=== PATIENT | male | born 1975 | race Caucasian/White ===

== ENCOUNTER 2018-02-07 11:58 | Emergency (ER) | payer MEDICARE, MEDICAID, SELFPAY ==
[2018-02-07 12:04] VITALS: BP 108/77; PULSE 99; RESP 18; TEMP 36.6; O2SAT 98
--- NOTE | 2018-02-07 12:24 | W.ED.GENAD ---
Discharge Plan Disposition Patient Disposition: HOME Condition: Good Discharge Details Chief Complaint: RespSymp Clinical Impression: Acute bronchitis Primary Care Provider: NONE,NONE ED Provider: Ibrahima Akhtar Home Meds and New Rx's Prescriptions: New doxycycline hyclate 100 mg capsule 100 mg PO BID 10 Days Qty: 20 RF: 0 Continue aripiprazole [Abilify] 20 MG tablet 20 mg PO DAILY RF: 0 Discharge Instructions Additional Instructions: Return for worsening difficulty breathing, chest pain, or any other acute concerns. Continue your efforts to decrease smoking. Follow-up with regular doctor if not improved in 1 weeks to Medical Decision Making MDM Narrative Medical decision making narrative: 42-year-old male presents with cough, congestion, production of sputum and sinus pressure over 2 weeks time. He is a smoker. Is consistent with acute sinusitis and bronchitis. He is without distress or hypoxia. Will treat with a course of antibiotics. Discussed with the patient home management, as well as follow-up and return precautions. Stable for discharge at this time HPI - General Adult General Date/Time Provider Initiated Documentation: 02/07/18 12:24. Limitations to Documentation: no limitations. Information obtained by: patient. History of Present Illness described as moderate, and is localized to the chest. Patient started experiencing this day(s) No relieving factors improve symptom(s), Patient notes cough; denies chest pain. Patient did receive the following treatments prior to arrival, none HPI Narrative: Cough and congestion: This is a 42-year-old male smoker presents with now 2 weeks of sinus pressure, postnasal drip, dull, nearly constant cough productive of yellow sputum. Is been moderate to severe, worsened with smoking, improved with rest. He has positive sick contacts with a friend. No shortness of breath or chest pain. Related Data Home Medications Medication Instructions Recorded Confirmed aripiprazole [Abilify] 20 mg PO DAILY 10/27/12 02/07/18 Previous Rx's Medication Instructions Recorded doxycycline hyclate 100 mg PO BID 10 Days #20 cap 02/07/18 Allergies Allergy/AdvReac Type Severity Reaction Status Date / Time healy milk AdvReac Uncoded 02/07/18 12:09 General Stated Complaint: RespSymp ARNAV: 4 Review of Systems Review of Systems 7 systems reviewed, otherwise negative Constitutional Reports as per HPI PFSH Social History Smoking/Tobacco Use Status: Current every day Exam Const General: cooperative, healthy appearing and comfortable Orientation: alert [facility] Head: normal to inspection and normocephalic Ears: hearing grossly normal bilaterally and TM's normal bilaterally Face and sinus: normal facial exam and sinus tenderness Eyes General: appearance normal, both eyes and all related structures Eyelids: eyelids normal Pupils: PERRL Chest Chest: normal inspection of the chest and normal palpation of entire chest wall Resp Effort & Inspection: normal respiratory effort and able to speak in complete sentences Auscultation: clear to auscultation bilaterally and other (Cough noted) GI Inspection: normal to inspection Palpation: soft and no hepatosplenomegaly Neuro General: alert, awake and oriented x3 Extrem General: normal to inspection and full ROM Psych Appearance: grossly normal Mental Status: mental status grossly normal Speech and Movement: speech and movement normal Course Vital Signs Temperature 36.6 C 02/07/18 12:04 Pulse 99 H 02/07/18 12:04 Respiratory Rate 02/07/18 12:04 Blood Pressure 108/77 02/07/18 12:04 Pulse Oximetry 98 02/07/18 12:04 Temperature 36.6 C 02/07/18 12:04 Pulse 99 H 02/07/18 12:04 Respiratory Rate 18 02/07/18 12:04 Blood Pressure 108/77 02/07/18 12:04 Pulse Oximetry 98 02/07/18 12:04
--- NOTE | 2018-02-07 12:29 | ED.GENADUL_ITS ---
Discharge Plan Disposition Patient Disposition: HOME Condition: Good Discharge Details Chief Complaint: RespSymp Clinical Impression: Acute bronchitis Primary Care Provider: NONE,NONE ED Provider: Ibrahima Akhtar Home Meds and New Rx's Prescriptions: New doxycycline hyclate 100 mg capsule 100 mg PO BID 10 Days Qty: 20 RF: 0 Continue aripiprazole [Abilify] 20 MG tablet 20 mg PO DAILY RF: 0 Discharge Instructions Additional Instructions: Return for worsening difficulty breathing, chest pain, or any other acute concerns. Continue your efforts to decrease smoking. Follow-up with regular doctor if not improved in 1 weeks to Medical Decision Making MDM Narrative Medical decision making narrative: 42-year-old male presents with cough, congestion, production of sputum and sinus pressure over 2 weeks time. He is a smoker. Is consistent with acute sinusitis and bronchitis. He is without distress or hypoxia. Will treat with a course of antibiotics. Discussed with the patient home management, as well as follow-up and return precautions. Stable for discharge at this time HPI - General Adult General Date/Time Provider Initiated Documentation: 02/07/18 12:24 . Limitations to Documentation: no limitations . Information obtained by: patient . History of Present Illness described as moderate, and is localized to the chest. Patient started experiencing this day(s) No relieving factors improve symptom(s), Patient notes cough; denies chest pain. Patient did receive the following treatments prior to arrival, none HPI Narrative: Cough and congestion: This is a 42-year-old male smoker presents with now 2 weeks of sinus pressure, postnasal drip, dull, nearly constant cough productive of yellow sputum. Is been moderate to severe, worsened with smoking, improved with rest. He has positive sick contacts with a friend. No shortness of breath or chest pain. Related Data Home Medications Medication Instructions Recorded Confirmed aripiprazole [Abilify] 20 mg PO DAILY 10/27/12 02/07/18 Previous Rx's Medication Instructions Recorded doxycycline hyclate 100 mg PO BID 10 Days #20 cap 02/07/18 Allergies Allergy/AdvReac Type Severity Reaction Status Date / Time healy milk AdvReac Uncoded 02/07/18 12:09 General Stated Complaint: RespSymp ARNAV: 4 Review of Systems Review of Systems 7 systems reviewed, otherwise negative Constitutional Reports as per HPI PFSH Social History Smoking/Tobacco Use Status: Current every day Exam Const General: cooperative, healthy appearing and comfortable Orientation: alert [facility] Head: normal to inspection and normocephalic Ears: hearing grossly normal bilaterally and TM's normal bilaterally Face and sinus: normal facial exam and sinus tenderness Eyes General: appearance normal, both eyes and all related structures Eyelids: eyelids normal Pupils: PERRL Chest Chest: normal inspection of the chest and normal palpation of entire chest wall Resp Effort & Inspection: normal respiratory effort and able to speak in complete sentences Auscultation: clear to auscultation bilaterally and other (Cough noted) GI Inspection: normal to inspection Palpation: soft and no hepatosplenomegaly Neuro General: alert, awake and oriented x3 Extrem General: normal to inspection and full ROM Psych Appearance: grossly normal Mental Status: mental status grossly normal Speech and Movement: speech and movement normal Course Vital Signs Temperature 36.6 C 02/07/18 12:04 Pulse 99 H 02/07/18 12:04 Respiratory Rate 02/07/18 12:04 Blood Pressure 108/77 02/07/18 12:04 Pulse Oximetry 98 02/07/18 12:04 Temperature 36.6 C 02/07/18 12:04 Pulse 99 H 02/07/18 12:04 Respiratory Rate 18 02/07/18 12:04 Blood Pressure 108/77 02/07/18 12:04 Pulse Oximetry 98 02/07/18 12:04
== END 2018-02-07 12:40 | disposition home or self-care (01) ==
PROVIDERS: Emergency Provider Emergency Medicine
DX: J20.9 Acute bronchitis, unspecified (principal); F17.210 Nicotine dependence, cigarettes, uncomplicated
CPT/HCPCS: 99283

== ENCOUNTER 2021-07-28 01:15 | Emergency (ER) | payer MEDICARE, MEDICAID, SELFPAY ==
[2021-07-28 01:20] VITALS: BP 125/86; PULSE 120; RESP 18; TEMP 36.6; O2SAT 98
--- NOTE | 2021-07-28 01:25 | W.ED.GENAD ---
Discharge Plan Disposition Patient Disposition: HOME Condition: Good Discharge Details Clinical Impression: Pain, dental, Dental infection Primary Care Provider: None,None ED Provider: Vernon Fisher Home Meds and New Rx's Prescriptions: New penicillin V potassium 500 mg tablet 500 mg PO QID 10 Days Qty: 40 0RF Continued aripiprazole [Abilify] 20 MG tablet 20 mg PO DAILY 0RF Label Comments: states he doesn't need it-06/26-may take med tonight, pt states that he last took this yesterday 06/27/15 Discharge Instructions Instructions: Dental Abscess (ED) Additional Instructions: Please take 800 mg of ibuprofen every 6 hours and 1000 mg of Tylenol every 6 hours to help with the inflammation and pain. These are the maximum doses. Please take the antibiotic as directed to help with the infection in your tooth. Please use the dental list that we have provided to contact the dentist for prompt follow-up and evaluation for tooth removal. If you notice any worsening of your symptoms, or any new symptoms such as difficulty swallowing, difficulty breathing, vomiting, diarrhea, fever, chills, shortness of breath, chest pain, numbness, weakness, or fainting , please return immediately to the emergency department for reevaluation. Please follow up with your primary care provider as soon as possible for reassessment and reevaluation. As always, it was a pleasure participating in your medical care today. Medical Decision Making 45-year-old male presents today for dental pain. Patient states that for the last 12 hours he has had pain in his left lower molar. He has not yet been able to follow-up with the dentist. He denies fever. He denies chest pain, shortness of breath, or difficulty swallowing. He has taken Tylenol and Motrin but this has not helped his pain. He denies any other complaints at this time. Physical exam demonstrates notably poor dentition, and disease molars. No evidence of periapical abscess. No signs of Ludewig's angina or airway compromise. Patient likely has mild pulpitis and infection causing his pain. Blood pressure stable. No signs of concerning swelling whatsoever at this time. Patient does not want a dental block currently. We we will give penicillin V here, and a small bottle for home as well as a prescription. He does have a dentist he follows up with however we will give him his dental sheet as well. Discussed red flags which to return. I have extensively reviewed the treatment plan and discharge instructions with the patient. I have addressed all patient concerns at this time. The patient was made aware of what symptoms to monitor for that would warrant a return to the emergency department. Discussed the plan with the patient, they demonstrate verbal understanding and agreement with our assessment and plan at this time. The documentation in this chart was dictated using [employer] dictation software. Please excuse any dictation errors. HPI General Date/Time Provider Initiated Documentation: 07/28/21 01:16. HPI Narrative: 45-year-old male presents today for dental pain. Patient states that for the last 12 hours he has had pain in his left lower molar. He has not yet been able to follow-up with the dentist. He denies fever. He denies chest pain, shortness of breath, or difficulty swallowing. He has taken Tylenol and Motrin but this has not helped his pain. He denies any other complaints at this time. Related Data Home Medications Medication Instructions Recorded Confirmed aripiprazole 20 mg tablet (Abilify) 20 mg PO DAILY 10/27/12 07/28/21 penicillin V potassium 500 mg 500 mg PO QID 10 Days #40 tab 07/28/21 tablet Previous Rx's Medication Instructions Recorded penicillin V potassium 500 mg 500 mg PO QID 10 Days #40 tab 07/28/21 tablet Allergies Allergy/AdvReac Type Severity Reaction Status Date / Time healy milk AdvReac Uncoded 07/28/21 01:23 General Stated Complaint: DentalOral ARNAV: 4 Review of Systems All systems reviewed & are unremarkable except as noted in HPI and below PFSH All Active Problems Psychiatric diagnosis deferred (Acute) Pain, dental (Acute) Dental infection (Acute) Social History Smoking/Tobacco Use Status: Current every day Smoking risk assessment performed?: Yes Drug use: Occasionally Do you feel safe at home: Yes Do you feel safe in your relationship?: Yes Exam Narrative Exam Narrative: 1.Const: Well-nourished, Well-developed, appearing stated age 2.Eyes: PERRL, no conjunctival injection, and symmetrical lids. 3.ENT: Atraumatic external nose and ears. Moist MM. Neck: Symmetric, trachea midline, No thyromegaly. Notably poor dentition throughout. Lower posterior molars are fractured with notable chronic infection. Palpation reveals no evidence of periapical abscess. No significant swelling or edema. No evidence of Ludewig's angina. No signs of airway compromise or jaw swelling whatsoever. 4.CVS: +S1/S2, No murmurs or gallops. Peripheral pulses 2+ and equal in all extremities. Brisk capillary refill in all extremities. 5.RESP: Unlabored respiratory effort. Clear to auscultation bilaterally. No wheezes rales or rhonchi 6.GI: Soft, Nontender/Nondistended, No hepatosplenomegaly. No guarding or rebound. 7.MSK: Normocephalic/Atraumatic, Extremities w/o deformity or ttp No cyanosis or clubbing, Normal movement of all extremities 8.Skin: Warm, Dry. No rashes or lesions. 9.Neuro: basketball assembler II-XII grossly intact. Sensation grossly intact, no focal neurologic deficits. 10.Psych: (AAO) x3. Appropriate mood and affect Course Vital Signs Vital signs: Vital Signs Temperature 36.6 C 07/28/21 01:20 Pulse 120 H 07/28/21 01:20 Respiratory Rate 18 07/28/21 01:20 Blood Pressure 125/86 07/28/21 01:20 Pulse Oximetry 98 07/28/21 01:20 Temperature 36.6 C 07/28/21 01:20 Temperature Source Temporal Artery Scan 07/28/21 01:20 Pulse 120 H 07/28/21 01:20 Respiratory Rate 18 07/28/21 01:20 Blood Pressure 125/86 07/28/21 01:20 Blood Pressure Position Sitting 07/28/21 01:20 Pulse Oximetry 98 07/28/21 01:20 Pain Level 8 07/28/21 01:20
[2021-07-28] MEDS: Penicillin V POTASSIUM 500 MG TAB PO (01:27)
[2021-07-28] MEDS: Penicillin V POTASSIUM 500 MG TAB, 4 TABS/BTL PO (01:27)
== END 2021-07-28 01:32 | disposition home or self-care (01) ==
PROVIDERS: Emergency Provider Student in an Organized Health Care Education/Training Program
DX: R68.84 Jaw pain (principal); K04.7 Periapical abscess without sinus
CPT/HCPCS: 99283

== ENCOUNTER 2022-04-30 22:46 | Emergency (ER) | payer MEDICARE, MEDICAID, SELFPAY ==
[2022-04-30 23:02] VITALS: BP 116/64; PULSE 94; RESP 18; TEMP 37.3; O2SAT 97
--- NOTE | 2022-04-30 23:45 | ED.GENADUL_ITS ---
Discharge Plan Disposition Patient Disposition: Home Condition: Stable Discharge Details Clinical Impression: Sinusitis Primary Care Provider: None,None ED Provider: Mian Villanueva Home Meds and New Rx's Prescriptions: New amoxicillin-pot clavulanate 875-125 mg tablet 1 tab PO BID Qty: 20 0RF Continued cyanocobalamin (vitamin B-12) 1,000 mcg capsule 1,000 mcg PO DAILY gabapentin 100 mg capsule 100 mg PO TID thiamine HCl (vitamin B1) 100 mg tablet 100 mg PO DAILY aspirin [Adult Aspirin Regimen] 81 mg tablet,delayed release (DR/EC) 81 mg PO DAILY multivitamin Tablet 1 tab PO DAILY vitamin E mixed 400 unit capsule PO aripiprazole [Abilify] 20 MG tablet 20 mg PO DAILY Label Comments: states he doesn't need it-06/26-october take med tonight, pt states that he last took this yesterday 06/27/15 Discharge Instructions Instructions: Sinusitis (ED) Additional Instructions: if not better or improving within a week follow up with your primary care provider or express care if you feel more ill, have difficulty breathing or difficulty swallowing liquids return to the emergency department Medical Decision Making 46 yo male who states he has a history of asthma and also chronic smoker, comes in with 1 week of sinus congestion, mild sore throat and dry cough. He denies fevers, chills, chest pain, dyspnea, neck pain/stiffness, difficulty swallowing, rashes. He kermit alcohol or drug use. He arrives stable speaking in full sentences with normal swallowing on exam. He has pain with percussion over the maxillary sinuses, no periorbital swelling, eomi without pain, normal posterior pharynx with midline uvula, no restricted neck movements, no pain over the hyoid no submandibular swelling. Clear lung sounds. Given his well appearance suspect viral sinusitis vs uri but given it has been a week feel antibiotics could be of benefit so will start augmentin. He appears well and has clear lung sounds so do not feel xray indicated. He is out of his albuterol inhaler and is between pcp's so will provide this for him. He is stable for d/c, advised to f/u with pcp vs express care if not improving within a week, return precautions given Differential Diagnosis Differential Diagnosis: sinusitis, viral uri, bronhcitis, asthma, copd Sign Out No HPI General Mode of arrival: ambulatory . Date/Time Provider Initiated Documentation: 04/30/22 23:37 . Limitations to Documentation: no limitations . Information obtained by: patient . History of Present Illness 46 year old M presents to the emergency department with the chief complaint of sinus congestion, described as moderate, Patient started experiencing this week(s) (1) and it has been constant. No relieving factors improve symptom(s), No exacerbating factors reported . Patient notes cough. Patient did receive the following treatments prior to arrival, none Related Data Home Medications Medication Instructions Recorded Confirmed aripiprazole 20 mg tablet (Abilify) 20 mg PO DAILY 10/27/12 07/28/21 aspirin 81 mg tablet,delayed 81 mg PO DAILY 04/24/22 release (Adult Aspirin Regimen) cyanocobalamin (vitamin B-12) 1,000 mcg PO DAILY 04/24/22 1,000 mcg capsule gabapentin 100 mg capsule 100 mg PO TID 04/24/22 multivitamin 1 tab PO DAILY 04/24/22 thiamine HCl (vitamin B1) 100 mg 100 mg PO DAILY 04/24/22 tablet vitamin E mixed 400 unit capsule unit PO 04/24/22 amoxicillin 875 mg-potassium 1 tab PO BID #20 tabs 04/30/22 clavulanate 125 mg tablet Previous Rx's Medication Instructions Recorded amoxicillin 875 mg-potassium 1 tab PO BID #20 tabs 04/30/22 clavulanate 125 mg tablet Allergies Allergy/AdvReac Type Severity Reaction Status Date / Time bee venom protein (honey bee) Allergy Verified 04/24/22 11:26 naproxen Allergy Verified 04/24/22 11:26 prednisone Allergy Verified 04/24/22 11:26 shrimp Allergy Verified 04/24/22 11:26 healy milk AdvReac Uncoded 07/28/21 01:23 General Stated Complaint: RespSymp ARNAV: 4 Review of Systems All systems reviewed & are unremarkable except as noted in HPI and below Constitutional Constitutional: Denies chills, Denies fever(s) and Denies weakness Eyes Eyes: Denies loss of vision ENT Ears, Nose, Mouth, and Throat: Denies change in voice Cardiovascular Cardiovascular: Denies chest pain and Denies dyspnea Respiratory Respiratory: Denies dyspnea Gastrointestinal Gastrointestinal: Denies abdominal pain, Denies nausea and Denies vomiting Neurologic Neurologic: Denies loss of vision and Denies weakness PFSH All Active Problems (Updated 04/30/22 @ 23:53 by Mian Villanueva MD) Psychiatric diagnosis deferred (Acute) Sinusitis (Acute) Social History Smoking/Tobacco Use Status: Current every day Smoking risk assessment performed?: Yes Alcohol Intake: never Drug use: Occasionally Substance use type: does not use Do you feel safe at home: Yes Do you feel safe in your relationship?: Yes Course Vital Signs Vital signs: Vital Signs Temperature 37.3 C 04/30/22 23:02 Pulse 94 H 04/30/22 23:02 Respiratory Rate 18 04/30/22 23:02 Blood Pressure 116/64 04/30/22 23:02 Pulse Oximetry 97 04/30/22 23:02 Temperature 37.3 C 04/30/22 23:02 Temperature Source Tympanic 04/30/22 23:02 Pulse 94 H 04/30/22 23:02 Respiratory Rate 18 04/30/22 23:02 Respiratory Effort 04/30/22 23:05 Respiratory Depth Normal 04/30/22 23:05 Blood Pressure 116/64 04/30/22 23:02 Blood Pressure Position Supine 04/30/22 23:02 Pulse Oximetry 97 04/30/22 23:02 Oxygen Delivery Method Room Air 04/30/22 23:02 Oxygen Flow Rate 0 04/30/22 23:02 Pain Level 0 04/30/22 23:02
== END 2022-05-01 | disposition home or self-care (01) ==
PROVIDERS: Emergency Provider Emergency Medicine
DX: J01.80 Other acute sinusitis (principal)
CPT/HCPCS: 99283

== ENCOUNTER 2022-05-20 23:26 | Emergency (ER) | payer MEDICARE, MEDICAID, SELFPAY ==
[2022-05-20 23:31] VITALS: BP 124/84; PULSE 92; RESP 18; TEMP 36.4; O2SAT 98
--- NOTE | 2022-05-20 23:49 | ED.GENADUL_ITS ---
Discharge Plan Disposition Patient Disposition: Home Condition: Improving Discharge Details Clinical Impression: Loose sputum Primary Care Provider: None,None ED Provider: Ibrahima Akhtar Home Meds and New Rx's Prescriptions: New guaifenesin [Mucinex] 600 mg tablet extended release 12hr 600 mg PO Q12H PRNQty: 10 0RF Continued cyanocobalamin (vitamin B-12) 1,000 mcg capsule 1,000 mcg PO DAILY gabapentin 100 mg capsule 100 mg PO TID thiamine HCl (vitamin B1) 100 mg tablet 100 mg PO DAILY aspirin [Adult Aspirin Regimen] 81 mg tablet,delayed release (DR/EC) 81 mg PO DAILY multivitamin Tablet 1 tab PO DAILY vitamin E mixed 400 unit capsule PO aripiprazole [Abilify] 20 MG tablet 20 mg PO DAILY Label Comments: states he doesn't need it-06/26-october take med tonight, pt states that he last took this yesterday 06/27/15 No Action amoxicillin-pot clavulanate 875-125 mg tablet 1 tab PO BID Qty: 20 0RF Discharge Instructions Additional Instructions: Home to rest this evening. Please use the Mucinex as prescribed. Continue efforts to decrease tobacco use. There is no evidence that you have a contagious illness at this time. Medical Decision Making 46-year-old male presents from home complaining of persistent cough and congestion, worried that he may have gotten his roommates ill. He was treated for sinusitis at the end of April, completed a course of antibiotics and now states his sputum has changed from green to clear-colored. He is well-appearing and his exam is reassuring. Discussed with him that he may have slowly to resolve sinusitis. We will trial a course of Mucinex. He is stable and appropriate for discharge to home. HPI General Mode of arrival: ambulatory . Date/Time Provider Initiated Documentation: 05/20/22 23:26 . Limitations to Documentation: no limitations . Information obtained by: patient . History of Present Illness 46 year old M presents to the emergency department with the chief complaint of Cough, improving, described as moderate, and is localized to the chest. Patient reports no radiation. Patient started experiencing this day(s) and it has been intermittent. No relieving factors improve symptom(s), No exacerbating factors reported . Patient notes cough; denies fever/chills and headaches. Patient did receive the following treatments prior to arrival, none Related Data Home Medications Medication Instructions Recorded Confirmed aripiprazole 20 mg tablet (Abilify) 20 mg PO DAILY 10/27/12 07/28/21 aspirin 81 mg tablet,delayed 81 mg PO DAILY 04/24/22 release (Adult Aspirin Regimen) cyanocobalamin (vitamin B-12) 1,000 mcg PO DAILY 04/24/22 1,000 mcg capsule gabapentin 100 mg capsule 100 mg PO TID 04/24/22 multivitamin 1 tab PO DAILY 04/24/22 thiamine HCl (vitamin B1) 100 mg 100 mg PO DAILY 04/24/22 tablet vitamin E mixed 400 unit capsule unit PO 04/24/22 amoxicillin 875 mg-potassium 1 tab PO BID #20 tabs 04/30/22 clavulanate 125 mg tablet guaifenesin 600 mg tablet, 600 mg PO Q12H PRN #10 tabs 05/20/22 extended release 12 hr (Mucinex) Previous Rx's Medication Instructions Recorded amoxicillin 875 mg-potassium 1 tab PO BID #20 tabs 04/30/22 clavulanate 125 mg tablet guaifenesin 600 mg tablet, 600 mg PO Q12H PRN #10 tabs 05/20/22 extended release 12 hr (Mucinex) Allergies Allergy/AdvReac Type Severity Reaction Status Date / Time bee venom protein (honey bee) Allergy Verified 04/24/22 11:26 naproxen Allergy Verified 04/24/22 11:26 prednisone Allergy Verified 04/24/22 11:26 shrimp Allergy Verified 04/24/22 11:26 healy milk AdvReac Uncoded 07/28/21 01:23 General Stated Complaint: RespSymp ARNAV: 4 Review of Systems Narrative: Sputum has changed to clear, no fever. PFSH All Active Problems (Updated 05/20/22 @ 23:51 by Ibrahima Akhtar MD) Psychiatric diagnosis deferred (Acute) Sinusitis (Acute) Loose sputum (Acute) Social History Smoking/Tobacco Use Status: Current every day Smoking risk assessment performed?: Yes Alcohol Intake: never Drug use: Occasionally Substance use type: does not use Do you feel safe at home: Yes Do you feel safe in your relationship?: Yes Exam Narrative Exam Narrative: GEN: awake, alert, oriented 3. Pleasant, well groomed, interactive. HEAD: Normocephalic, atraumatic ENT: Mucous membranes moist, oropharynx unremarkable, tympanic membrane's clear bilaterally, external ear exam unremarkable EYES: PERRL, EOMI NECK: Full ROM, no ALEXANDRA, no menigismus CHEST/RESP: Nontender, clear to auscultation bilateral, no wheeze/rhonchi/rales CARDIOVASCULAR: RRR, no murmur, rub consuelo. 2+ Rad pulse bilateral ABDOMEN: Soft, nontender, no mass. +Bowel sounds EXT: Full ROM, no edema, no rash Neuro: Grossly normal neurologic exam, conversant, interactive. Psych: Speech fluent, thoughts congruent, affect normal Course Vital Signs Vital signs: Vital Signs Temperature 36.4 C L 05/20/22 23:31 Pulse 92 H 05/20/22 23:31 Respiratory Rate 18 05/20/22 23:31 Blood Pressure 124/84 05/20/22 23:31 Pulse Oximetry 98 05/20/22 23:31 Temperature 36.4 C L 05/20/22 23:31 Temperature Source Temporal Artery Scan 05/20/22 23:31 Pulse 92 H 05/20/22 23:31 Respiratory Rate 18 05/20/22 23:31 Respiratory Effort 05/20/22 23:37 Respiratory Depth Normal 05/20/22 23:37 Blood Pressure 124/84 05/20/22 23:31 Blood Pressure Position Sitting 05/20/22 23:31 Pulse Oximetry 98 05/20/22 23:31 Oxygen Delivery Method Room Air 05/20/22 23:31 Oxygen Flow Rate 0 05/20/22 23:31 Pain Level 1 05/20/22 23:31
== END 2022-05-20 23:55 | disposition home or self-care (01) ==
PROVIDERS: Emergency Provider Emergency Medicine
DX: R09.3 Abnormal sputum (principal)
CPT/HCPCS: 99283

== ENCOUNTER 2022-07-19 14:55 | Outpatient (REF) | payer MEDICARE, MEDICAID, SELFPAY ==
[2022-07-21 09:42] LABS: HIV-1/2 Ag & Ab Screen Negative (Negative)
[2022-07-23 09:42] LABS: Hepatitis C Ab w Rflx HCV PCR Negative (Negative)
== END 2022-07-19 14:56 | disposition home or self-care (01) ==
LOC: NCHCN 14:55
PROVIDERS: Visit Provider Physician Assistant Medical
DX: F11.10 Opioid abuse, uncomplicated (principal); Z11.4 Encounter for screening for human immunodeficiency virus [HIV]; Z11.59 Encounter for screening for other viral diseases
CPT/HCPCS: 86803; 87389

== ENCOUNTER 2022-07-25 23:04 | Emergency (ER) | payer MEDICARE, MEDICAID, SELFPAY ==
[2022-07-25 23:12] VITALS: BP 113/68; PULSE 84; RESP 16; TEMP 37; O2SAT 97
--- NOTE | 2022-07-25 23:48 | ED.GENADUL_ITS ---
Discharge Plan Disposition Patient Disposition: Home Condition: Stable Discharge Details Clinical Impression: Wound infection, Cellulitis of forearm, left Primary Care Provider: None,None ED Provider: Balbina Becker Home Meds and New Rx's Prescriptions: New clindamycin HCl 150 mg capsule 450 mg PO QID 7 Days Qty: 84 0RF Continued cyanocobalamin (vitamin B-12) 1,000 mcg capsule 1,000 mcg PO DAILY gabapentin 100 mg capsule 100 mg PO TID thiamine HCl (vitamin B1) 100 mg tablet 100 mg PO DAILY aspirin [Adult Aspirin Regimen] 81 mg tablet,delayed release (DR/EC) 81 mg PO DAILY multivitamin Tablet 1 tab PO DAILY vitamin E mixed 400 unit capsule PO aripiprazole [Abilify] 20 MG tablet 20 mg PO DAILY Patient Comments: states he doesn't need it-06/26-october take med ethel, pt states that he last took this yesterday 06/27/15 amoxicillin-pot clavulanate 875-125 mg tablet 1 tab PO BID Qty: 20 0RF guaifenesin [Mucinex] 600 mg tablet extended release 12hr 600 mg PO Q12H PRNQty: 10 0RF Discharge Instructions Instructions: Wound Infection (ED), Cellulitis (ED) Additional Instructions: Keep wound clean and dry. Cover wound with bandage if risk of contamination. Otherwise you can keep the wound open to air if resting at home to allow edges to dry and heal. A prescription for antibiotics has been sent electronically to your pharmacy to take as directed until finished. Your COVID, influenza and RSV tests today are negative. Follow-up at the walk-in clinic as scheduled tomorrow for results of your needlestick exposure blood testing and continued testing as indicated and recommended. Follow-up with your primary care doctor in 1 week. Return to the emergency department with any worsening or new concerning symptoms. Discharge Data Discharge Date/Time-TO BE ENTERED AT DEPARTURE: 07/26/22 01:39 Discharge Physician: Balbina Becker Medical Decision Making 46-year-old male presents with open wound to his left wrist for the past 2 days. He also reports needlestick injury to his left hand 1 week ago. Patient has gone to a walk-in clinic within the last week and had blood tests status post blood and body fluid exposure via needlestick and will follow-up there tomorrow for those results. These 2 wounds appear likely unrelated. Patient states he is concerned that the wound on his left wrist is a result of AIDS. Discussed with patient that it is important that he follows up in the walk-in clinic for results of his HIV testing tomorrow and for continued testing per their protocol likely at 3, 6 and 12 months. Discussed with patient that the wound on his left wrist appears infected likely secondary to popping it causing a cellulitis which is mild. His left palmar wound does not appear acutely infected and is healing well. Will obtain screening labs including CBC, CMP, blood cultures. We will also giv e a tetanus. We will give a dose of IV clindamycin here and send a prescription for oral clindamycin to his pharmacy. Patient also requested a COVID test for recent diarrhea. Will obtain a FLUVID. He appears comfortable, nontoxic and in no acute distress. His vitals are within normal limits. Labs reviewed. White blood cell count 10. FLUVID negative. Wound was dressed and patient felt comfortable going home. Prescription for clindamycin sent electronically to his pharmacy. He has an appointment to follow-up at the walk- in clinic tomorrow for results of his post needlestick exposure blood testing. It is recommended that he continue testing for needlestick exposure as indicated and recommended. Advised to follow up with the primary care doctor for re- evaluation. Usual and customary return precautions given prior to discharge. Medical Records Medical records reviewed: Yes I reviewed the patient's medical records. Lab Data Lab results reviewed: Yes I reviewed the patient's lab results. Labs: 07/25/22 23:58 Blood Blood Culture - Pending 07/25/22 23:30 Blood Blood Culture - Pending Laboratory Tests Range/Units 07/25/22 07/25/22 07/26/22 23:30 23:30 00:20 WBC (4.4-10.8) 10^3/uL 10.83 H RBC (4.36-5.78) 10^6/uL 4.91 Hgb (13.5-17.5) g/dL 14.6 Hct (40.0-50.0) % 42.8 MCV (80-95) fL 87 MCH (27.0-33.0) pg 29.7 MCHC (32.0-36.0) % 34.1 RDW (11.8-14.1) % 12.8 Plt Count (130-400) 10^3/uL 210 MPV (8.0-11.0) fL 9.3 Immature Gran % 0.3 Neutrophils % 54.2 Lymphocytes % 36.6 Monocytes % 6.6 Eosinophils % 1.8 Basophils % 0.5 Nucleated RBC % (0.0-0.3) % 0.0 Absolute Neutrophils (1.2-6.7) 10^3/uL 5.87 Absolute Lymphocytes (1.2-3.4) 10^3/uL 3.96 H Absolute Monocytes (0.1-0.8) 10^3/uL 0.71 Absolute Eosinophils (0.0-0.7) 10^3/uL 0.19 Absolute Basophils (0.0-0.2) 10^3/uL 0.05 Sodium (136-145) mmol/L 141 Potassium (3.5-5.1) mmol/L 3.7 Chloride (98-107) mmol/L 106 Carbon Dioxide (21.0-32.0) mmol/L 27.7 Anion Gap (3-11) mmol/L 7.3 BUN (7-18) mg/dL 19 H Creatinine (0.70-1.30) mg/dL 1.2 Est GFR (CKD-EPI 2020) (mL/min/1.73m2) 76.00 Glucose (74-106) mg/dL 109 H Calcium (8.5-10.1) mg/dL 9.2 Total Bilirubin (0.2-1.0) mg/dL 0.4 AST (15-37) U/L 10 L ALT (16-63) U/L 29 Alkaline Phosphatase (46-116) U/L 89 Total Protein (6.4-8.2) g/dL 7.4 Albumin (3.4-5.0) g/dL 3.8 COVID-19 Source Nasopharynx SARS-CoV-2 (PCR) (Negative) Negative Influenza Type A (PCR) (Negative) Negative Influenza Type B (PCR) (Negative) Negative RSV (PCR) (Negative) Negative HPI General Mode of arrival: ambulatory . Date/Time Provider Initiated Documentation: 07/25/22 23:23 . Limitations to Documentation: no limitations . Information obtained by: patient . HPI Narrative: Patient is a 46-year-old male presents with concern for wound to his left wrist for the past few days. Patient states he popped the wound last night and now the area is more red, painful and swollen and leaking clear fluid. Patient states 1 week ago he accidentally had a needlestick to his left palm when he placed his hand under a pillow and was stuck with a hollow needle. Patient states he had an acquaintance stay at his house and sleep in his son's bed and he believes he hit this needle underneath his son's pillow. Patient states he went to the local walk-in clinic a few days ago and had needlestick testing including hepatitis C and HIV. Patient states he is up-to-date on his hepatitis B vaccines. Patient did not receive any medications. Patient states he was referred for follow-up with a PCP, mental health and dentist also at that time. Patient is unsure of his tetanus status. Related Data Home Medications Medication Instructions Recorded Confirmed aripiprazole 20 mg tablet (Abilify) 20 mg PO DAILY 10/27/12 07/28/21 aspirin 81 mg tablet,delayed 81 mg PO DAILY 04/24/22 release (Adult Aspirin Regimen) cyanocobalamin (vitamin B-12) 1,000 mcg PO DAILY 04/24/22 1,000 mcg capsule gabapentin 100 mg capsule 100 mg PO TID 04/24/22 multivitamin 1 tab PO DAILY 04/24/22 thiamine HCl (vitamin B1) 100 mg 100 mg PO DAILY 04/24/22 tablet vitamin E mixed 400 unit capsule unit PO 04/24/22 amoxicillin 875 mg-potassium 1 tab PO BID #20 tabs 04/30/22 clavulanate 125 mg tablet guaifenesin 600 mg tablet, 600 mg PO Q12H PRN #10 tabs 05/20/22 extended release 12 hr (Mucinex) clindamycin HCl 150 mg capsule 450 mg PO QID 7 days #84 caps 07/26/22 Previous Rx's Medication Instructions Recorded amoxicillin 875 mg-potassium 1 tab PO BID #20 tabs 04/30/22 clavulanate 125 mg tablet guaifenesin 600 mg tablet, 600 mg PO Q12H PRN #10 tabs 05/20/22 extended release 12 hr (Mucinex) clindamycin HCl 150 mg capsule 450 mg PO QID 7 days #84 caps 07/26/22 Allergies Allergy/AdvReac Type Severity Reaction Status Date / Time bee venom protein (honey bee) Allergy Verified 07/25/22 23:22 naproxen Allergy Verified 07/25/22 23:22 prednisone Allergy Verified 07/25/22 23:22 shrimp Allergy Verified 07/25/22 23:22 healy milk AdvReac Uncoded 07/25/22 23:22 General Stated Complaint: Cellulitis ARNAV: 3 Review of Systems All systems reviewed & are unremarkable except as noted in HPI and below Constitutional Constitutional: Reports as per HPI, Denies chills and Denies fever(s) Eyes Eyes: Denies blurry vision ENT Ears, Nose, Mouth, and Throat: Denies dizziness, Denies sore throat and Denies throat swelling Cardiovascular Cardiovascular: Denies chest pain and Denies dyspnea Respiratory Respiratory: Denies cough and Denies dyspnea Gastrointestinal Gastrointestinal: Denies abdominal pain, Denies diarrhea and Denies vomiting Genitourinary Genitourinary: Denies hematuria and Denies dysuria Musculoskeletal Musculoskeletal: Denies back pain and Denies numbness Integumentary/Breasts Skin/Breast: Denies lesions and Denies rash Neurologic Neurologic: Denies dizziness, Denies localized weakness and Denies numbness Allergic/Immunologic Allergic/Immunologic: Denies throat swelling PFSH All Active Problems (Updated 07/26/22 @ 01:05 by Balbina Becker DO) Wound infection (Acute) Cellulitis of forearm, left (Acute) Psychiatric diagnosis deferred (Acute) Medical History (Updated 07/26/22 @ 01:05 by Balbina Becker DO) Depression Schizophrenia Surgical History (Updated 07/25/22 @ 23:46 by Balbina Becker DO) H/O thumb surgery Social History Smoking/Tobacco Use Status: Current every day Tobacco Type: cigarettes Smoking risk assessment performed?: Yes Alcohol Intake: current Drug use: Occasionally Substance use type: marijuana and prescription drug Details: former drug abuser Do you feel safe at home: Yes Do you feel safe in your relationship?: Yes Exam Const General: cooperative, healthy appearing and no acute distress Orientation: alert, awake and oriented x3 HENMT Head: normal to inspection Face and sinus: normal facial exam Eyes General: appearance normal, both eyes and all related structures Pupils: PERRL EOM: EOM intact bilaterally Neck Neck: normal visual inspection and No submandibular swelling Lymphatic: no lymphadenopathy noted Chest Chest: normal inspection of the chest and no tenderness Resp Effort & Inspection: normal respiratory effort and able to speak in complete sentences Auscultation: clear to auscultation bilaterally Cardio Rate: regular rate Rhythm: regular rhythm Male General Exam: Yes normal external exam Back/Spine/Pelvis Thoracic/Lumbar Spine: thoracic and lumbar spine normal to inspection Pelvis: no pain with anterior-posterior compression Skin General skin exam: no rashes or lesions noted Neuro General: patient alert, patient awake and patient oriented x3 Cognition: normal cognition Speech: speech normal Motor: muscle tone normal throughout Sensory Exam: no sensory deficits noted Extrem General: full ROM and capillary refill normal Elbow/forearm/wrist images: 1. 1.5x1.5cm open wound with surrounding pink granulation tissue. There is serous drainage in center. 2. Faintly demarcated erythema, minimal induration and tenderness to palpation surrounding wound. Hand/finger images: 1. 3 x 3 mm healing crust with dried pink granulation tissue around edges. No erythema, induration, fluctuance or drainage. No significant tenderness to palpation. Psych Appearance: grossly normal Mental Status: mental status grossly normal Speech and Movement: speech and movement normal Affect: normal affect Course Vital Signs Vital signs: Vital Signs Temperature 98.6 F 07/25/22 23:12 Pulse 84 07/25/22 23:12 Respiratory Rate 16 07/25/22 23:12 Blood Pressure 113/68 07/25/22 23:12 Pulse Oximetry 97 07/25/22 23:12 Temperature 98.6 F 07/25/22 23:12 Temperature Source Oral 07/25/22 23:12 Pulse 84 07/25/22 23:12 Respiratory Rate 16 07/25/22 23:12 Respiratory Effort Normal 07/25/22 23:20 Blood Pressure 113/68 07/25/22 23:12 Blood Pressure Position Sitting 07/25/22 23:12 Pulse Oximetry 97 07/25/22 23:12 Oxygen Delivery Method Room Air 07/25/22 23:12 Oxygen Flow Rate 0 07/25/22 23:12 Pain Level 8 07/25/22 23:12 Lab/Test Results Lab/Test Results: 07/25/22 23:39 Blood Blood Culture - Pending 07/25/22 23:39 Blood Blood Culture - Pending
[2022-07-26 00:06] LABS: Abs Immature Grans 0.03 10^3/uL (0.0-0.06); Absolute Basophil Count 0.05 10^3/uL (0.0-0.2); Absolute Eosinophil Count 0.19 10^3/uL (0.0-0.7); Absolute Lymphocyte Count 3.96 10^3/uL (1.2-3.4); Basophils % 0.5; Eosinophils % 1.8; HCT 42.8 % (40.0-50.0); HGB 14.6 g/dL (13.5-17.5); Immature Grans % 0.3; Lymphocytes % 36.6; MCH 29.7 pg (27.0-33.0); MCHC 34.1 % (32.0-36.0); MCV 87 fL (80-95); MPV 9.3 fL (8.0-11.0); Monocytes % 6.6; Neutrophils % 54.2; Platelet Count 210 10^3/uL (130-400); RBC 4.91 10^6/uL (4.36-5.78); RDW 12.8 % (11.8-14.1); WBC 10.83 10^3/uL (4.4-10.8)
[2022-07-26 00:11] LABS: Absolute Monocyte Count 0.71 10^3/uL (0.1-0.8); Absolute Neutrophil Count 5.87 10^3/uL (1.2-6.7)
[2022-07-26] MEDS: Normal Saline 1,000 ML 1000 ML IV (00:17)
[2022-07-26] MEDS: CLINDAMYCIN 600 MG/50 ML BAG 100 MG IVPB (00:17)
[2022-07-26 00:24] LABS: ALT 29 U/L (16-63); AST 10 U/L (15-37); Albumin 3.8 g/dL (3.4-5.0); Alkaline Phosphatase 89 U/L (46-116); Anion Gap 7.3 mmol/L (3-11); BUN 19 mg/dL (7-18); Bilirubin, Total 0.4 mg/dL (0.2-1.0); CO2 27.7 mmol/L (21.0-32.0); CREATININE 1.2 mg/dL (0.70-1.30); Calcium 9.2 mg/dL (8.5-10.1); Chloride 106 mmol/L (98-107); Glucose 109 mg/dL (74-106); Potassium 3.7 mmol/L (3.5-5.1); Sodium 141 mmol/L (136-145); Total Protein 7.4 g/dL (6.4-8.2)
[2022-07-26 01:15] LABS: COVID-19 PCR Negative (Negative); Influenza A PCR Negative (Negative); Influenza B PCR Negative (Negative); RSV PCR Negative (Negative)
[2022-07-26 01:16] LABS: Source Nasopharynx
== END 2022-07-26 01:39 | disposition home or self-care (01) ==
PROVIDERS: Emergency Provider Physician Assistant
DX: S61.502A Unspecified open wound of left wrist, initial encounter (principal); L03.114 Cellulitis of left upper limb; Z23 Encounter for immunization; Z20.822 Contact with and (suspected) exposure to COVID-19; W46.0XXA Contact with hypodermic needle, initial encounter; X50.1XXA Overexertion from prolonged static or awkward postures, initial encounter
CPT/HCPCS: 36415; 80053; 87040; 87637; 90471; 96361; 96365; 99284; 85025

== ENCOUNTER 2022-08-09 16:16 | Emergency (ER) | payer MEDICARE, MEDICAID, SELFPAY ==
[2022-08-09 16:24] VITALS: BP 148/85; PULSE 127; RESP 18; TEMP 36.8; O2SAT 98
--- NOTE | 2022-08-09 16:53 | ED.GENADUL_ITS ---
Discharge Plan Disposition Condition: Stable Discharge Details Chief Complaint: PsychEval Clinical Impression: Schizophrenia Primary Care Provider: DebLocal ED Provider: Mian Villanueva Home Meds and New Rx's Prescriptions: No Action cyanocobalamin (vitamin B-12) 1,000 mcg capsule 1,000 mcg PO DAILY Patient Comments: not taking gabapentin 100 mg capsule 100 mg PO TID Patient Comments: not taking thiamine HCl (vitamin B1) 100 mg tablet 100 mg PO DAILY Patient Comments: does not take aspirin [Adult Aspirin Regimen] 81 mg tablet,delayed release (DR/EC) 81 mg PO DAILY Patient Comments: not taking multivitamin Tablet 1 tab PO DAILY Patient Comments: does not take vitamin E mixed 400 unit capsule PO Patient Comments: does not take aripiprazole [Abilify] 20 MG tablet 20 mg PO DAILY Patient Comments: states he doesn't need it-06/26-october take med tonight, pt states that he last took this yesterday 06/27/15 amoxicillin-pot clavulanate 875-125 mg tablet 1 tab PO BID Qty: 20 0RF guaifenesin [Mucinex] 600 mg tablet extended release 12hr 600 mg PO Q12H PRNQty: 10 0RF Patient Comments: not taking Medical Decision Making 46 yo male with hx of paranoid schizophrenia comes in with complaint of I need help for schizoprenia and drug abuse. He states he has not taken any prescription medications for over 2 years and has been taking ritalin off the street. HE denies si/hi. He denies alcohol use. He arrives caox4 calm and cooperative but does seem anxious. He has no focal deficits, does move in the bed frequently and seems restless. I suspect decompensated schizophrenia, will send screening labs and have mental health evaluate. mental health evaluate, will be voluntary for psych placement for decompensated schizophrenia Differential Diagnosis Differential Diagnosis: schizoprenia, drug abuse Medical Records Medical records reviewed: Yes I reviewed the patient's medical records. Lab Data Lab results reviewed: Yes I reviewed the patient's lab results. ECG Data Attestation: I personally reviewed and interpreted this ECG (s) as follows: Prior ECG tracings: not available for review Interpretation: sinus rhythm, rate of 100, pr 202, no acute st t wave ischemic findings HPI General Mode of arrival: ambulatory . Date/Time Provider Initiated Documentation: 08/09/22 16:32 . Limitations to Documentation: no limitations . Information obtained by: patient . History of Present Illness 46 year old M presents to the emergency department with the chief complaint of I need help, described as moderate, Patient started experiencing this year(s) (2) and it has been constant. No relieving factors improve symptom(s), No exacerbating factors reported . Patient notes denies fever/chills, headaches and nausea/vomiting. Patient did receive the following treatments prior to arrival, none Related Data Home Medications Medication Instructions Recorded Confirmed aripiprazole 20 mg tablet (Abilify) 20 mg PO DAILY 10/27/12 08/09/22 aspirin 81 mg tablet,delayed 81 mg PO DAILY 04/24/22 release (Adult Aspirin Regimen) cyanocobalamin (vitamin B-12) 1,000 mcg PO DAILY 04/24/22 1,000 mcg capsule gabapentin 100 mg capsule 100 mg PO TID 04/24/22 multivitamin 1 tab PO DAILY 04/24/22 thiamine HCl (vitamin B1) 100 mg 100 mg PO DAILY 04/24/22 tablet vitamin E mixed 400 unit capsule unit PO 04/24/22 amoxicillin 875 mg-potassium 1 tab PO BID #20 tabs 04/30/22 clavulanate 125 mg tablet guaifenesin 600 mg tablet, 600 mg PO Q12H PRN #10 tabs 05/20/22 extended release 12 hr (Mucinex) Previous Rx's Medication Instructions Recorded amoxicillin 875 mg-potassium 1 tab PO BID #20 tabs 04/30/22 clavulanate 125 mg tablet guaifenesin 600 mg tablet, 600 mg PO Q12H PRN #10 tabs 05/20/22 extended release 12 hr (Mucinex) Allergies Allergy/AdvReac Type Severity Reaction Status Date / Time bee venom protein (honey bee) Allergy Verified 07/25/22 23:22 naproxen Allergy Verified 07/25/22 23:22 prednisone Allergy Verified 07/25/22 23:22 shrimp Allergy Verified 07/25/22 23:22 healy milk AdvReac Uncoded 08/09/22 16:29 General Stated Complaint: PsychEval ARNAV: 3 Review of Systems All systems reviewed & are unremarkable except as noted in HPI and below Constitutional Constitutional: Denies chills, Denies fever(s) and Denies weakness Cardiovascular Cardiovascular: Denies chest pain and Denies dyspnea Respiratory Respiratory: Denies cough and Denies dyspnea Gastrointestinal Gastrointestinal: Denies abdominal pain, Denies nausea and Denies vomiting Genitourinary Genitourinary: Denies dysuria Musculoskeletal Musculoskeletal: Denies joint swelling Integumentary/Breasts Skin/Breast: Denies rash Neurologic Neurologic: Denies weakness Psychiatric Psychiatric: Denies depression PFSH All Active Problems (Updated 08/09/22 @ 20:16 by Mian Villanueva MD) Wound infection (Acute) Cellulitis of forearm, left (Acute) Schizophrenia (Chronic) Psychiatric diagnosis deferred (Acute) Medical History (Updated 08/09/22 @ 20:16 by Mian Villanueva MD) Depression Schizophrenia Surgical History (Updated 07/25/22 @ 23:46 by Balbina Becker DO) H/O thumb surgery Social History Smoking/Tobacco Use Status: Current every day Tobacco Type: cigarettes Smoking risk assessment performed?: Yes Alcohol Intake: current Drug use: Binges Substance use type: marijuana and prescription drug Do you feel safe at home: Yes Do you feel safe in your relationship?: Yes Exam Const General: no acute distress Orientation: alert HENMT Head: normal to inspection Ears: external ears normal General nose exam: external nose normal Mouth: moist mucous membranes Eyes General: appearance normal, both eyes and all related structures Neck Neck: normal visual inspection Resp Effort & Inspection: normal respiratory effort and able to speak in complete sentences Cardio Rate: regular rate Skin General skin exam: no rashes or lesions noted Neuro General: patient alert and patient oriented x3 Extrem General: normal to inspection Psych Appearance: disheveled Course Vital Signs Vital signs: Vital Signs Temperature 36.8 C 08/09/22 16:24 Pulse 127 H 08/09/22 16:24 Respiratory Rate 18 08/09/22 16:24 Blood Pressure 148/85 H 08/09/22 16:24 Pulse Oximetry 98 08/09/22 16:24 Temperature 36.8 C 08/09/22 16:24 Temperature Source Tympanic 08/09/22 16:24 Pulse 127 H 08/09/22 16:24 Respiratory Rate 18 08/09/22 16:24 Respiratory Effort Normal, Non-Labored 08/09/22 16:27 Blood Pressure 148/85 H 08/09/22 16:24 Pulse Oximetry 98 08/09/22 16:24 Oxygen Delivery Method Room Air 08/09/22 16:24 Oxygen Flow Rate 0 08/09/22 16:24
--- NOTE | 2022-08-09 17:00 | RT.EKG_ITS ---
APPROVED REPORT Exam: Resting ECG Reason for Exam: tachycardia Patient Location: E HR:101 bpm ECG Measurements Heart Rate 101 AXIS NJ 202 P 50 QRSd 130 QRS -3 QT 342 T 20 QTc 437 Conclusion Sinus rhythm...normal P axis, V-rate 60- 99 Atrial premature complex...SV complex w/ short R-R interval Borderline prolonged NJ interval...NJ >197, V-rate 91-120 Right bundle branch block...QRSd>120, terminal axis(90,270) Borderline ST elevation, lateral leads...ST >0.06mV, I aVL V5 V6
[2022-08-09 17:20] LABS: Abs Immature Grans 0.02 10^3/uL (0.0-0.06); Absolute Basophil Count 0.05 10^3/uL (0.0-0.2); Absolute Eosinophil Count 0.03 10^3/uL (0.0-0.7); Absolute Lymphocyte Count 2.11 10^3/uL (1.2-3.4); Absolute Monocyte Count 0.46 10^3/uL (0.1-0.8); Absolute Neutrophil Count 5.75 10^3/uL (1.2-6.7); Basophils % 0.6; Eosinophils % 0.4; HCT 38.7 % (40.0-50.0); HGB 13.7 g/dL (13.5-17.5); Immature Grans % 0.2; Lymphocytes % 25.1; MCH 30.2 pg (27.0-33.0); MCHC 35.4 % (32.0-36.0); MCV 85 fL (80-95); MPV 9.3 fL (8.0-11.0); Monocytes % 5.5; Neutrophils % 68.2; Platelet Count 210 10^3/uL (130-400); RBC 4.54 10^6/uL (4.36-5.78); RDW 13.1 % (11.8-14.1); RDW-SD 40.5 fL; WBC 8.42 10^3/uL (4.4-10.8)
[2022-08-09 17:40] LABS: Salicylate < 2.8 mg/dL (<2.8)
[2022-08-09 17:42] LABS: ALT 26 U/L (16-63); AST 12 U/L (15-37); Albumin 3.8 g/dL (3.4-5.0); Alkaline Phosphatase 79 U/L (46-116); Anion Gap 12.5 mmol/L (3-11); BUN 17 mg/dL (7-18); Bilirubin, Total 0.4 mg/dL (0.2-1.0); CO2 23.5 mmol/L (21.0-32.0); CREATININE 1.2 mg/dL (0.70-1.30); Calcium 9.8 mg/dL (8.5-10.1); Chloride 103 mmol/L (98-107); Glucose 144 mg/dL (74-106); Sodium 139 mmol/L (136-145); Total Protein 7.5 g/dL (6.4-8.2)
[2022-08-09 17:43] LABS: Acetaminophen < 2 ug/mL (10-30); ETHANOL BLOOD < 3.0 mg/dL (<10)
[2022-08-09 18:18] LABS: Bilirubin Negative (Negative); Blood Negative (Negative); Clarity Clear (Clear); Glucose Negative (Negative); Ketones Negative (Negative); Leukocyte Esterase Negative (Negative); Nitrite Negative (Negative); Specific Gravity >= 1.030 (1.005-1.025); Urobilinogen 0.2 mg/dL (Up to 0.2)
[2022-08-09 18:29] LABS: *AMPHETAMINES SCREEN URINE Negative (Negative); *BARBITURATES SCREEN URINE Negative (Negative); *BENZODIAZEPINES SCREEN URINE Negative (Negative); Cannabinoids THC Positive (Negative); Cocaine Screen,Urine Negative (Negative); METHADONE URINE SCREEN Negative (Negative); OPIATES URINE SCREEN Negative (Negative)
[2022-08-09 18:33] LABS: Tricyclic Antidepressants Positive (Negative)
[2022-08-10 04:56] VITALS: BP 117/77; PULSE 63; RESP 20; TEMP 36.7; O2SAT 97
--- NOTE | 2022-08-10 08:35 | NUR.NOTE ---
pt under continuous observation at this time. has been up multiple times to use restroom. pt acting manic but not aggressive at this time.
--- NOTE | 2022-08-10 09:15 | NUR.NOTE ---
Kendal from has been in to evaluate patient
--- NOTE | 2022-08-10 09:37 | NUR.NOTE ---
pt has been offered food
--- NOTE | 2022-08-10 10:42 | CMSP_ITS ---
- If Service Date Differs Date of service: 08/10/22 Time of Service: 10:42 Care Management Safety Plan Status: Voluntary - Reason for Wait Reason for Wait: Inpatient Admission VOLUNTARY FOR INPATIENT PSYCHIATRIC STABILIZATION. Patient is appropriate in all interactions since arriving at [facility]; Pt has demonstrated appropriate coping and communication skills, has articulated his needs and concerns and is fully engaged during staff interactions. Safety plan has been established with patient, and care team, to adhere to patient goals, identify restrictions based on behavioral status, address nutrition, and determine allowed personal belongings, tools for hygiene and personal care. Determine level of activity including ambulation, level of supervision, visitors, and determine privileges based on behaviors and level of engagement by pt. SAFETY PLAN: 1. Will remain on suicide precautions. In Paper Clothes 2. Will remain in room under direct supervision of one-on-one staff at all times provided by [employer]; LAZ, DELIVERY COORDINATOR variety saw operator. 3. May have paper cups, plates, finger foods as well as a cardboard spoon with which to eat meals. 4. Follow [facility] Management of the Admitted Behavioral Health Patient policy. 5. Comfort bath system only, shower permitted with escort at RN discretion. 6. No personal belongings-soft items permitted at RN discretion. 7. Visitors-none at this time. 8. Activities: soft cart items approved per RN discretion. 9. Bathroom privileges with escort in the ED, available in room without limitation on M/S. 10. Phone: contact limited to family at this time, via cordless phone at RN discretion. 11. Due to VOLUNTARY status, if patient wishes to leave [facility], staff will contact [facility] Crisis Screener ([phone]) and On-Call Oracle Database Administrator ([phone]) as soon as possible. In the event of elopement, notify [place] [employer] ([phone]). Patient is currently voluntarily at [facility] and seeking inpatient admission when a bed becomes available. [facility] Frontline Credit Review Officer will continue seeking pl acement. Please contact the Apple Picking Supervisor Oracle Database Administrator ([phone]) and [facility] Credit Review Officer ([phone]) for any needed changes in the Safety Plan. Safety plan has been provided to interdepartmental care team.
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
--- NOTE | 2022-08-10 12:37 | NUR.NOTE ---
pt brought by [employer] and security to shower. pt is calm and acting appropriately at this time.
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
--- NOTE | 2022-08-10 16:08 | W.EDPROG ---
Date of service: 08/10/22 Time of Service: 16:08 Medical Decision Making Patient was signed out by Dr. Fisher, please see his documentation regarding prior ED course. Patient awaiting psychiatric treatment placement for psychosis. I spoke with the patient's observer who notes he intermittently sleeps today and at times quite interactive with odd responses. When asked this morning if he wanted breakfast he said that he would take a banana because he is a banana. When asked if he wanted yogurt he noted that he was yogurt. Patient cooperative. Still awaiting inpatient bed placement. Sign Out Sign Out Data: Sign Out Comment: voluntary for decompensated schizophrenia, calm and cooperative, hasn't been on meds in over 2 years Last updated by Mian Villanueva MD at 08/09/22 20:23 Sign Out Comment: Voluntary, schizophrenic, follow-up with mental health Last updated by Vernon Fisher DO at 08/10/22 08:05 Discharge Plan Disposition Condition: Stable Discharge Details Chief Complaint: PsychEval Clinical Impression: Schizophrenia Primary Care Provider: Deb,Local ED Provider: Shayan Pan Home Meds and New Rx's Prescriptions: No Action cyanocobalamin (vitamin B-12) 1,000 mcg capsule 1,000 mcg PO DAILY Patient Comments: not taking gabapentin 100 mg capsule 100 mg PO TID Patient Comments: not taking thiamine HCl (vitamin B1) 100 mg tablet 100 mg PO DAILY Patient Comments: does not take aspirin [Adult Aspirin Regimen] 81 mg tablet,delayed release (DR/EC) 81 mg PO DAILY Patient Comments: not taking multivitamin Tablet 1 tab PO DAILY Patient Comments: does not take vitamin E mixed 400 unit capsule PO Patient Comments: does not take aripiprazole [Abilify] 20 MG tablet 20 mg PO DAILY Patient Comments: states he doesn't need it-06/26-october take med tonight, pt states that he last took this yesterday 06/27/15 amoxicillin-pot clavulanate 875-125 mg tablet 1 tab PO BID Qty: 20 0RF guaifenesin [Mucinex] 600 mg tablet extended release 12hr 600 mg PO Q12H PRNQty: 10 0RF Patient Comments: not taking
--- NOTE | 2022-08-10 17:05 | NUR.NOTE ---
pt provided with dinner tray
[2022-08-10 17:31] VITALS: BP 135/83; PULSE 76; RESP 18; O2SAT 99
--- NOTE | 2022-08-10 17:41 | W.EDPROG ---
Date of service: 08/10/22 Time of Service: 17:41 Medical Decision Making pt remains voluntary for schizophrenia, currenlty calm and cooperative, no issues during day shift reported. Will continue to monitor until placement found Sign Out Sign Out Data: Sign Out Comment: voluntary for decompensated schizophrenia, calm and cooperative, hasn't been on meds in over 2 years Last updated by Mian Villanueva MD at 08/09/22 20:23 Sign Out Comment: Voluntary, schizophrenic, follow-up with mental health Last updated by Vernon Fisher DO at 08/10/22 08:05 Sign Out Comment: Awaiting psychiatric treatment facility placement. Stable. Last updated by Shayan Pan MD at 08/10/22 16:37 Discharge Plan Disposition Condition: Stable Discharge Details Chief Complaint: PsychEval Clinical Impression: Schizophrenia Primary Care Provider: Deb,[facility] ED Provider: Mian Villanueva Home Meds and New Rx's Prescriptions: No Action cyanocobalamin (vitamin B-12) 1,000 mcg capsule 1,000 mcg PO DAILY Patient Comments: not taking gabapentin 100 mg capsule 100 mg PO TID Patient Comments: not taking thiamine HCl (vitamin B1) 100 mg tablet 100 mg PO DAILY Patient Comments: does not take aspirin [Adult Aspirin Regimen] 81 mg tablet,delayed release (DR/EC) 81 mg PO DAILY Patient Comments: not taking multivitamin Tablet 1 tab PO DAILY Patient Comments: does not take vitamin E mixed 400 unit capsule PO Patient Comments: does not take aripiprazole [Abilify] 20 MG tablet 20 mg PO DAILY Patient Comments: states he doesn't need it-06/26-october take med tonight, pt states that he last took this yesterday 06/27/15 amoxicillin-pot clavulanate 875-125 mg tablet 1 tab PO BID Qty: 20 0RF guaifenesin [Mucinex] 600 mg tablet extended release 12hr 600 mg PO Q12H PRNQty: 10 0RF Patient Comments: not taking
[2022-08-11] MEDS: Acetaminophen 500 MG TAB 1000 MG PO (05:14)
--- NOTE | 2022-08-11 08:06 | CMSP_ITS ---
- If Service Date Differs Date of service: 08/11/22 Time of Service: 08:06 Care Management Safety Plan Status: Voluntary - Reason for Wait Reason for Wait: Inpatient Admission VOLUNTARY FOR INPATIENT PSYCHIATRIC STABILIZATION. Remote service history with [facility]; per screener: Client is a previous client of [facility] and was followed by the [facility] program, however he was discharged from [facility] 2 days ago after no contact for over 2 years. Client presented to [facility] ED today with chief complaint of excessive substance use and report that he is diagnosed with schizoaffective disorder and has not been on medications in over 2 years. Patient is appropriate, currenlty calm and cooperative, no issues during day shift reported. Safety plan has been established with patient, and care team, to adhere to patient goals, identify restrictions based on behavioral status, address nutrition, and determine allowed personal belongings, tools for hygiene and personal care. Determine level of activity including ambulation, level of supervision, visitors, and determine privileges based on behaviors and level of engagement by pt. SAFETY PLAN: 1. Will remain on suicide precautions. In Paper Clothes 2. Will remain in room under direct supervision of one-on-one staff at all times provided by [employer]; LAZ, ELECTRIC LOCOMOTIVE CRANE OPERATOR communications media professor. 3. May have paper cups, plates, finger foods as well as a cardboard spoon with which to eat meals. 4. Follow [facility] Management of the Admitted Behavioral Health Patient policy. 5. Comfort bath system only, shower permitted with escort at RN discretion. 6. No personal belongings-soft items permitted at RN discretion. 7. Visitors-none at this time. 8. Activities: soft cart items approved per RN discretion. 9. Bathroom privileges with escort in the ED, available in room without limitation on M/S. 10. Phone: contact limited to family at this time, via cordless phone at RN discretion. 11. Due to VOLUNTARY status, if patient wishes to leave [facility], staff will contact [facility] Crisis Screener ([phone]) and On-Call Shipping And Receiving Assistant ([phone]) as soon as possible. In the event of elopement, notify [facility] Police ([phone]). Patient is currently voluntarily at [facility] and seeking inpatient admission when a bed becomes available. [facility] Frontline Telegraph Installer will continue seeking placement. Please contact the Crowd Controller Shipping And Receiving Assistant ([phone]) and [facility] Telegraph Installer ([phone]) for any needed changes in the Safety Plan. Safety plan has been provided to interdepartmental care team.
--- NOTE | 2022-08-11 08:06 | PDOC.CMSAFED ---
- If Service Date Differs Date of service: 08/11/22 Time of Service: 08:06 Care Management Safety Plan Status: Voluntary - Reason for Wait Reason for Wait: Inpatient Admission VOLUNTARY FOR INPATIENT PSYCHIATRIC STABILIZATION. Remote service history with [facility]; per screener: Client is a previous client of [facility] and was followed by the [employer] program, however he was discharged from [facility] 2 days ago after no contact for over 2 years. Client presented to [facility] ED today with chief complaint of excessive substance use and report that he is diagnosed with schizoaffective disorder and has not been on medications in over 2 years. Patient is appropriate, currenlty calm and cooperative, no issues during day shift reported. Safety plan has been established with patient, and care team, to adhere to patient goals, identify restrictions based on behavioral status, address nutrition, and determine allowed personal belongings, tools for hygiene and personal care. Determine level of activity including ambulation, level of supervision, visitors, and determine privileges based on behaviors and level of engagement by pt. SAFETY PLAN: 1. Will remain on suicide precautions. In Paper Clothes 2. Will remain in room under direct supervision of one-on-one staff at all times provided by [employer]; LAZ, THREAD TWISTER graduating machine operator. 3. May have paper cups, plates, finger foods as well as a cardboard spoon with which to eat meals. 4. Follow [facility] Management of the Admitted Behavioral Health Patient policy. 5. Comfort bath system only, shower permitted with escort at RN discretion. 6. No personal belongings-soft items permitted at RN discretion. 7. Visitors-none at this time. 8. Activities: soft cart items approved per RN discretion. 9. Bathroom privileges with escort in the ED, available in room without limitation on M/S. 10. Phone: contact limited to family at this time, via cordless phone at RN discretion. 11. Due to VOLUNTARY status, if patient wishes to leave [facility], staff will contact [facility] Crisis Screener ([phone]) and On-Call Manager House ([phone]) as soon as possible. In the event of elopement, notify [facility] Police ([phone]). Patient is currently voluntarily at [facility] and seeking inpatient admission when a bed becomes available. [facility] Frontline Website Optimization Strategist will continue seeking placement. Please contact the Allied Health Professional Manager House ([phone]) and [facility] Website Optimization Strategist ([phone]) for any needed changes in the Safety Plan. Safety plan has been provided to interdepartmental care team.
--- NOTE | 2022-08-11 16:17 | PDOC.MHPN2 ---
Date of service: 08/11/22 Time of Service: 16:17 PHQ-9 Over the last 2 weeks, how often have you been bothered by any of the following problems? 1. Little interest or pleasure in doing things: nearly every day 2. Feeling down, depressed, or hopeless: nearly every day 3. Trouble falling or staying asleep, or sleeping too much: more than half the days 4. Feeling tired or having little energy: nearly every day 5. Poor appetite or overeating: nearly every day 6. Feeling bad about yourself - or that you are a failure or have let yourself and your family down: more than half the days 7. Trouble concentrating on things, such as reading the newspaper or watching television: nearly every day 8. Moving or speaking so slowly that other people could have noticed? - Or the opposite - being so fidgety or restless that you have been moving around a lot more than usual: nearly every day 9. Thoughts that you would be better off or of hurting yourself in some way: not at all Total score: 22 If you checked off any problems, how difficult have these problems made it for you to do your work, take care of things at home, or get along with other people?: very difficult Source: Developed by Drs. Isacc Ovalle, Kandy Dai, Ric Rosales and colleagues, with an educational shellie from [employer]. Suicide Severity Rate CSSRS Have you wished you were or wished you could go to sleep and not wake up?: No Have you actually had any thoughts of killing yourself?: No CSSRS2 Have you been thinking about how you might do this?: No Have you had these thoughts and had some intention of acting on them?: No Have you started to work out or worked out the details of how to kill yourself? Do you intend to carry out this plan?: No CSSRS3 Have you ever done anything, started to do anything or prepared to do anything to end your life?: No CSSRS4 Was this within the past three months?: No Screening Score Total Score: 0 Screening: Negative Mental Health Emergency Note Release [facility] release signed:: Yes Reason for Visit Client is a previous client of [facility] and was followed by the adult outpatient program, however he was discharged from [facility] 2 days ago after no contact for over 2 years. Client presented to [facility] ED 08.09.22 with chief complaint of excessive substance abuse and report that he is diagnosed with schizoaffective disorder and has not been on medications in over 2 years. Client was initially assessed in person by TETE Isbell and is reassessed .04.25 by TETE Larkin. In the last 2 weeks has the pt presented for ES prior to today?: Unknown Client Information Client is: New Well Housed: Yes Non Suicidal Self Injury Current: No History: No Safety Risk/Harm to Self or Others Current Ideation to Harm Self or Others: No Risk: Does risk to harm exist?: yes. Access to means: Yes. Details: No intent however client's disposition puts him at risk to self and for others to harm him. . Counseling provided: Yes Risk: Moderate Risk Duty to warn indicated: No Asssessment/Mental Status Appearance: Disheveled Attitude: Cooperative Behavior: Unremarkable Speech: Soft Affect: Flat Mood: Other (withdrawn) Thought process: Goal directed, Circumstational and Tangential Hallucinations: No Delusions: No Attention: Unremarkable Perception: Not impaired Orientation: Disoriented in Situation Memory: Impaired in: Remote Insight: Poor Judgement: Fair Neurovegetative Symptoms Sleep: Increase Appetitie: Increase Interests: Decrease Energy: Decrease Libido: Not applicable Substance Use: Drug Issues: Dependence Do you use nicotine?: Yes Have you used substances in the last 7 days?: yes, Client reports to this contract technical writer that he has used every drug besides Xanax and peyote throughout his life. Client reports: today I snorted 10 mg of Ritalin and used Vicodin. I also smoke 1/2 ounce of marijuana daily. Client goes on to report: I have used $4 million worth of crack cocaine in the past 4 years. Additional Issues: Assaultive/Threatening Behavior: No Medical Concerns: No Client engaged in active self harm w/weapon: No Threatening to run away: No Child reported abuse/neglect: No Voluntarily presenting for services: Yes Domestic violence is a concern: No Extreme Psychosis or extreme behavior is present: No Impression Per TETE Isbell's note done 08.09.22: Client is a 46 y/o single male that lives in [place], [place] independently. Per clients report he is currently unemployed and has not been employed for the past 16-18 years. Client reports with symptoms most congruent with Schizoaffective disorder as evidenced by self-report of manic behavior, visual hallucinations of colors, disorganized and tangential thought process, and bizarre delusions. Client presents today watching TV and laying in bed. He presents as extremely relaxed and almost withdrawn. He is not as chatty or manic and yet, is not on any medications. He continues to have the diagnosis of Schizoaffective disorder, bipolar type. It is this clinician's professional opinion that the client continues to need a higher level of treatment because if he does not get said treatment he will continue to decompensate and this puts him at risk. Plan/Disposition Recommended Disposition: Hospitalization facilities contacted. Plan: Client will remain at [facility] pending acceptance to a psychiatric facility. He will be reassessed daily until placed or until he is able to safety plan back to the community with a safety plan and follow up.? Person reported agreement to plan: Yes Facilities contacted if Applicable [facility] Not accepted, No bed available [facility] Not accepted, No bed available [facility], [facility], No bed available Reports/communication Outcome discussed with: ED/Personnel
--- NOTE | 2022-08-11 18:34 | NUR.NOTE ---
Nursing Note: patient asked for an order for something for back pain, asked provider, ordered Tylenol, not patient does not want anything for pain.
[2022-08-11] MEDS: Acetaminophen 325 MG TAB 650 MG PO (19:49)
--- NOTE | 2022-08-12 08:00 | CMSP_ITS ---
- If Service Date Differs Date of service: 08/12/22 Time of Service: 08:00 Care Management Safety Plan Status: Voluntary - Reason for Wait Reason for Wait: Inpatient Admission Remote service history with [facility]; per screener: Client is a previous client of [facility] and was followed by the [employer] TECHNICIAN program, however he was discharged from [facility] 2 days ago after no contact for over 2 years. Client presented to [facility] ED today with chief complaint of excessive substance use and report that he is diagnosed with schizoaffective disorder and has not been on medications in over 2 years. Patient is appropriate, currenlty calm and cooperative, no issues during day shift reported. Safety plan has been established with patient, and care team, to adhere to patient goals, identify restrictions based on behavioral status, address nutrition, and determine allowed personal belongings, tools for hygiene and personal care. Determine level of activity including ambulation, level of supervision, visitors, and determine privileges based on behaviors and level of engagement by pt. SAFETY PLAN: 1. Will remain on suicide precautions. In Paper Clothes 2. Will remain in room under direct supervision of one-on-one staff at all times provided by [employer]; LAZ, DEGREASING SOLUTION MIXER vendor management consultant. 3. May have paper cups, plates, finger foods as well as a cardboard spoon with which to eat meals. 4. Follow [facility] Management of the Admitted Behavioral Health Patient policy. 5. Comfort bath system only, shower permitted with escort at RN discretion. 6. No personal belongings-soft items permitted at RN discretion. 7. Visitors-none at this time. 8. Activities: soft cart items approved per RN discretion. 9. Bathroom privileges with escort in the ED, available in room without limitation on M/S. 10. Phone: contact limited to family at this time, via cordless phone at RN discretion. 11. Due to VOLUNTARY status, if patient wishes to leave [facility], staff will contact [facility] Crisis Screener ([phone]) and On-Call Mental Health Consultant ([phone]) as soon as possible. In the event of elopement, notify [facility] Police ([phone]). Patient is currently voluntarily at [facility] and seeking inpatient admission when a bed becomes available. [facility] Frontline Slash Trimmer will continue seeking placement. Please contact the Client Services Vice President Mental Health Consultant ([phone]) and [facility] Slash Trimmer ([phone]) for any needed changes in the Safety Plan. Safety plan has been provided to interdepartmental care team.
--- NOTE | 2022-08-12 08:00 | PDOC.CMSAFED ---
- If Service Date Differs Date of service: 08/12/22 Time of Service: 08:00 Care Management Safety Plan Status: Voluntary - Reason for Wait Reason for Wait: Inpatient Admission Remote service history with [facility]; per screener: Client is a previous client of [facility] and was followed by the [employer] program, however he was discharged from [facility] 2 days ago after no contact for over 2 years. Client presented to [facility] ED today with chief complaint of excessive substance use and report that he is diagnosed with schizoaffective disorder and has not been on medications in over 2 years. Patient is appropriate, currenlty calm and cooperative, no issues during day shift reported. Safety plan has been established with patient, and care team, to adhere to patient goals, identify restrictions based on behavioral status, address nutrition, and determine allowed personal belongings, tools for hygiene and personal care. Determine level of activity including ambulation, level of supervision, visitors, and determine privileges based on behaviors and level of engagement by pt. SAFETY PLAN: 1. Will remain on suicide precautions. In Paper Clothes 2. Will remain in room under direct supervision of one-on-one staff at all times provided by [employer]; LAZ, SEWER CONTRACTOR supervisor properties. 3. May have paper cups, plates, finger foods as well as a cardboard spoon with which to eat meals. 4. Follow [facility] Management of the Admitted Behavioral Health Patient policy. 5. Comfort bath system only, shower permitted with escort at RN discretion. 6. No personal belongings-soft items permitted at RN discretion. 7. Visitors-none at this time. 8. Activities: soft cart items approved per RN discretion. 9. Bathroom privileges with escort in the ED, available in room without limitation on M/S. 10. Phone: contact limited to family at this time, via cordless phone at RN discretion. 11. Due to VOLUNTARY status, if patient wishes to leave [facility], staff will contact [facility] Crisis Screener ([phone]) and On-Call Lpc ([phone]) as soon as possible. In the event of elopement, notify [facility] Police ([phone]). Patient is currently voluntarily at [facility] and seeking inpatient admission when a bed becomes available. [facility] Frontline Coal Bagger will continue seeking placement. Please contact the Sales Representative [employer] Lpc ([phone]) and [facility] Coal Bagger ([phone]) for any needed changes in the Safety Plan. Safety plan has been provided to interdepartmental care team.
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
--- NOTE | 2022-08-12 13:16 | MHPN_ITS ---
Date of service: 08/12/22 Time of Service: 13:31 PHQ-9 Over the last 2 weeks, how often have you been bothered by any of the following problems? 1. Little interest or pleasure in doing things: nearly every day 2. Feeling down, depressed, or hopeless: nearly every day 3. Trouble falling or staying asleep, or sleeping too much: more than half the days 4. Feeling tired or having little energy: nearly every day 5. Poor appetite or overeating: nearly every day 6. Feeling bad about yourself - or that you are a failure or have let yourself and your family down: more than half the days 7. Trouble concentrating on things, such as reading the newspaper or watching television: nearly every day 8. Moving or speaking so slowly that other people could have noticed? - Or the opposite - being so fidgety or restless that you have been moving around a lot more than usual: nearly every day 9. Thoughts that you would be better off or of hurting yourself in some way: not at all Total score: 22 If you checked off any problems, how difficult have these problems made it for you to do your work, take care of things at home, or get along with other people?: very difficult Source: Developed by Drs. Isacc Ovalle, Kandy Dai, Ric Rosales and colleagues, with an educational shellie from [employer]. Suicide Severity Rate CSSRS Have you wished you were or wished you could go to sleep and not wake up?: No Have you actually had any thoughts of killing yourself?: No CSSRS2 Have you been thinking about how you might do this?: No Have you had these thoughts and had some intention of acting on them?: No Have you started to work out or worked out the details of how to kill yourself? Do you intend to carry out this plan?: No CSSRS3 Have you ever done anything, started to do anything or prepared to do anything to end your life?: No CSSRS4 Was this within the past three months?: No Screening Score Total Score: 0 Screening: Negative Mental Health Emergency Note Release [facility] release signed:: Yes Reason for Visit Client is a previous client of [facility] and was followed by the adult outpatient program, however he was discharged from [facility] 2 days ago after no contact for over 2 years. Client presented to [facility] ED 08.09.22 with chief complaint of excessive substance abuse and report that he is diagnosed with schizoaffective disorder and has not been on medications in over 2 years. Client was initially assessed in person by TETE Isbell and is reassessed 08.12.22 by TETE Larkin. In the last 2 weeks has the pt presented for ES prior to today?: No Client Information Client is: New Well Housed: Yes Non Suicidal Self Injury Current: No History: No Safety Risk/Harm to Self or Others Current Ideation to Harm Self or Others: No Risk: Does risk to harm exist?: No Risk: Moderate Risk Duty to warn indicated: No Asssessment/Mental Status Appearance: Disheveled Attitude: Cooperative and Friendly Behavior: Unremarkable Speech: Normal Affect: Flat Mood: Depressed Thought process: Unremarkable Hallucinations: No Delusions: No Attention: Unremarkable Perception: Not impaired Orientation: Disoriented in Situation Memory: Impaired in: Remote Insight: Fair Judgement: Fair Neurovegetative Symptoms Sleep: Increase Appetitie: Increase Interests: No change Energy: Decrease Libido: Not applicable Substance Use: Drug Issues: Dependence (Client reports to this customs entry writer that he has used every drug besides Xanax and peyote throughout his life. Client reports: today I snorted 10 mg of Ritalin and used Vicodin. I also smoke 1/2 ounce of marijuana daily. Client goes on to report: I have used $4 million worth of crack cocaine in the past) Do you use nicotine?: Yes Have you used substances in the last 7 days?: yes, Client reports to this customs entry writer that he has used every drug besides Xanax and peyote throughout his life. Client reports: today I snorted 10 mg of Ritalin and used Vicodin. I also smoke 1/2 ounce of marijuana daily. Client goes on to report: I have used $4 million worth of crack cocaine in the past 4 years. Additional Issues: Assaultive/Threatening Behavior: No Medical Concerns: No Client engaged in active self harm w/weapon: No Threatening to run away: No Child reported abuse/neglect: No Voluntarily presenting for services: Yes Domestic violence is a concern: No Extreme Psychosis or extreme behavior is present: No Impression Per TETE Isbell's note done 08.09.22: Client is a 46 y/o single male that lives in [place], [place] independently. Per clients report he is currently unemployed and has not been employed for the past 16-18 years. Client reports with symptoms most congruent with Schizoaffective disorder as evidenced by self- report of manic behavior, visual hallucinations of colors, disorganized and tangential thought process, and bizarre delusions. Today the client is sitting on the edge of his bed watching TV. He presents as very calm and relaxed. His thoughts appear to have slowed down almost serine. He makes fair eye contact, switching between this clinician and the TV. He reported good sleep and appetite and denied SI and HI. Client still is not taking any medications as they have not been offered however, the doctor is willing to offer some if he knows what he has taken in the past. Once this clinician was back to her computer a call was made to the ED with a list of meds he has been on in the past, Plan/Disposition Recommended Disposition: Hospitalization facilities contacted. Plan: Client will remain at [facility] pending acceptance to a psychiatric facility. He will be reassessed daily until placed or until he is able to safety plan back to the community with a safety plan and follow up. He will be offered voluntary medications today. Person reported agreement to plan: Yes Facilities contacted if Applicable [facility] Not accepted, No bed available [facility] Not accepted, No bed available [facility], [facility], No [facility] available Reports/communication Outcome discussed with: ED/Personnel
[2022-08-12] MEDS: ARIPiprazole 15 MG TAB PO (14:48)
--- NOTE | 2022-08-12 14:48 | NUR.NOTE ---
Nursing Note: Patient agreeable to oral medications. Took daily med without complicatio. Denies other needs at this time. Offered food ad water. Listening to music appropriately in room.
--- NOTE | 2022-08-12 16:57 | NUR.NOTE ---
Patient provided with dinner tray
--- NOTE | 2022-08-12 20:16 | W.EDPROG ---
Date of service: 08/12/22 Time of Service: 20:16 Medical Decision Making I received signout on this 46-year-old male with history of schizophrenia. Patient is medically cleared and in the emergency department voluntarily. Patient has been reinitiated on home aripiprazole. No active behavioral issues last shift. Will update documentation as clinically warranted and signed patient out to the oncoming daytime provider. Sign Out Sign Out Data: Sign Out Comment: voluntary for decompensated schizophrenia, calm and cooperative, hasn't been on meds in over 2 years Last updated by Mian Villanueva MD at 08/09/22 20:23 Sign Out Comment: Voluntary, schizophrenic, follow-up with mental health Last updated by Vernon Fisher DO at 08/10/22 08:05 Sign Out Comment: Awaiting psychiatric treatment facility placement. Stable. Last updated by Shayan Pan MD at 08/10/22 16:37 Sign Out Comment: voluntary for schizophrenia, no issues during day Last updated by Mian Villanueva MD at 08/10/22 18:08 Sign Out Comment: Voluntary for schizophrenia, stable, no interventions needed throughout the night Last updated by Vernon Fisher DO at 08/11/22 07:07 Sign Out Comment: voluntary, awaiting placement Last updated by Sam Young MD at 08/11/22 20:21 Sign Out Comment: Voluntary for schizophrenia, no interventions needed throughout the night. Last updated by Vernon Fisher DO at 08/12/22 07:59 Sign Out Comment: schizophrenia awaiting placement Last updated by Sam Young MD at 08/12/22 20:01 Discharge Plan Disposition Condition: Stable Discharge Details Chief Complaint: PsychEval Clinical Impression: Schizophrenia Primary Care Provider: Deb,Local ED Provider: Johny Martin Home Meds and New Rx's Prescriptions: No Action cyanocobalamin (vitamin B-12) 1,000 mcg capsule 1,000 mcg PO DAILY Patient Comments: not taking gabapentin 100 mg capsule 100 mg PO TID Patient Comments: not taking thiamine HCl (vitamin B1) 100 mg tablet 100 mg PO DAILY Patient Comments: does not take aspirin [Adult Aspirin Regimen] 81 mg tablet,delayed release (DR/EC) 81 mg PO DAILY Patient Comments: not taking multivitamin Tablet 1 tab PO DAILY Patient Comments: does not take vitamin E mixed 400 unit capsule PO Patient Comments: does not take aripiprazole [Abilify] 20 MG tablet 20 mg PO DAILY Patient Comments: states he doesn't need it-06/26-october take med ethel, pt states that he last took this yesterday 06/27/15 amoxicillin-pot clavulanate 875-125 mg tablet 1 tab PO BID Qty: 20 0RF guaifenesin [Mucinex] 600 mg tablet extended release 12hr 600 mg PO Q12H PRNQty: 10 0RF Patient Comments: not taking
--- NOTE | 2022-08-12 22:52 | NUR.NOTE ---
Nursing Note: pt requested bacitracin and new bandaid to old wound on the left wrist. Area cleaned and dressed.
[2022-08-13 06:40] VITALS: BP 128/77; PULSE 71; RESP 16; TEMP 36.4; O2SAT 96
[2022-08-13] MEDS: ARIPiprazole 15 MG TAB PO (08:12)
--- NOTE | 2022-08-13 08:23 | PDOC.CMSAFED ---
- If Service Date Differs Date of service: 08/13/22 Time of Service: 08:23 Care Management Safety Plan Status: Voluntary - Reason for Wait Reason for Wait: Inpatient Admission Remote service history with [facility]; per screener: Client is a previous client of [facility] and was followed by the [facility] program, however he was discharged from [facility] 2 days ago after no contact for over 2 years. Client presented to [facility] ED today with chief complaint of excessive substance use and report that he is diagnosed with schizoaffective disorder and has not been on medications in over 2 years. Per ER provider: Patient is medically cleared and in the emergency department voluntarily. Safety plan has been established with patient, and care team, to adhere to patient goals, identify restrictions based on behavioral status, address nutrition, and determine allowed personal belongings, tools for hygiene and personal care. Determine level of activity including ambulation, level of supervision, visitors, and determine privileges based on behaviors and level of engagement by pt. SAFETY PLAN: 1. Will remain on suicide precautions. In Paper Clothes 2. Will remain in room under direct supervision of one-on-one staff at all times provided by [employer]; LAZ, CONTINUOUS PICKLING LINE PICKLER HELPER supervisor type disk quality control. 3. May have paper cups, plates, finger foods as well as a cardboard spoon with which to eat meals. 4. Follow [facility] Management of the Admitted Behavioral Health Patient policy. 5. Comfort bath system only, shower permitted with escort at RN discretion. 6. No personal belongings-soft items permitted at RN discretion. 7. Visitors-none at this time. 8. Activities: soft cart items approved per RN discretion. 9. Bathroom privileges with escort in the ED, available in room without limitation on M/S. 10. Phone: contact limited to family at this time, via cordless phone at RN discretion. 11. Due to VOLUNTARY status, if patient wishes to leave [facility], staff will contact [facility] Crisis Screener ([phone]) and On-Call Supervisory It Specialist ([phone]) as soon as possible. In the event of elopement, notify [facility] Police ([phone]). Patient is currently voluntarily at [facility] and seeking inpatient admission when a bed becomes available. [facility] [employer] Supervisor will continue seeking placement. Please contact the [employer] Supervisory It Specialist ([phone]) and [facility] Roads Supervisor ([phone]) for any needed changes in the Safety Plan. Safety plan has been provided to interdepartmental care team.
--- NOTE | 2022-08-13 09:55 | NUR.NOTE ---
Nursing Note: Report received from Evelyne CHAU
--- NOTE | 2022-08-13 10:43 | ED.PROG_ITS ---
Date of service: 08/13/22 Time of Service: 10:43 Medical Decision Making Care was signed out by Dr. Martin, please see his documentation and prior ED documentation regarding ED course. Patient was noted to be medically clear at signout. Awaiting psychiatric placement. [facility] retreat nurse practitioner Madison called, I discussed case with her and she has agreed to accept the patient in transfer. Sign Out Sign Out Data: Sign Out Comment: voluntary for decompensated schizophrenia, calm and cooperative, hasn't been on meds in over 2 years Last updated by Mian Villanueva MD at 08/09/22 20:23 Sign Out Comment: Voluntary, schizophrenic, follow-up with mental health Last updated by Vernon Fisher DO at 08/10/22 08:05 Sign Out Comment: Awaiting psychiatric treatment facility placement. Stable. Last updated by Shayan Pan MD at 08/10/22 16:37 Sign Out Comment: voluntary for schizophrenia, no issues during day Last updated by Mian Villanueva MD at 08/10/22 18:08 Sign Out Comment: Voluntary for schizophrenia, stable, no interventions needed t hroughout the night Last updated by Vernon Fisher DO at 08/11/22 07:07 Sign Out Comment: voluntary, awaiting placement Last updated by Sam Young MD at 08/11/22 20:21 Sign Out Comment: Voluntary for schizophrenia, no interventions needed throughout the night. Last updated by Vernon Fisher DO at 08/12/22 07:59 Sign Out Comment: schizophrenia awaiting placement Last updated by Sam Young MD at 08/12/22 20:01 Sign Out Comment: Medically cleared voluntary patient no active behavioral issues last shift. Last updated by Johny Martin MD at 08/13/22 07:45 Discharge Plan Disposition Patient Disposition: Psychiatric Hospital/Unit Specific Psychiatric Facility: [facility] Discharge Details Clinical Impression: Schizophrenia ED Provider: Shayan Pan Home Meds and New Rx's Prescriptions: No Action cyanocobalamin (vitamin B-12) 1,000 mcg capsule 1,000 mcg PO DAILY Patient Comments: not taking gabapentin 100 mg capsule 100 mg PO TID Patient Comments: not taking thiamine HCl (vitamin B1) 100 mg tablet 100 mg PO DAILY Patient Comments: does not take aspirin [Adult Aspirin Regimen] 81 mg tablet,delayed release (DR/EC) 81 mg PO DAILY Patient Comments: not taking multivitamin Tablet 1 tab PO DAILY Patient Comments: does not take vitamin E mixed 400 unit capsule PO Patient Comments: does not take aripiprazole [Abilify] 20 MG tablet 20 mg PO DAILY Patient Comments: states he doesn't need it-06/26-october take med tonight, pt states that he last took this yesterday 06/27/15 guaifenesin [Mucinex] 600 mg tablet extended release 12hr 600 mg PO Q12H PRNQty: 10 0RF Patient Comments: not taking Discharge Data Discharge Date/Time-TO BE ENTERED AT DEPARTURE: 08/13/22 14:33
--- NOTE | 2022-08-13 14:38 | NUR.NOTE ---
Nursing Note: EMS at bedside. Pt belongings returned to pt. Leaving ED via stretcher w/ EMS at this time.
--- NOTE | 2022-08-14 11:19 | PDOC.ERCMPRO ---
- If Service Date Differs Date of service: 08/13/22 Time of Service: 13:00 Care Management Progress Note Jose Alfredo is discharged to [facility] for inpatient treatment. Pt is driven via secured transport by [email or web address] coordinated by CM. - Status Status: Voluntary
== END 2022-08-13 14:33 ==
PROVIDERS: Emergency Medicine; Emergency Provider Student in an Organized Health Care Education/Training Program
DX: F20.0 Paranoid schizophrenia (principal); F15.10 Other stimulant abuse, uncomplicated; R00.0 Tachycardia, unspecified
CPT/HCPCS: 80053; 80307; 93005; 99285; 80320; 80329; 81003; 84443; 85025; 93010

== ENCOUNTER 2022-09-27 13:39 | Outpatient (REF) | payer MEDICARE, MEDICAID, SELFPAY ==
[2022-09-27 15:52] LABS: Abs Immature Grans 0.01 10^3/uL (0.0-0.06); Absolute Basophil Count 0.05 10^3/uL (0.0-0.2); Absolute Eosinophil Count 0.17 10^3/uL (0.0-0.7); Absolute Lymphocyte Count 3.13 10^3/uL (1.2-3.4); Absolute Monocyte Count 0.52 10^3/uL (0.1-0.8); Absolute Neutrophil Count 2.81 10^3/uL (1.2-6.7); Basophils % 0.7; Eosinophils % 2.5; HCT 46.3 % (40.0-50.0); HGB 15.6 g/dL (13.5-17.5); Immature Grans % 0.1; Lymphocytes % 46.8; MCH 29.5 pg (27.0-33.0); MCHC 33.7 % (32.0-36.0); MCV 88 fL (80-95); MPV 10.1 fL (8.0-11.0); Monocytes % 7.8; Neutrophils % 42.1; Platelet Count 179 10^3/uL (130-400); RBC 5.28 10^6/uL (4.36-5.78); RDW 13.2 % (11.8-14.1); RDW-SD 42.5 fL; WBC 6.69 10^3/uL (4.4-10.8)
[2022-09-27 16:32] LABS: ALT 41 U/L (16-63); AST 18 U/L (15-37); Albumin 4.2 g/dL (3.4-5.0); Alkaline Phosphatase 83 U/L (46-116); Anion Gap 7.9 mmol/L (3-11); BUN 20 mg/dL (7-18); Bilirubin, Total 0.6 mg/dL (0.2-1.0); CO2 29.1 mmol/L (21.0-32.0); CREATININE 1.1 mg/dL (0.70-1.30); Calcium 9.1 mg/dL (8.5-10.1); Calculated LDL 115 mg/dL (<100); Chloride 104 mmol/L (98-107); Cholesterol 189 mg/dL (<200); Estimated GFR 84.37 (mL/min/1.73m2); Glucose 108 mg/dL (74-106); HDL Cholesterol 57 mg/dL (40-60); Potassium 4.1 mmol/L (3.5-5.1); Sodium 141 mmol/L (136-145); TSH (W/Ref FT4) 0.68 uIU/mL (0.36-3.74); Total Protein 7.7 g/dL (6.4-8.2); Triglyceride 89 mg/dL (<150)
[2022-09-27 17:10] LABS: Hemoglobin A1C 5.7 % (<5.7)
== END 2022-09-27 13:40 | disposition home or self-care (01) ==
LOC: NCHCN 13:39
PROVIDERS: Visit Provider Nurse Practitioner Family
DX: Z86.39 Personal history of other endocrine, nutritional and metabolic disease (principal); Z13.220 Encounter for screening for lipoid disorders; L08.9 Local infection of the skin and subcutaneous tissue, unspecified; Z83.49 Family history of other endocrine, nutritional and metabolic diseases
CPT/HCPCS: 80053; 80061; 83036; 84443; 85025

== ENCOUNTER 2022-11-08 11:10 | Emergency (ER) | payer MEDICARE, MEDICAID, SELFPAY ==
[2022-11-08 11:13] VITALS: BP 116/74; PULSE 92; RESP 17; TEMP 37.1; O2SAT 100
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
[2022-11-08 11:49] LABS: Abs Immature Grans 0.02 10^3/uL (0.0-0.06); Absolute Basophil Count 0.05 10^3/uL (0.0-0.2); Absolute Lymphocyte Count 3.37 10^3/uL (1.2-3.4); Absolute Monocyte Count 0.59 10^3/uL (0.1-0.8); Basophils % 0.6; Eosinophils % 1.3; HCT 41.1 % (40.0-50.0); HGB 13.9 g/dL (13.5-17.5); Immature Grans % 0.3; Lymphocytes % 42.5; MCH 29.7 pg (27.0-33.0); MCHC 33.8 % (32.0-36.0); MCV 88 fL (80-95); MPV 9.3 fL (8.0-11.0); Monocytes % 7.4; Neutrophils % 47.9; Platelet Count 231 10^3/uL (130-400); RBC 4.68 10^6/uL (4.36-5.78); RDW 12.9 % (11.8-14.1); RDW-SD 41.7 fL; WBC 7.93 10^3/uL (4.4-10.8)
[2022-11-08] MEDS: Haloperidol 5 MG/ML VIAL 2 MG IM/IV (11:51)
[2022-11-08] MEDS: LORazepam 2 MG/ML VIAL 1 MG IVP (11:51)
[2022-11-08 12:04] LABS: ETHANOL BLOOD < 3.0 mg/dL (<10)
[2022-11-08 12:05] VITALS: BP 134/80; PULSE 85; RESP 16; O2SAT 98
[2022-11-08 12:14] LABS: ALT 35 U/L (16-63); AST 24 U/L (15-37); Albumin 3.7 g/dL (3.4-5.0); Alkaline Phosphatase 70 U/L (46-116); BUN 20 mg/dL (7-18); Bilirubin, Total 0.7 mg/dL (0.2-1.0); CREATININE 1.1 mg/dL (0.70-1.30); Calcium 8.7 mg/dL (8.5-10.1); Chloride 104 mmol/L (98-107); Estimated GFR 83.84 (mL/min/1.73m2); Glucose 112 mg/dL (74-106); Potassium 3.6 mmol/L (3.5-5.1); Sodium 139 mmol/L (136-145); TSH (W/Ref FT4) 1.31 uIU/mL (0.36-3.74); Total Protein 7.3 g/dL (6.4-8.2)
[2022-11-08] MEDS: Omnipaque 350 MG/ML 500 ML BTL-Imaging package 100 ML IJ (13:04)
[2022-11-08] MEDS: Normal Saline - Diluent 50 ML VIAL IJ (13:05)
== END 2022-11-08 14:15 | disposition left against medical advice (07) ==
LOC: ER 11:32
PROVIDERS: Emergency Provider Emergency Medicine
DX: F20.9 Schizophrenia, unspecified (principal); Z53.21 Procedure and treatment not carried out due to patient leaving prior to being seen by health care provider; S00.03XA Contusion of scalp, initial encounter; Y09 Assault by unspecified means
CPT/HCPCS: 36415; 70498; 80053; 99284; 70450; 71045; 80320; 84443; 85025; J1630; J2060

== ENCOUNTER 2022-11-14 11:20 | Emergency (ER) | payer MEDICARE, MEDICAID, SELFPAY ==
[2022-11-14 11:24] VITALS: BP 120/76; PULSE 83; RESP 16; TEMP 37.4; O2SAT 98
--- NOTE | 2022-11-14 11:33 | W.ED.GENAD ---
Discharge Plan Discharge Details Chief Complaint: PsychEval Primary Care Provider: None,None ED Provider: Adina Hubbard Home Meds and New Rx's Prescriptions: No Action cyanocobalamin (vitamin B-12) 1,000 mcg capsule 1,000 mcg PO DAILY Patient Comments: not taking gabapentin 100 mg capsule 100 mg PO TID Patient Comments: not taking thiamine HCl (vitamin B1) 100 mg tablet 100 mg PO DAILY Patient Comments: does not take aspirin [Adult Aspirin Regimen] 81 mg tablet,delayed release (DR/EC) 81 mg PO DAILY Patient Comments: not taking multivitamin Tablet 1 tab PO DAILY Patient Comments: does not take vitamin E mixed 400 unit capsule PO Patient Comments: does not take aripiprazole [Abilify] 20 MG tablet 20 mg PO DAILY Patient Comments: states he doesn't need it-06/26-october take med tonight, pt states that he last took this yesterday 06/27/15 guaifenesin [Mucinex] 600 mg tablet extended release 12hr 600 mg PO Q12H PRNQty: 10 0RF Patient Comments: not taking Medical Decision Making 47-year-old male with reported past medical history of schizophrenia and psychosis presents to the ER with a chief complaint of requesting help for his drug problem. He denies any suicidal or homicidal ideations. He reports he has been dosed with cocaine he does admit to drinking alcohol prior to arrival. He appears cooperative at this time. He is having pressured speech and flight of ideas. He reports that he is only taking Abilify by injection. Work-up ordered including CBC CMP TSH Tylenol salicylate level, urinalysis urine drug screen. Ordered mental health eval, patient in line of sight of nurses station. Patient placed in paper scrubs and belongings collected. Patient in room continuously talking even no one in room. [place] stating I work for [employer], he needs my help, I'm going blind and I need reconstructive surgery on my wrist, my wrist is broken. Patient given Abilify 20mg. Mental health paged patient medically cleared. 1345: psych liason here at for patient eval. 1446: Spoke with [facility] and they report that patient may be a danger to himself and others and will place him on a hold, as the patient cannot be safely discharged in the current mental state he is in. Myself and MH will fill out EE paperwork. Sitter at BS, Lorazepam and Haldol PO ordered as patient is beginning to become agitated. 1458: EE paperwork filled out, patient refusing Lorazepam and Haldol however, he is redirectable at this time. Care to be handed off to oncoming provider Xavier Alejo, FOZIA pending second certification and inpatient placement. Patient is a EE'd at this time. Medical Records Medical records reviewed: Yes I reviewed the patient's medical records. Lab Data Lab results reviewed: Yes I reviewed the patient's lab results. Labs: Laboratory Tests Range/Units 11/14/22 11/14/22 11/14/22 11:32 11:56 11:56 WBC (4.4-10.8) 10^3/uL RBC (4.36-5.78) 10^6/uL Hgb (13.5-17.5) g/dL Hct (40.0-50.0) % MCV (80-95) fL MCH (27.0-33.0) pg MCHC (32.0-36.0) % RDW (11.8-14.1) % Plt Count (130-400) 10^3/uL MPV (8.0-11.0) fL Immature Gran % Neutrophils % Lymphocytes % Monocytes % Eosinophils % Basophils % Nucleated RBC % (0.0-0.3) % Absolute Neutrophils (1.2-6.7) 10^3/uL Absolute Lymphocytes (1.2-3.4) 10^3/uL Absolute Monocytes (0.1-0.8) 10^3/uL Absolute Eosinophils (0.0-0.7) 10^3/uL Absolute Basophils (0.0-0.2) 10^3/uL Sodium (136-145) mmol/L Potassium (3.5-5.1) mmol/L Chloride (98-107) mmol/L Carbon Dioxide (21.0-32.0) mmol/L Anion Gap (3-11) mmol/L BUN (7-18) mg/dL Creatinine (0.70-1.30) mg/dL Est GFR (CKD-EPI 2020) (mL/min/1.73m2) Glucose (74-106) mg/dL Calcium (8.5-10.1) mg/dL Total Bilirubin (0.2-1.0) mg/dL AST (15-37) U/L ALT (16-63) U/L Alkaline Phosphatase (46-116) U/L Total Protein (6.4-8.2) g/dL Albumin (3.4-5.0) g/dL TSH (0.36-3.74) uIU/mL Urine Color (Yellow) Yellow Urine Clarity (Clear) Clear Urine pH (5-8) 5.0 Ur Specific [place] (1.005-1.025) 1.025 Urine Protein (Negative) mg/dL Negative Urine Ketones (Negative) mg/dL Negative Urine Blood (Negative) Negative Urine Nitrite (Negative) Negative Urine Bilirubin (Negative) Negative Urine Urobilinogen (Up to 0.2) mg/dL 0.2 Ur Leukocyte Esterase (Negative) Negative Urine Glucose (Negative) mg/dL Negative Salicylates (<2.8) mg/dL Urine Opiates Screen (Negative) Negative Urine Methadone Screen (Negative) Negative Acetaminophen (10-30) ug/mL Ur Barbiturates Screen (Negative) Negative Ur Tricyclics Screen (Negative) Negative Ur Amphetamines Screen (Negative) Negative U Benzodiazepines Scrn (Negative) Negative Urine Cocaine Screen (Negative) Negative Ur THC Screen (Negative) Positive A Ethyl Alcohol Cancelled Range/Units 11/14/22 11/14/22 11/14/22 12:10 12:10 12:10 WBC (4.4-10.8) 10^3/uL 7.68 RBC (4.36-5.78) 10^6/uL 4.81 Hgb (13.5-17.5) g/dL 14.5 Hct (40.0-50.0) % 41.4 MCV (80-95) fL 86 MCH (27.0-33.0) pg 30.1 MCHC (32.0-36.0) % 35.0 RDW (11.8-14.1) % 12.9 Plt Count (130-400) 10^3/uL 190 MPV (8.0-11.0) fL 9.3 Immature Gran % 0.3 Neutrophils % 57.4 Lymphocytes % 33.5 Monocytes % 7.0 Eosinophils % 1.3 Basophils % 0.5 Nucleated RBC % (0.0-0.3) % 0.0 Absolute Neutrophils (1.2-6.7) 10^3/uL 4.41 Absolute Lymphocytes (1.2-3.4) 10^3/uL 2.57 Absolute Monocytes (0.1-0.8) 10^3/uL 0.54 Absolute Eosinophils (0.0-0.7) 10^3/uL 0.10 Absolute Basophils (0.0-0.2) 10^3/uL 0.04 Sodium (136-145) mmol/L 136 Potassium (3.5-5.1) mmol/L 3.9 Chloride (98-107) mmol/L 107 Carbon Dioxide (21.0-32.0) mmol/L 25.5 Anion Gap (3-11) mmol/L 3.5 BUN (7-18) mg/dL 21 H Creatinine (0.70-1.30) mg/dL 1.1 Est GFR (CKD-EPI 2020) (mL/min/1.73m2) 83.84 Glucose (74-106) mg/dL 110 H Calcium (8.5-10.1) mg/dL 8.6 Total Bilirubin (0.2-1.0) mg/dL 0.8 AST (15-37) U/L 18 ALT (16-63) U/L 33 Alkaline Phosphatase (46-116) U/L 70 Total Protein (6.4-8.2) g/dL 7.5 Albumin (3.4-5.0) g/dL 3.9 TSH (0.36-3.74) uIU/mL 1.44 Urine Color (Yellow) Urine Clarity (Clear) Urine pH (5-8) Ur Specific [place] (1.005-1.025) Urine Protein (Negative) mg/dL Urine Ketones (Negative) mg/dL Urine Blood (Negative) Urine Nitrite (Negative) Urine Bilirubin (Negative) Urine Urobilinogen (Up to 0.2) mg/dL Ur Leukocyte Esterase (Negative) Urine Glucose (Negative) mg/dL Salicylates (<2.8) mg/dL < 2.8 Urine Opiates Screen (Negative) Urine Methadone Screen (Negative) Acetaminophen (10-30) ug/mL < 2 Ur Barbiturates Screen (Negative) Ur Tricyclics Screen (Negative) Ur Amphetamines Screen (Negative) U Benzodiazepines Scrn (Negative) Urine Cocaine Screen (Negative) Ur THC Screen (Negative) Ethyl Alcohol < 3.0 HPI General Mode of arrival: ambulatory. Date/Time Provider Initiated Documentation: 11/14/22 11:22. Limitations to Documentation: altered mental status. Information obtained by: patient, RN notes reviewed and old records reviewed. HPI Narrative: 47-year-old male with reported past medical history of schizophrenia and psychosis presents to the ER with a chief complaint of requesting help for his drug problem. He denies any suicidal or homicidal ideations. He reports he has been dosed with cocaine he does admit to drinking alcohol prior to arrival. He appears cooperative at this time. He is having pressured speech and flight of ideas. He reports that he is only taking Abilify by injection. Related Data Home Medications Medication Instructions Recorded Confirmed aripiprazole 20 mg tablet (Abilify) 20 mg PO DAILY 10/27/12 08/09/22 aspirin 81 mg tablet,delayed 81 mg PO DAILY 04/24/22 08/13/22 release (Adult Aspirin Regimen) cyanocobalamin (vitamin B-12) 1,000 mcg PO DAILY 04/24/22 08/13/22 1,000 mcg capsule gabapentin 100 mg capsule 100 mg PO TID 04/24/22 08/13/22 multivitamin 1 tab PO DAILY 04/24/22 08/13/22 thiamine HCl (vitamin B1) 100 mg 100 mg PO DAILY 04/24/22 08/13/22 tablet vitamin E mixed 400 unit capsule unit PO 04/24/22 guaifenesin 600 mg tablet, 600 mg PO Q12H PRN #10 tabs 05/20/22 08/13/22 extended release 12 hr (Mucinex) Previous Rx's Medication Instructions Recorded guaifenesin 600 mg tablet, 600 mg PO Q12H PRN #10 tabs 05/20/22 extended release 12 hr (Mucinex) Allergies Allergy/AdvReac Type Severity Reaction Status Date / Time bee venom protein (honey bee) Allergy Verified 11/14/22 11:27 naproxen Allergy Verified 11/14/22 11:27 prednisone Allergy Verified 11/14/22 11:27 shrimp Allergy Verified 11/14/22 11:27 healy milk AdvReac Uncoded 11/14/22 11:27 General Stated Complaint: PsychEval ARNAV: 2 Review of Systems All systems reviewed & are unremarkable except as noted in HPI and below Neurologic Neurologic: Reports behavioral changes Psychiatric Psychiatric: Reports as per HPI, Reports behavioral changes and Reports change in appetite PFSH All Active Problems Psychosis (Acute) Psychiatric diagnosis deferred (Acute) Medical History Depression Schizophrenia Surgical History H/O thumb surgery Social History Smoking/Tobacco Use Status: Current every day Tobacco Type: cigarettes Smoking risk assessment performed?: Yes Alcohol Intake: current Alcohol type: hard liquor Drug use: Binges Substance use type: marijuana and prescription drug Do you feel safe at home: Yes Do you feel safe in your relationship?: Yes Exam Narrative Exam Narrative: Constitutional: Alert and oriented x3. Appears stated age. Normal body habitus. Head: Normocephalic, no trauma. Eyes: Pupils PERRL, Red reflex noted, EOM's intact. Eyelids symmetrical without lesions, discharge, or swelling. ENT: Bilateral TM's WNL, External ear normal to inspection, no mastoid TTP, swelling, or erythema, Nasal turbinates WNL, no nasal discharge. Normal dentition, Posterior pharynx WNL, no exudate. Chest: RRR, Normal S1, S2, distal pulses intact. Resp: Lungs clear to auscultation bilaterally, no wheezes, rales, or rhonchi. Abdomen: Soft, non-distended, Normoactive bowel sounds all 4 quads. Musculoskeletal: Normal gait, 5/5 strength to all four extremities. Skin: Feet macerated. Capillary refill less than 2 sec. Neurologic: Cranial nerves II-XII intact. Alert and oriented x 3. Motor: No deficits noted. Sensory: Intact bilaterally all 4 extremities. Reflexes: DTR's intact bilaterally.. Hematologic/Lymphatic: No ecchymosis, no lymphadenopathy. Psych Appearance: disheveled Speech and Movement: pressured speech and restless Attitude: cooperative Thought Process: flight of ideas Thought Content: no homicidality and suicidality Insight: poor Judgment: poor Course Vital Signs Vital signs: Vital Signs Temperature 37.4 C 06/14/23 11:24 Pulse 83 11/14/22 11:24 Respiratory Rate 16 11/14/22 11:24 Blood Pressure 120/76 11/14/22 11:24 Pulse Oximetry 98 11/14/22 11:24 Temperature 37.4 C 11/14/22 11:24 Temperature Source Oral 11/14/22 11:24 Pulse 83 11/14/22 11:24 Respiratory Rate 16 11/14/22 11:24 Respiratory Effort Normal 11/14/22 11:27 Blood Pressure 120/76 11/14/22 11:24 Blood Pressure Position Sitting 11/14/22 11:24 Pulse Oximetry 98 11/14/22 11:24 Oxygen Delivery Method Room Air 11/14/22 11:24 Oxygen Flow Rate 0 11/14/22 11:24 Pain Level 0 11/14/22 11:24 Sign Out Sign Out Data: Sign Out Comment: EE'd hx of schizophrenia. Acutely psychotic and delusional. Pressured speech and flight of ideas. Received Abilify 20mg PO. Sitter at . Last updated by Adina Hubbard NP at 11/14/22 15:31 PAWSS Have you Been Recently Intoxicated or Drunk Within the Last 30 days?: Yes Have you Ever Experienced Previous Episodes of Alcohol Withdrawal?: Yes Have you ever Experienced Withdrawal Seizures?: No Have you ever Experienced Delirium Tremens(DT)s?: No Have you ever undergone Alcohol Rehabilitation Treatment (i.e, inpt ot outpatient treatment programs)?: Yes Have you ever Experienced Blackouts?: Yes Have you ever Combined Alcohol with other Downers within the last 90 days?: Yes Have you ever Combined Alcohol with any other Substance of Abuse during the last 90 days?: Yes Result: 6
[2022-11-14 12:14] LABS: Bilirubin Negative (Negative); Blood Negative (Negative); Clarity Clear (Clear); Glucose Negative (Negative); Ketones Negative (Negative); Leukocyte Esterase Negative (Negative); Nitrite Negative (Negative); Specific Gravity 1.025 (1.005-1.025); Urobilinogen 0.2 mg/dL (Up to 0.2)
[2022-11-14 12:21] LABS: Abs Immature Grans 0.02 10^3/uL (0.0-0.06); Absolute Basophil Count 0.04 10^3/uL (0.0-0.2); Absolute Lymphocyte Count 2.57 10^3/uL (1.2-3.4); Absolute Monocyte Count 0.54 10^3/uL (0.1-0.8); Absolute Neutrophil Count 4.41 10^3/uL (1.2-6.7); Basophils % 0.5; Eosinophils % 1.3; HCT 41.4 % (40.0-50.0); HGB 14.5 g/dL (13.5-17.5); Immature Grans % 0.3; Lymphocytes % 33.5; MCH 30.1 pg (27.0-33.0); MCV 86 fL (80-95); MPV 9.3 fL (8.0-11.0); Neutrophils % 57.4; Platelet Count 190 10^3/uL (130-400); RBC 4.81 10^6/uL (4.36-5.78); RDW 12.9 % (11.8-14.1); RDW-SD 40.4 fL; WBC 7.68 10^3/uL (4.4-10.8)
[2022-11-14 12:23] LABS: *AMPHETAMINES SCREEN URINE Negative (Negative); *BARBITURATES SCREEN URINE Negative (Negative); *BENZODIAZEPINES SCREEN URINE Negative (Negative); Cannabinoids THC Positive (Negative); Cocaine Screen,Urine Negative (Negative); METHADONE URINE SCREEN Negative (Negative); OPIATES URINE SCREEN Negative (Negative)
[2022-11-14 12:25] LABS: Tricyclic Antidepressants Negative (Negative)
[2022-11-14] MEDS: Nicotine 14 MG/24 HR PATCH TD (12:37)
[2022-11-14] MEDS: ARIPiprazole 5 MG TAB 20 MG PO (12:37)
[2022-11-14 12:45] LABS: Salicylate < 2.8 mg/dL (<2.8)
[2022-11-14 12:46] LABS: ALT 33 U/L (16-63); AST 18 U/L (15-37); Albumin 3.9 g/dL (3.4-5.0); Alkaline Phosphatase 70 U/L (46-116); Anion Gap 3.5 mmol/L (3-11); BUN 21 mg/dL (7-18); Bilirubin, Total 0.8 mg/dL (0.2-1.0); CO2 25.5 mmol/L (21.0-32.0); CREATININE 1.1 mg/dL (0.70-1.30); Calcium 8.6 mg/dL (8.5-10.1); Chloride 107 mmol/L (98-107); Estimated GFR 83.84 (mL/min/1.73m2); Glucose 110 mg/dL (74-106); Potassium 3.9 mmol/L (3.5-5.1); Sodium 136 mmol/L (136-145); TSH (W/Ref FT4) 1.44 uIU/mL (0.36-3.74); Total Protein 7.5 g/dL (6.4-8.2)
[2022-11-14 12:47] LABS: ETHANOL BLOOD < 3.0 mg/dL (<10)
[2022-11-14 12:49] LABS: Acetaminophen < 2 ug/mL (10-30)
--- NOTE | 2022-11-14 14:59 | CMSP_ITS ---
Date of service: 11/14/22 Time of Service: 14:59 Care Management Safety Plan Status Status: Involuntary Reason for Wait Reason for Wait: Other (Awaiting Second Certification by Psychiatrist) Safety Plan Safety Plan: CHIEF COMPLAINT: Jose Alfredo voluntarily comes to the ED to seek help with his drug problem. He denies SI/HI and denies having any mental health issues. A review of his chart reveals he has a history of psychosis and schizophrenia. Jose Alfredo refuses medication while in the ED and presents as delusional with pressured speech and flight of ideas. He is assessed by Coni of [facility] and placed on involuntary status. He will meet with a [facility] Psychiatrist at some point within the next 24 hours for a 2nd Certification by Psychiatrist. If the involuntary status is upheld, Jose Alfredo will remain at [facility] and will be reassessed twice daily by [facility] until placement for mood stabilization is secured for him. CM will continue to follow. INVOLUNTARY FOR INPATIENT PSYCHIATRIC STABILIZATION. Safety plan has been established to meet the needs of the patient, and consideration of the care team, to adhere to patient goals, identify restrictions based on behavioral status, address nutrition, and determine allowed personal belongings, tools for hygiene and personal care. Determine leve l of activity including ambulation, level of supervision, visitors, and determine privileges based on behaviors and level of engagement by pt. SAFETY PLAN: 1. Will remain on SI/HI precautions. In Paper Clothes 2. Will remain in room under direct supervision of one-on-one staff at all times provided by [employer], CONFIGURATION MANAGEMENT MANAGER, PR MANAGER director investment banking. 3. May have paper cups, plates, finger foods as well as a cardboard spoon to eat meals with. 4. Follow [facility] Management of the Admitted Behavioral Health Patient policy. 5. Comfort bath system only; shower permitted at RN discretion. 6. No personal belongings 7. Visitors: Limited to AA sponsor. 8. Activities: Soft cart items, music tablet, television and other activities at RN discretion. 9. Bathroom privileges with supervision 10. Phone: Limited to legal contacts via [facility] phone at RN discretion. 11. Due to INVOLUNTARY status, patient is being held at [facility] by the Department of Mental Health ([facility]) until 2nd certification by [facility] Psychiatrist can be performed (within 24 hours). Staff will provide de-escalation support (CPI) as needed. If patient wishes to leave [facility], staff will contact [facility] Crisis Screener ([phone]) and On-Call Chief Engineer Waterworks ([phone]) as soon as possible. In the event of elopement, notify [facility] Police ([phone]). Patient is currently involuntarily at [facility]. [facility] Frontline Nurse Sexual Assault will continue seeking placement. Please contact the [place] Worker Chief Engineer Waterworks ([phone]) for any needed changes to Safety Plan. Safety plan has been provided to interdepartmental care team. Patient will be transported by manager patient at time of discharge.
--- NOTE | 2022-11-14 14:59 | PDOC.CMSAFE ---
Date of service: 11/14/22 Time of Service: 14:59 Care Management Safety Plan Status Status: Involuntary Reason for Wait Reason for Wait: Other (Awaiting Second Certification by Psychiatrist) Safety Plan Safety Plan: CHIEF COMPLAINT: Jose Alfredo voluntarily comes to the ED to seek help with his drug problem. He denies SI/HI and denies having any mental health issues. A review of his chart reveals he has a history of psychosis and schizophrenia. Jose Alfredo refuses medication while in the ED and presents as delusional with pressured speech and flight of ideas. He is assessed by Coni of [facility] and placed on involuntary status. He will meet with a [facility] Psychiatrist at some point within the next 24 hours for a 2nd Certification by Psychiatrist. If the involuntary status is upheld, Jose Alfredo will remain at [facility] and will be reassessed twice daily by [facility] until placement for mood stabilization is secured for him. CM will continue to follow. INVOLUNTARY FOR INPATIENT PSYCHIATRIC STABILIZATION. Safety plan has been established to meet the needs of the patient, and consideration of the care team, to adhere to patient goals, identify restrictions based on behavioral status, address nutrition, and determine allowed personal belongings, tools for hygiene and personal care. Determine level of activity including ambulation, level of supervision, visitors, and determine privileges based on behaviors and level of engagement by pt. SAFETY PLAN: 1. Will remain on SI/HI precautions. In Paper Clothes 2. Will remain in room under direct supervision of one-on-one staff at all times provided by CPSO, DIRECTOR OF RETENTION, OCCUPATIONAL THERAPIST'S ASSISTANT calibrator barometers. 3. May have paper cups, plates, finger foods as well as a cardboard spoon to eat meals with. 4. Follow [facility] Management of the Admitted Behavioral Health Patient policy. 5. Comfort bath system only; shower permitted at RN discretion. 6. No personal belongings 7. Visitors: Limited to AA sponsor. 8. Activities: Soft cart items, music tablet, television and other activities at RN discretion. 9. Bathroom privileges with supervision 10. Phone: Limited to legal contacts via [facility] hospital phone at RN discretion. 11. Due to INVOLUNTARY status, patient is being held at [facility] by the Department of Mental Health ([facility]) until 2nd certification by [facility] Psychiatrist can be performed (within 24 hours). Staff will provide de-escalation support (CPI) as needed. If patient wishes to leave [facility], staff will contact [facility] Crisis Screener ([phone]) and On-Call Export Manager ([phone]) as soon as possible. In the event of elopement, notify [facility] Police ([phone]). Patient is currently involuntarily at [facility]. [facility] Frontline Beet Worker will continue seeking placement. Please contact the [employer]of[employer] Powder Mixer Export Manager ([phone]) for any needed changes to Safety Plan. Safety plan has been provided to interdepartmental care team. Patient will be transported by community cultural development officer at time of discharge.
--- NOTE | 2022-11-14 15:39 | ED.PROG_ITS ---
Date of service: 11/14/22 Time of Service: 15:45 Medical Decision Making 1540-patient signed out to me pending psychiatric bed availability. Patient is EE'd for acute delusions. Patient has history of psychosis and schizophrenia and has been off his medication. Did receive report that patient did take Abilify earlier and so far has been cooperative in the emergency department. At time of signout patient resting comfortably in room with no stated complaint. We will continue to monitor. Patient seen and screened by state psychiatrist and was not deemed necessary for involuntary admission. Patient not seeking voluntary admission at this time and safety plan was established by [facility]. Patient discharged with understanding to return for any new or worsening symptoms. After discussion of diagnosis and plan of care patient has no further needs, questions, or concerns and states clear understanding to return to the emergency department for any worsening symptoms. This documentation was generated using [employer] system, please disregard any oddities of phrase or misspellings. Exam Const General: cooperative, no acute distress and not ill appearing Orientation: alert and awake HENMT Mouth: moist mucous membranes Resp Effort & Inspection: normal respiratory effort, able to speak in complete sentences and no respiratory distress Neuro General: patient alert, patient awake, moves all extremities and no focal motor deficits Psych Appearance: disheveled Speech and Movement: restless Affect: animated Attitude: cooperative Thought Process: flight of ideas and loose association Thought Content: delusions, no hallucinations, no homicidality and suicidality Sign Out Sign Out Data: Sign Out Comment: EE'd hx of schizophrenia. Acutely psychotic and delusional. Pressured speech and flight of ideas. Received Abilify 20mg PO. Sitter at . Last updated by Adina Hubbard NP at 11/14/22 15:31 Discharge Plan Disposition Patient Disposition: Home Condition: Stable Discharge Details Clinical Impression: Psychosis Primary Care Provider: None,None ED Provider: Jam Alejo Home Meds and New Rx's Prescriptions: Continued cyanocobalamin (vitamin B-12) 1,000 mcg capsule 1,000 mcg PO DAILY Patient Comments: not taking gabapentin 100 mg capsule 100 mg PO TID Patient Comments: not taking thiamine HCl (vitamin B1) 100 mg tablet 100 mg PO DAILY Patient Comments: does not take aspirin [Adult Aspirin Regimen] 81 mg tablet,delayed release (DR/EC) 81 mg PO DAILY Patient Comments: not taking multivitamin Tablet 1 tab PO DAILY Patient Comments: does not take vitamin E mixed 400 unit capsule PO Patient Comments: does not take aripiprazole [Abilify] 20 MG tablet 20 mg PO DAILY Patient Comments: states he doesn't need it-06/26-october take med tonight, pt states that he last took this yesterday 06/27/15 guaifenesin [Mucinex] 600 mg tablet extended release 12hr 600 mg PO Q12H PRNQty: 10 0RF Patient Comments: not taking Discharge Instructions Instructions: Psychotic Disorder (ED) Additional Instructions: Please follow the safety plan that was established by [facility]. If you have any new or worsening symptoms or change your mind about seeking voluntary admission for your psychiatric disorder please return to the emergency department for reassessment. Otherwise please take your medications as prescribed and follow-up with primary care provider Referrals: [facility] [Outside]
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
--- NOTE | 2022-11-15 09:41 | NUR.NOTE ---
Nursing Note: Accessed pt chart to determine disposition of patient for [facility]. They were told that he was discharged.
== END 2022-11-14 19:52 | disposition home or self-care (01) ==
PROVIDERS: Registered Nurse Emergency; Emergency Provider Nurse Practitioner Family
DX: F20.9 Schizophrenia, unspecified (principal); Z79.899 Other long term (current) drug therapy
CPT/HCPCS: 80053; 80307; 99283; 80320; 80329; 81003; 84443; 85025; 99284

== ENCOUNTER 2022-11-14 22:54 | Emergency (ER) | payer MEDICARE, MEDICAID, SELFPAY ==
[2022-11-14 23:00] VITALS: BP 106/96; PULSE 78; RESP 16; TEMP 36.4; O2SAT 98
--- NOTE | 2022-11-14 23:20 | W.ED.GENAD ---
Discharge Plan Disposition Condition: Stable Discharge Details Chief Complaint: PsychEval Clinical Impression: Schizophrenia, chronic condition Primary Care Provider: None,None ED Provider: Sheeba Mehta Home Meds and New Rx's Prescriptions: Continued cyanocobalamin (vitamin B-12) 1,000 mcg capsule 1,000 mcg PO DAILY Patient Comments: not taking gabapentin 100 mg capsule 100 mg PO TID Patient Comments: not taking thiamine HCl (vitamin B1) 100 mg tablet 100 mg PO DAILY Patient Comments: does not take aspirin [Adult Aspirin Regimen] 81 mg tablet,delayed release (DR/EC) 81 mg PO DAILY Patient Comments: not taking multivitamin Tablet 1 tab PO DAILY Patient Comments: does not take vitamin E mixed 400 unit capsule PO Patient Comments: does not take aripiprazole [Abilify] 20 MG tablet 20 mg PO DAILY Patient Comments: states he doesn't need it-06/26-october take med tonight, pt states that he last took this yesterday 06/27/15 guaifenesin [Mucinex] 600 mg tablet extended release 12hr 600 mg PO Q12H PRNQty: 10 0RF Patient Comments: not taking HPI General Date/Time Provider Initiated Documentation: 11/14/22 22:55. HPI Narrative: This 47-year-old male patient was seen earlier today and actually evaluated by the formerly [facility] psychiatrist to see if he could be EE'd. The patient reportedly has a history of schizophrenia but was not and is not suicidal or homicidal; he was not deemed to be comitable. The patient states that he was sent here earlier in the day for evaluation to be cleared for rehab (reportedly he was sent for eval of psychosis but lied too). He is talking about [facility]. He says that if we do not send him there now he will use cocaine and heroin. The patient states that when he was here 3 days ago we gave him Haldol against his will. While talking about this he got very agitated. I explained that it was unlikely that we could get him to [facility] but that he could call. I asked him if he wanted a list of rehab facilities and he said that would be helpful but then said he was leaving as we could not help him. He asked for an alcohol swab and bandaid for a blister on his L little toe and was given this but then did not want it. Related Data Home Medications Medication Instructions Recorded Confirmed aripiprazole 20 mg tablet (Abilify) 20 mg PO DAILY 10/27/12 08/09/22 aspirin 81 mg tablet,delayed 81 mg PO DAILY 04/24/22 08/13/22 release (Adult Aspirin Regimen) cyanocobalamin (vitamin B-12) 1,000 mcg PO DAILY 04/24/22 08/13/22 1,000 mcg capsule gabapentin 100 mg capsule 100 mg PO TID 04/24/22 08/13/22 multivitamin 1 tab PO DAILY 04/24/22 08/13/22 thiamine HCl (vitamin B1) 100 mg 100 mg PO DAILY 04/24/22 08/13/22 tablet vitamin E mixed 400 unit capsule unit PO 04/24/22 guaifenesin 600 mg tablet, 600 mg PO Q12H PRN #10 tabs 05/20/22 08/13/22 extended release 12 hr (Mucinex) Previous Rx's Medication Instructions Recorded guaifenesin 600 mg tablet, 600 mg PO Q12H PRN #10 tabs 05/20/22 extended release 12 hr (Mucinex) Allergies Allergy/AdvReac Type Severity Reaction Status Date / Time bee venom protein (honey bee) Allergy Verified 11/14/22 11:27 naproxen Allergy Verified 11/14/22 11:27 prednisone Allergy Verified 11/14/22 11:27 shrimp Allergy Verified 11/14/22 11:27 healy milk AdvReac Uncoded 11/14/22 11:27 General Stated Complaint: PsychEval ARNAV: 5 Review of Systems Constitutional Constitutional: Denies chills, Denies fever(s), Denies headache(s) and Denies weakness Eyes Eyes: Denies diplopia and Reports other (no redness) ENT Ears, Nose, Mouth, and Throat: Denies otalgia, Denies headache(s), Denies nasal congestion, Denies nasal discharge, Denies neck pain and Denies sore throat Cardiovascular Cardiovascular: Denies chest pain, Denies palpitations and Denies dyspnea Respiratory Respiratory: Denies cough and Denies dyspnea Gastrointestinal Gastrointestinal: Denies abdominal pain, Denies diarrhea, Denies nausea and Denies vomiting Genitourinary Genitourinary: Denies difficulty urinating and Denies dysuria Musculoskeletal Musculoskeletal: Denies myalgias, Denies muscle weakness, Denies neck pain, Denies numbness and Reports other (edema) Integumentary/Breasts Skin/Breast: Denies change in pigmentation and Denies rash Neurologic Neurologic: Denies headache(s), Denies numbness and Denies weakness Endocrine Endocrine: Denies palpitations PFSH All Active Problems (Updated 11/14/22 @ 23:30 by Sheeba Mehta MD) Psychosis (Acute) Schizophrenia, chronic condition (Acute) Psychiatric diagnosis deferred (Acute) Medical History Depression Schizophrenia Surgical History H/O thumb surgery Social History Smoking/Tobacco Use Status: Current every day Tobacco Type: cigarettes Smoking risk assessment performed?: Yes Alcohol Intake: current Alcohol type: hard liquor Drug use: Binges Substance use type: marijuana and prescription drug Do you feel safe at home: Yes Do you feel safe in your relationship?: Yes Exam Const General: disheveled and other (unkept, agitated; refused physical exam) Eyes Conjunctivae: conjunctivae normal Neck Neck: other (supple) Resp Effort & Inspection: normal respiratory effort and able to speak in complete sentences Skin General skin exam: other (blister on L little toe is not red or infected appearing) Neuro General: patient alert, patient awake and other (SHIELDS, nl gait, mildly AMS) Extrem General: full ROM and normal gait Course Vital Signs Vital signs: Vital Signs Temperature 36.4 C 11/14/22 23:00 Pulse 78 11/14/22 23:00 Respiratory Rate 16 11/14/22 23:00 Blood Pressure 106/96 H 11/14/22 23:00 Pulse Oximetry 98 11/14/22 23:00 Temperature 36.4 C 11/14/22 23:00 Pulse 78 11/14/22 23:00 Respiratory Rate 16 11/14/22 23:00 Respiratory Effort Normal 11/14/22 23:07 Blood Pressure 106/96 H 11/14/22 23:00 Pulse Oximetry 98 11/14/22 23:00 Oxygen Delivery Method Room Air 11/14/22 23:00 Oxygen Flow Rate 0 11/14/22 23:00 Pain Level 7 11/14/22 23:00 PAWSS Have you Been Recently Intoxicated or Drunk Within the Last 30 days?: Unable to Obtain Have you Ever Experienced Previous Episodes of Alcohol Withdrawal?: Unable to Obtain Have you ever Experienced Withdrawal Seizures?: Unable to Obtain Have you ever Experienced Delirium Tremens(DT)s?: Unable to Obtain Have you ever undergone Alcohol Rehabilitation Treatment (i.e, inpt ot outpatient treatment programs)?: Unable to Obtain Have you ever Experienced Blackouts?: Unable to Obtain Have you ever Combined Alcohol with other Downers within the last 90 days?: Unable to Obtain Have you ever Combined Alcohol with any other Substance of Abuse during the last 90 days?: Unable to Obtain Positive Blood Alcohol level on Presentation? [PCS.BAL]: Unable to Obtain Evidence of Increased Autonomic Activity (i.e. HR>120, tremor, sweating, agitation, nausea)?: Unable to Obtain
== END 2022-11-14 23:21 | disposition home or self-care (01) ==
PROVIDERS: Emergency Provider Emergency Medicine
DX: F20.9 Schizophrenia, unspecified (principal)
CPT/HCPCS: 99281; 99282

== ENCOUNTER 2022-11-18 18:41 | Emergency (ER) | payer MEDICARE, MEDICAID, SELFPAY ==
[2022-11-18 18:47] VITALS: BP 106/73; PULSE 98; RESP 16; TEMP 36.3; O2SAT 100
--- NOTE | 2022-11-18 21:45 | DI.RAD_ITS ---
Exam(s) XR FOOT LT COMPLETE EXAM: XR FOOT LT COMPLETE CLINICAL HISTORY: left lateral foot pain. TECHNIQUE: 2D digital imaging was performed. Three views. COMPARISON: No exams were available for comparison FINDINGS: BONES: No acute fracture is present. No bony destructive lesion is seen. JOINTS: No dislocation present. SOFT TISSUE: Lateral soft tissue swelling. No abnormal gas collection. IMPRESSION: Soft tissue swelling. No fracture identified. DATA REPOSITORY: RADIATION DOSE DELIVERED:
--- NOTE | 2022-11-18 22:29 | ED.GENADUL_ITS ---
Discharge Plan Disposition Patient Disposition: Home Discharge Details Clinical Impression: Injury of toe Primary Care Provider: None,None ED Provider: Almita Shelton Home Meds and New Rx's Prescriptions: Continued cyanocobalamin (vitamin B-12) 1,000 mcg capsule 1,000 mcg PO DAILY Patient Comments: not taking gabapentin 100 mg capsule 100 mg PO TID Patient Comments: not taking thiamine HCl (vitamin B1) 100 mg tablet 100 mg PO DAILY Patient Comments: does not take aspirin [Adult Aspirin Regimen] 81 mg tablet,delayed release (DR/EC) 81 mg PO DAILY Patient Comments: not taking multivitamin Tablet 1 tab PO DAILY Patient Comments: does not take vitamin E mixed 400 unit capsule PO Patient Comments: does not take aripiprazole [Abilify] 20 MG tablet 20 mg PO DAILY Patient Comments: states he doesn't need it-06/26-october take med tonight, pt states that he last took this yesterday 06/27/15 guaifenesin [Mucinex] 600 mg tablet extended release 12hr 600 mg PO Q12H PRNQty: 10 0RF Patient Comments: not taking Discharge Instructions Additional Instructions: Your toe does not show evidence of an obvious fracture, I have offered you a cast shoe which you have declined You may take ibuprofen and Tylenol as needed for pain You may return should you have new or worsening complaints Discharge Data Discharge Date/Time-TO BE ENTERED AT DEPARTURE: 11/18/22 22:56 Medical Decision Making Patient with mild tenderness and swelling to his left fifth digit, no tenderness to left foot or left ankle Patient is alert and oriented, he is ambulatory with steady gait He is making numerous complaints about being ignored , thinking we are all evil Patient made aware that his x-ray was negative for acute abnormality per radiology interpretation and my review HPI General Date/Time Provider Initiated Documentation: 11/18/22 19:54 . HPI Narrative: This 47-year-old gentleman with history of schizophrenia presents with report of left toe injury. He has dropped off by police for assessment at this facility. He states he was power walking when he accidentally hit his toe. Denies additional injuries. Related Data Home Medications Medication Instructions Recorded Confirmed aripiprazole 20 mg tablet (Abilify) 20 mg PO DAILY 10/27/12 11/18/22 aspirin 81 mg tablet,delayed 81 mg PO DAILY 04/24/22 11/18/22 release (Adult Aspirin Regimen) cyanocobalamin (vitamin B-12) 1,000 mcg PO DAILY 04/24/22 11/18/22 1,000 mcg capsule gabapentin 100 mg capsule 100 mg PO TID 04/24/22 11/18/22 multivitamin 1 tab PO DAILY 04/24/22 11/18/22 thiamine HCl (vitamin B1) 100 mg 100 mg PO DAILY 04/24/22 11/18/22 tablet vitamin E mixed 400 unit capsule unit PO 04/24/22 guaifenesin 600 mg tablet, 600 mg PO Q12H PRN #10 tabs 05/20/22 11/18/22 extended release 12 hr (Mucinex) Previous Rx's Medication Instructions Recorded guaifenesin 600 mg tablet, 600 mg PO Q12H PRN #10 tabs 05/20/22 extended release 12 hr (Mucinex) Allergies Allergy/AdvReac Type Severity Reaction Status Date / Time bee venom protein (honey bee) Allergy Verified 11/18/22 18:52 naproxen Allergy Verified 11/18/22 18:52 prednisone Allergy Verified 11/18/22 18:52 shrimp Allergy Verified 11/18/22 18:52 healy milk AdvReac Uncoded 11/18/22 18:52 General Stated Complaint: Orthopedic ARNAV: 4 PFSH All Active Problems (Updated 11/18/22 @ 22:33 by MICHELLE Kitchen) Psychosis (Acute) Schizophrenia, chronic condition (Acute) Injury of toe (Acute) Psychiatric diagnosis deferred (Acute) Medical History Depression Schizophrenia Surgical History H/O thumb surgery Social History Smoking/Tobacco Use Status: Current every day Tobacco Type: cigarettes Smoking risk assessment performed?: Yes Alcohol Intake: current Alcohol type: hard liquor Drug use: Binges Substance use type: marijuana and prescription drug Do you feel safe at home: Yes Do you feel safe in your relationship?: Yes Course Vital Signs Vital signs: Vital Signs Temperature 36.3 C L 11/18/22 18:47 Pulse 98 H 11/18/22 18:47 Respiratory Rate 16 11/18/22 18:47 Blood Pressure 106/73 11/18/22 18:47 Pulse Oximetry 100 11/18/22 18:47 Temperature 36.3 C L 11/18/22 18:47 Temperature Source Temporal Artery Scan 11/18/22 18:47 Pulse 98 H 11/18/22 18:47 Respiratory Rate 16 11/18/22 18:47 Respiratory Effort Normal 11/18/22 18:47 Blood Pressure 106/73 11/18/22 18:47 Blood Pressure Position Sitting 11/18/22 18:47 Pulse Oximetry 100 11/18/22 18:47 Oxygen Delivery Method Room Air 11/18/22 18:47 Oxygen Flow Rate 0 11/18/22 18:47 Pain Level 10 11/18/22 18:47
--- NOTE | 2022-11-19 00:05 | DI.VRAD_ITS ---
PROCEDURE INFORMATION: Exam: XR Left Foot Exam date and time: 11/18/2022 10:09 PM Age: 47 years old Clinical indication: Patient HX: Left lateral foot pain TECHNIQUE: Imaging protocol: Radiologic exam of the left foot. Views: 3 or more views. COMPARISON: No relevant prior studies available. FINDINGS: Bones/joints: No acute fracture identified. A heel spur is seen. Soft tissues: No unusual soft tissue calcifications. There is lateral soft tissue swelling, particularly at the 5th MTP joint. Possible plantar soft tissue swelling is also seen. If there is concern for an infectious process, CT scan or MRI is recommended. IMPRESSION: 1. No acute fracture is identified. It should be noted that acute fractures can be difficult to identify on initial radiographs. If symptoms persist or remain concerning, consider follow-up imaging in 7 days or alternative imaging modalities. 2. There is lateral soft tissue swelling, particularly at the 5th MTP joint. Possible plantar soft tissue swelling is also seen. If there is concern for an infectious process, a contrast-enhanced CT scan or MRI is recommended. Other findings/details as above. Dictated and Authenticated by: Mariajose Ta MD. Ordering:ALEIDA Recio MD
== END 2022-11-18 22:56 | disposition home or self-care (01) ==
PROVIDERS: Emergency Provider Physician Assistant
DX: S99.922A Unspecified injury of left foot, initial encounter (principal); Y99.8 Other external cause status; Y93.01 Activity, walking, marching and hiking
CPT/HCPCS: 99283; 73630

== ENCOUNTER 2022-12-08 18:44 | Emergency (ER) | payer MEDICARE, MEDICAID, SELFPAY ==
[2022-12-08 18:41] VITALS: BP 104/63; PULSE 85; RESP 18; TEMP 36.4; O2SAT 98
--- NOTE | 2022-12-08 19:07 | NUR.NOTE ---
Nursing Note: Patient left without being seen
== END 2022-12-08 21:04 | disposition left against medical advice (07) ==
LOC: ER 19:03
DX: Z53.21 Procedure and treatment not carried out due to patient leaving prior to being seen by health care provider (principal)

== ENCOUNTER 2022-12-08 20:07 | Emergency (ER) | payer MEDICARE, MEDICAID, SELFPAY ==
[2022-12-08 20:09] VITALS: BP 108/72; PULSE 82; RESP 16; TEMP 36.7; O2SAT 100
--- NOTE | 2022-12-08 22:20 | W.ED.GENAD ---
Discharge Plan Disposition Patient Disposition: Home Condition: Stable Discharge Details Clinical Impression: Chronic dental pain, Bee sting, Malingering Primary Care Provider: Unknown,Unknown ED Provider: Adina Hubbard Meds and New Rx's Prescriptions: New penicillin V potassium 500 mg tablet 500 mg PO BID 10 Days Qty: 20 0RF Rx Instructions: Take 1 tablet by mouth twice daily for 10 days No Action cyanocobalamin (vitamin B-12) 1,000 mcg capsule 1,000 mcg PO DAILY Patient Comments: not taking gabapentin 100 mg capsule 100 mg PO TID Patient Comments: not taking thiamine HCl (vitamin B1) 100 mg tablet 100 mg PO DAILY Patient Comments: does not take aspirin [Adult Aspirin Regimen] 81 mg tablet,delayed release (DR/EC) 81 mg PO DAILY Patient Comments: not taking multivitamin Tablet 1 tab PO DAILY Patient Comments: does not take vitamin E mixed 400 unit capsule PO Patient Comments: does not take aripiprazole [Abilify] 20 MG tablet 20 mg PO DAILY Patient Comments: states he doesn't need it-06/26-october take med tonight, pt states that he last took this yesterday 06/27/15 guaifenesin [Mucinex] 600 mg tablet extended release 12hr 600 mg PO Q12H PRNQty: 10 0RF Patient Comments: not taking Discharge Instructions Instructions: Insect Bite or Sting (ED), Toothache (ED) Additional Instructions: You are given antibiotics here in the emergency department. Please take them as directed with yogurt or a probiotic. You still need to follow-up with a dentist. Follow up with primary care provider in 3-5 days. Return to ED sooner if any worsening or concerns. Increase oral fluids. You may also follow-up with community connections. Medical Decision Making 47-year-old male presents initially by EMS for chief complaint of bee sting and allergic reaction. He then eloped from the department left without being seen and rechecked in. He is requesting penicillin and a ride for his poor dentition. He is a homeless male. He states that he is staying at the [facility]. He does appear sleepy. He denies any drugs or alcohol. Does have a past medical history of psychosis, schizophrenia. Patient is ambulatory in department without assistance. Patient given penicillin 500 mg here in the department and 4 tablets to go. We will attempt to call our CT to patient ride. However patient is ambulatory without assistance to be discharged from department. Patient given a ride with R CT. ambulatory without assistance department. Insert dragon HPI General Mode of arrival: EMS. Date/Time Provider Initiated Documentation: 12/08/22 22:16. Limitations to Documentation: no limitations. Information obtained by: patient, EMS, RN notes reviewed and old records reviewed. HPI Narrative: 47-year-old male presents initially by EMS for chief complaint of bee sting and allergic reaction. He then eloped from the department left without being seen and rechecked in. He is requesting penicillin and a ride for his poor dentition. He is a homeless male. He states that he is staying at the [facility]. He does appear sleepy. He denies any drugs or alcohol. Does have a past medical history of psychosis, schizophrenia. Patient is ambulatory in department without assistance. Related Data Home Medications Medication Instructions Recorded Confirmed aripiprazole 20 mg tablet (Abilify) 20 mg PO DAILY 10/27/12 11/18/22 aspirin 81 mg tablet,delayed 81 mg PO DAILY 04/24/22 11/18/22 release (Adult Aspirin Regimen) cyanocobalamin (vitamin B-12) 1,000 mcg PO DAILY 04/24/22 11/18/22 1,000 mcg capsule gabapentin 100 mg capsule 100 mg PO TID 04/24/22 11/18/22 multivitamin 1 tab PO DAILY 04/24/22 11/18/22 thiamine HCl (vitamin B1) 100 mg 100 mg PO DAILY 04/24/22 11/18/22 tablet vitamin E mixed 400 unit capsule unit PO 04/24/22 guaifenesin 600 mg tablet, 600 mg PO Q12H PRN #10 tabs 05/20/22 11/18/22 extended release 12 hr (Mucinex) penicillin V potassium 500 mg 500 mg PO BID 10 days #20 tabs 12/08/22 tablet Previous Rx's Medication Instructions Recorded guaifenesin 600 mg tablet, 600 mg PO Q12H PRN #10 tabs 05/20/22 extended release 12 hr (Mucinex) penicillin V potassium 500 mg 500 mg PO BID 10 days #20 tabs 12/08/22 tablet Allergies Allergy/AdvReac Type Severity Reaction Status Date / Time bee venom protein (honey bee) Allergy Verified 06/18/23 18:52 naproxen Allergy Verified 11/18/22 18:52 prednisone Allergy Verified 11/18/22 18:52 shrimp Allergy Verified 11/18/22 18:52 healy milk AdvReac Uncoded 11/18/22 18:52 General Stated Complaint: DentalOral ARNAV: 5 Review of Systems All systems reviewed & are unremarkable except as noted in HPI and below ENT Ears, Nose, Mouth, and Throat: Reports as per HPI, Reports dental pain and Reports mouth pain PFSH All Active Problems (Updated 12/09/22 @ 00:04 by JANELL ELDRIDGE) Schizophrenia, chronic condition (Acute) Injury of toe (Acute) Chronic dental pain (Acute) Bee sting (Acute) Malingering (Acute) Psychiatric diagnosis deferred (Acute) Medical History Depression Schizophrenia Surgical History H/O thumb surgery Social History Smoking/Tobacco Use Status: Current every day Tobacco Type: cigarettes Smoking risk assessment performed?: Yes Alcohol Intake: current Alcohol type: hard liquor Drug use: Binges Substance use type: marijuana and prescription drug Housing: homeless Do you feel safe at home: Yes Do you feel safe in your relationship?: Yes Exam HENMT Head: normal to inspection, no palpable skull fracture, normocephalic and atraumatic Teeth and gingiva: poor dentition and other (Multiple eroded teeth no obvious areas of fluctuance or abscess) Throat: posterior oropharynx normal, tonsils normal and uvula midline Chest Chest: normal inspection of the chest Resp Effort & Inspection: normal respiratory effort and able to speak in complete sentences Auscultation: clear to auscultation bilaterally Skin General skin exam: no rashes or lesions noted Course Vital Signs Vital signs: Vital Signs Temperature 36.7 C 12/08/22 20:09 Pulse 82 12/08/22 20:09 Respiratory Rate 16 12/08/22 20:09 Blood Pressure 108/72 12/08/22 20:09 Pulse Oximetry 100 12/08/22 20:09 Temperature 36.7 C 12/08/22 20:09 Temperature Source Temporal Artery Scan 12/08/22 20:09 Pulse 82 12/08/22 20:09 Respiratory Rate 16 12/08/22 20:09 Respiratory Effort Normal, Non-Labored 12/08/22 20:12 Blood Pressure 108/72 12/08/22 20:09 Blood Pressure Position Sitting 12/08/22 20:09 Pulse Oximetry 100 12/08/22 20:09 Oxygen Delivery Method Room Air 12/08/22 20:09 Oxygen Flow Rate 0 12/08/22 20:09 Pain Level 2 12/08/22 20:09 PAWSS Have you Been Recently Intoxicated or Drunk Within the Last 30 days?: No Have you Ever Experienced Previous Episodes of Alcohol Withdrawal?: No Have you ever Experienced Withdrawal Seizures?: No Have you ever Experienced Delirium Tremens(DT)s?: No Have you ever undergone Alcohol Rehabilitation Treatment (i.e, inpt ot outpatient treatment programs)?: No Have you ever Experienced Blackouts?: No Have you ever Combined Alcohol with other Downers within the last 90 days?: No Have you ever Combined Alcohol with any other Substance of Abuse during the last 90 days?: No Positive Blood Alcohol level on Presentation? [PCS.BAL]: No Evidence of Increased Autonomic Activity (i.e. HR>120, tremor, sweating, agitation, nausea)?: No Result: 0
[2022-12-08] MEDS: Penicillin V POTASSIUM 500 MG TAB PO (23:34)
[2022-12-08] MEDS: Penicillin V POTASSIUM 500 MG TAB, 4 TABS/BTL PO (23:34)
[2022-12-08 23:35] VITALS: BP 110/70; PULSE 72; RESP 16; TEMP 37.1; O2SAT 100
== END 2022-12-08 23:45 | disposition home or self-care (01) ==
PROVIDERS: Emergency Provider Registered Nurse Emergency
DX: K08.89 Other specified disorders of teeth and supporting structures (principal); T63.441A Toxic effect of venom of bees, accidental (unintentional), initial encounter; F17.210 Nicotine dependence, cigarettes, uncomplicated; Z76.5 Malingerer [conscious simulation]; Z59.00 Homelessness unspecified; X58.XXXA Exposure to other specified factors, initial encounter; Z79.82 Long term (current) use of aspirin
CPT/HCPCS: 99283; 99282

== ENCOUNTER 2023-01-03 12:37 | Emergency (ER) | payer MEDICARE, MEDICAID, SELFPAY ==
[2023-01-03 12:42] VITALS: BP 107/84; PULSE 94; RESP 18; TEMP 36.8; O2SAT 100
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
== END 2023-01-03 13:07 | disposition home or self-care (01) ==
PROVIDERS: Emergency Provider Emergency Medicine Emergency Medical Services
DX: M79.671 Pain in right foot (principal)
CPT/HCPCS: 99281; 99282

== ENCOUNTER 2023-01-04 03:31 | Emergency (ER) | payer MEDICARE, MEDICAID, SELFPAY ==
[2023-01-04 03:32] VITALS: BP 125/72; PULSE 83; RESP 16; TEMP 36.8; O2SAT 99
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
[2023-01-04 04:01] LABS: Abs Immature Grans 0.01 10^3/uL (0.0-0.06); Absolute Basophil Count 0.05 10^3/uL (0.0-0.2); Absolute Eosinophil Count 0.14 10^3/uL (0.0-0.7); Absolute Lymphocyte Count 2.73 10^3/uL (1.2-3.4); Absolute Monocyte Count 0.55 10^3/uL (0.1-0.8); Absolute Neutrophil Count 3.66 10^3/uL (1.2-6.7); Basophils % 0.7; HCT 38.9 % (40.0-50.0); HGB 13.2 g/dL (13.5-17.5); Immature Grans % 0.1; Lymphocytes % 38.2; MCH 29.8 pg (27.0-33.0); MCHC 33.9 % (32.0-36.0); MCV 88 fL (80-95); MPV 9.3 fL (8.0-11.0); Monocytes % 7.7; Neutrophils % 51.3; Platelet Count 183 10^3/uL (130-400); RBC 4.43 10^6/uL (4.36-5.78); RDW 14.4 % (11.8-14.1); WBC 7.14 10^3/uL (4.4-10.8)
[2023-01-04 04:13] LABS: Bilirubin Negative (Negative); Blood Negative (Negative); Clarity Clear (Clear); Glucose Negative (Negative); Ketones Negative (Negative); Leukocyte Esterase Negative (Negative); Nitrite Negative (Negative); Specific Gravity >= 1.030 (1.005-1.025); Urobilinogen 0.2 mg/dL (Up to 0.2)
[2023-01-04 04:21] LABS: Salicylate < 2.8 mg/dL (<2.8)
[2023-01-04 04:22] LABS: Acetaminophen < 2 ug/mL (10-30)
[2023-01-04 04:26] LABS: *AMPHETAMINES SCREEN URINE Negative (Negative); *BARBITURATES SCREEN URINE Negative (Negative); *BENZODIAZEPINES SCREEN URINE Negative (Negative); Cannabinoids THC Positive (Negative); Cocaine Screen,Urine Negative (Negative); METHADONE URINE SCREEN Negative (Negative); OPIATES URINE SCREEN Negative (Negative)
[2023-01-04 04:31] LABS: Tricyclic Antidepressants Negative (Negative)
[2023-01-04 04:31] LABS: ALT 41 U/L (16-63); AST 34 U/L (15-37); Albumin 3.4 g/dL (3.4-5.0); Alkaline Phosphatase 67 U/L (46-116); Anion Gap 7.4 mmol/L (3-11); BUN 21 mg/dL (7-18); Bilirubin, Total 0.4 mg/dL (0.2-1.0); CO2 26.6 mmol/L (21.0-32.0); Calcium 8.7 mg/dL (8.5-10.1); Chloride 107 mmol/L (98-107); Glucose 132 mg/dL (74-106); Potassium 3.8 mmol/L (3.5-5.1); Sodium 141 mmol/L (136-145); TSH (W/Ref FT4) 1.34 uIU/mL (0.36-3.74); Total Protein 6.7 g/dL (6.4-8.2)
[2023-01-04 04:32] LABS: ETHANOL BLOOD < 3.0 mg/dL (<10)
[2023-01-04] MEDS: Aspirin 81 MG CHEW PO (06:10)
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
--- NOTE | 2023-01-04 08:33 | CMSP_ITS ---
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 He was assessed by [facility] hse coordinator and a mental health EE was issued, awaiting 2nd Certification by Psychiatrist. Jose Alfredo will remain at [facility] and will be reassessed twice daily by [facility] until he transitions to an accepting inpatient psych facility.? CM will continue to follow.? INVOLUNTARY?FOR INPATIENT PSYCHIATRIC STABILIZATION. Safety plan?has been established to meet the needs of the patient, and consideration of the care team, to adhere to patient goals, identify restrictions based on behavioral status, address nutrition, and determine allowed personal belongings, tools for hygiene and personal care. Determine level of activity including ambulation, level of supervision, visitors, and determine privileges based on behaviors and level of engagement by pt. SAFETY PLAN: 1. Will remain on SI/HI precautions. In Paper Clothes. 2. Will remain in room under direct supervision of one-on-one staff at all times provided by [employer]PS[employer], CORPORATE AUDITOR, CULINARY ARTIST chest pain coordinator. 3. May have paper cups, plates, finger foods as well as a cardboard spoon to eat meals with. 4. Follow [facility] Management of the Admitted Behavioral Health Patient policy. 5. Comfort bath system only; shower permitted at RN discretion. 6. No personal belongings. 7. No visitors at this time. 8. Activities: Soft cart items at RN discretion. 9. Bathroom privileges with supervision 10. Phone: Limited to legal contacts via cordless hospital phone at RN discretion. 11. Due to INVOLUNTARY status, patient is being held at [facility] by the Department of Mental Health ([facility]) until 2nd certification by [facility] Psychiatrist can be performed (within 24 hours). Staff will provide de-escalation support (CPI) as needed. If patient wishes to leave [facility], staff will contact [facility] Crisis Screener ([phone]) and On-Call Relief Pilot ([phone]) as soon as possible. In the event of elopement, notify [facility] Police ([phone]). Patient is currently involuntarily at [facility]. [facility] Frontline Heat Regulator will continue seeking placement. Please contact the Drafting Layout Man Relief Pilot ([phone]) for any needed changes to Safety Plan. Safety plan has been provided to interdepartmental care team. Patient will be transported by costumer at time of discharge.
--- NOTE | 2023-01-04 08:33 | PDOC.CMSAFE ---
Date of service: 01/04/23 Time of Service: 08:33 Care Management Safety Plan Status Status: Involuntary Reason for Wait Reason for Wait: Inpatient Admission Safety Plan Safety Plan: CHIEF COMPLAINT:??Jose Alfredo is a former [employer] client who presented to the ER via EMS with perry to his feet and altered mental status. He was assessed by [facility] needle straightener and a mental health EE was issued, awaiting 2nd Certification by Psychiatrist. Jose Alfredo will remain at [facility] and will be reassessed twice daily by [facility] until he transitions to an accepting inpatient psych facility.? CM will continue to follow.? INVOLUNTARY?FOR INPATIENT PSYCHIATRIC STABILIZATION. Safety plan?has been established to meet the needs of the patient, and consideration of the care team, to adhere to patient goals, identify restrictions based on behavioral status, address nutrition, and determine allowed personal belongings, tools for hygiene and personal care. Determine level of activity including ambulation, level of supervision, visitors, and determine privileges based on behaviors and level of engagement by pt. SAFETY PLAN: 1. Will remain on SI/HI precautions. In Paper Clothes. 2. Will remain in room under direct supervision of one-on-one staff at all times provided by CPSO, AUTO HAULAWAY DRIVER, MILLING MACHINIST curb worker. 3. May have paper cups, plates, finger foods as well as a cardboard spoon to eat meals with. 4. Follow [facility] Management of the Admitted Behavioral Health Patient policy. 5. Comfort bath system only; shower permitted at RN discretion. 6. No personal belongings. 7. No visitors at this time. 8. Activities: Soft cart items at RN discretion. 9. Bathroom privileges with supervision 10. Phone: Limited to legal contacts via cordless hospital phone at RN discretion. 11. Due to INVOLUNTARY status, patient is being held at [facility] by the Department of Mental Health ([facility]) until 2nd certification by [facility] Psychiatrist can be performed (within 24 hours). Staff will provide de-escalation support (CPI) as needed. If patient wishes to leave [facility], staff will contact [facility] Crisis Screener ([phone]) and On-Call Ui Developer With [employer] ([phone]) as soon as possible. In the event of elopement, notify [facility] Police ([phone]). Patient is currently involuntarily at [facility]. [facility] Frontline Well Service Floorperson will continue seeking placement. Please contact the [employer] Ui Developer With [employer] ([phone]) for any needed changes to Safety Plan. Safety plan has been provided to interdepartmental care team. Patient will be transported by offender employment specialist at time of discharge.
[2023-01-04] MEDS: Nicotine 2 MG LOZG SUC (10:24)
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
--- NOTE | 2023-01-04 14:03 | NUR.NOTE ---
Pt wants to leave the ED. Pt walked out the front door then returned to his room. Security remained with him at all times. [ End ]
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
--- NOTE | 2023-01-04 17:32 | NUR.NOTE ---
patient has repeatedly urinated on the floor in his room even though he has a urinal at his disposal and has been offered bathroom privileges Nursing Note:
--- NOTE | 2023-01-04 17:51 | NUR.NOTE ---
Nursing Note: Held off on meedication, per Dr Fisher. Pt is currently not a threat to self or others. Medication on standby for possible increase in pt anxiety and outbursts.
--- NOTE | 2023-01-04 18:16 | NUR.NOTE ---
Nursing Note: Pt was belligerent and angry. Pt walked out of the ED. Pt advised of the risks of leaving. All attempts to redirect pt back to the room were unsuccessful. Pt continued to walked out of the ED with Security standing by.
== END 2023-01-04 18:34 | disposition left against medical advice (07) ==
PROVIDERS: Emergency Medicine; Emergency Provider Student in an Organized Health Care Education/Training Program
DX: T23.072A Burn of unspecified degree of left wrist, initial encounter (principal); F25.0 Schizoaffective disorder, bipolar type; Z53.29 Procedure and treatment not carried out because of patient's decision for other reasons; F23 Brief psychotic disorder; Z79.899 Other long term (current) drug therapy
CPT/HCPCS: 36415; 80053; 80307; 99285; 80320; 80329; 81003; 84443; 85025

== ENCOUNTER 2023-01-05 08:19 | Emergency (ER) | payer MEDICARE, MEDICAID, SELFPAY ==
[2023-01-05 08:26] VITALS: BP 97/67; PULSE 103; TEMP 36.8; O2SAT 100
--- NOTE | 2023-01-05 08:35 | ED.GENADUL_ITS ---
Discharge Plan Disposition Patient Disposition: Against Medical Advice Discharge Details Clinical Impression: Malingering, Psychotic episode Primary Care Provider: Unknown,Unknown ED Provider: Adina Hubbard Home Meds and New Rx's Prescriptions: No Action cyanocobalamin (vitamin B-12) 1,000 mcg capsule 1,000 mcg PO DAILY Patient Comments: not taking gabapentin 100 mg capsule 100 mg PO TID Patient Comments: not taking thiamine HCl (vitamin B1) 100 mg tablet 100 mg PO DAILY Patient Comments: does not take aspirin [Adult Aspirin Regimen] 81 mg tablet,delayed release (DR/EC) 81 mg PO DAILY Patient Comments: not taking multivitamin Tablet 1 tab PO DAILY Patient Comments: does not take vitamin E mixed 400 unit capsule PO Patient Comments: does not take epinephrine [EpiPen] 0.3 mg/0.3 mL auto-injector 0.3 mg IM Q4H PRN Abilify Maintena 300 mg suspension,extended rel recon 300 mg IM QMONTH Vyvanse 50 mg capsule 50 mg PO DAILY lorazepam [Ativan] 0.5 mg tablet 0.5 mg PO BID PRN guaifenesin [Mucinex] 600 mg tablet extended release 12hr 600 mg PO Q12H PRNQty: 10 0RF Patient Comments: not taking Medical Decision Making 47-year-old male presents to the ER with request for I need some help patient was brought in by police and dropped off, patient was seen here yesterday, had some violent outbursts and mental health eval and eloped. Patient reports that he is not on any medications and he states I do not want any. He is denying any suicidal or homicidal ideations at this time. He denies wanting to hurt himself or others. He does endorse marijuana yesterday denies any other drugs or alcohol. He does have flight of ideas states I need some zip ties, Trump is okay, I need some zip ties for my mother. He is complaining of foot pain. He does have a history of schizophrenia, anxiety and depression, COPD, hyperglycemia and opioid abuse and tobacco abuse. Medical clearance work-up ordered including TSH, Tylenol salicylate level, UA UDS CBC CMP. A clinical patient safety observer was ordered, patient placed in paper scrubs and line of sight of nurses station. Initially patient has been, cooperative. However, I have a low threshold for restraint and sedation if needed after reviewing yesterdays documentation. 0941: Patient given a 21 mg nicotine patch and an 81 mg aspirin, breakfast and coffee. He is up out of his room, security is at bedside. He is requesting a nicotine cartridge which we do not supply anymore. He is requesting to go outside and smoke a cigarette I did inform him that it is a non-smoking campus. He is requesting to leave and he would like to get his crap. He states I will fuck anyone up if they try to make me stay I want my stuff. As patient is here on a voluntary status at this time, and does not appear to be under the influence, Patient escorted off property with security. Patient did present in a voluntary status. Patient left prior to his completion of his medical clearance and mental health evaluation. Attempted to encourage patient to stay, he is refusing at this time. Patient left the department Against Medical Advice and prior to the completion of his workup and evaluation. Patient was medically cleared yesterday, CBC has resulted and is largely unremarkable. This text was generated using [employer] dictation system, please disregard any odd ities of phrase or misspellings. Medical Records Medical records reviewed: Yes I reviewed the patient's medical records. Medical records narrative: Seen here 8-3 and 8-4 Became verbally and physically violent, threw items and threatened staff and eventually ran out of department. Lab Data Lab results reviewed: Yes I reviewed the patient's lab results. Labs: Laboratory Tests Range/Units 01/05/23 01/05/23 09:15 09:15 WBC (4.4-10.8) 10^3/uL 6.86 RBC (4.36-5.78) 10^6/uL 4.68 Hgb (13.5-17.5) g/dL 14.1 Hct (40.0-50.0) % 40.6 MCV (80-95) fL 87 MCH (27.0-33.0) pg 30.1 MCHC (32.0-36.0) % 34.7 RDW (11.8-14.1) % 14.3 H Plt Count (130-400) 10^3/uL 191 MPV (8.0-11.0) fL 9.5 Immature Gran % 0.1 Neutrophils % 51.2 Lymphocytes % 39.5 Monocytes % 7.3 Eosinophils % 1.5 Basophils % 0.4 Nucleated RBC % (0.0-0.3) % 0.0 Absolute Neutrophils (1.2-6.7) 10^3/uL 3.51 Absolute Lymphocytes (1.2-3.4) 10^3/uL 2.71 Absolute Monocytes (0.1-0.8) 10^3/uL 0.50 Absolute Eosinophils (0.0-0.7) 10^3/uL 0.10 Absolute Basophils (0.0-0.2) 10^3/uL 0.03 Sodium (136-145) mmol/L 139 Potassium (3.5-5.1) mmol/L 4.0 Chloride (98-107) mmol/L 103 Carbon Dioxide (21.0-32.0) mmol/L 26.2 Anion Gap (3-11) mmol/L 9.8 BUN (7-18) mg/dL 21 H Creatinine (0.70-1.30) mg/dL 1.1 Est GFR (CKD-EPI 2020) (mL/min/1.73m2) 83.84 Glucose (74-106) mg/dL 118 H Calcium (8.5-10.1) mg/dL 9.1 Total Bilirubin (0.2-1.0) mg/dL 0.7 AST (15-37) U/L 25 ALT (16-63) U/L 45 Alkaline Phosphatase (46-116) U/L 67 Total Protein (6.4-8.2) g/dL 6.9 Albumin (3.4-5.0) g/dL 3.5 TSH (0.36-3.74) uIU/mL 1.74 Ethyl Alcohol (<10) mg/dL < 3.0 HPI General Mode of arrival: ambulatory . Date/Time Provider Initiated Documentation: 01/05/23 08:23 . Limitations to Documentation: no limitations and physical limitation (Schizophrenia, Flight of ideas) . Information obtained by: patient, RN notes reviewed and old records reviewed . HPI Narrative: 47-year-old male presents to the ER with request for I need some help patient was brought in by police and dropped off, patient was seen here yesterday, had some violent outbursts and mental health eval and eloped. Patient reports that he is not on any medications and he states I do not want any. He is denying any suicidal or homicidal ideations at this time. He denies wanting to hurt himself or others. He does endorse marijuana yesterday denies any other drugs or alcohol. He does have flight of ideas states I need some zip ties, Trump is okay, I need some zip ties for my mother. He is complaining of foot pain. He does have a history of schizophrenia, anxiety and depression, COPD, hyperglycemia and opioid abuse and tobacco abuse. Related Data Home Medications Medication Instructions Recorded Confirmed aspirin 81 mg tablet,delayed 81 mg PO DAILY 04/24/22 01/05/23 release (Adult Aspirin Regimen) cyanocobalamin (vitamin B-12) 1,000 mcg PO DAILY 04/24/22 01/04/23 1,000 mcg capsule gabapentin 100 mg capsule 100 mg PO TID 04/24/22 01/04/23 multivitamin 1 tab PO DAILY 04/24/22 01/04/23 thiamine HCl (vitamin B1) 100 mg 100 mg PO DAILY 04/24/22 01/04/23 tablet vitamin E mixed 400 unit capsule unit PO 04/24/22 guaifenesin 600 mg tablet, 600 mg PO Q12H PRN #10 tabs 05/20/22 01/04/23 extended release 12 hr (Mucinex) aripiprazole 300 mg intramuscular 300 mg IM QMONTH 12/20/22 01/04/23 suspension,extended release (Abilify Maintena) epinephrine 0.3 mg/0.3 mL 0.3 mg IM Q4H PRN 12/20/22 01/04/23 injection, auto-injector (EpiPen) lisdexamfetamine 50 mg capsule 50 mg PO DAILY 12/20/22 01/04/23 (Vyvanse) lorazepam 0.5 mg tablet (Ativan) 0.5 mg PO BID PRN 12/20/22 01/04/23 Previous Rx's Medication Instructions Recorded guaifenesin 600 mg tablet, 600 mg PO Q12H PRN #10 tabs 05/20/22 extended release 12 hr (Mucinex) Allergies Allergy/AdvReac Type Severity Reaction Status Date / Time sildenafil [From Viagra] Allergy Severe Verified 01/03/23 12:46 bee venom protein (honey bee) Allergy Verified 01/03/23 12:46 naproxen Allergy Verified 01/03/23 12:46 prednisone Allergy Verified 01/03/23 12:46 shrimp Allergy Verified 01/03/23 12:46 vicotin Allergy Uncoded 01/03/23 12:46 healy milk AdvReac Uncoded 01/03/23 12:46 General Stated Complaint: PsychEval ARNAV: 2 Review of Systems All systems reviewed & are unremarkable except as noted in HPI and below Musculoskeletal Musculoskeletal: Reports as per HPI and Reports other (Foot pain) Psychiatric Psychiatric: Reports as per HPI, Reports depression, Denies homicidal ideation and Denies suicidal ideation PFSH All Active Problems (Updated 01/05/23 @ 09:44 by Adina Hubbard NP) Foot pain, right (Acute) Psychotic episode (Acute) Chronic dental pain (Acute) Bee sting (Acute) Malingering (Acute) Psychiatric diagnosis deferred (Acute) Medical History Anxiety and depression Back pain Bronchitis Contact with contaminated hypodermic needle Depression Family history of thyroid disease History of COPD History of hyperglycemia Marijuana use Opioid abuse Schizophrenia Tobacco abuse Surgical History H/O thumb surgery Social History Smoking/Tobacco Use Status: Current-Occasional Tobacco Type: cigarettes Smoking risk assessment performed?: Yes Alcohol Intake: current Alcohol type: hard liquor Drug use: Binges Substance use type: marijuana and prescription drug Details: 01/04/23 Housing: homeless Exam Narrative Exam Narrative: Constitutional: Mumbling, Flight of ideas, initially calm and cooperative. Appears stated age. Normal body habitus. Head: Normocephalic, no trauma. Eyes: Pupils PERRL, Red reflex noted, EOM's intact. Eyelids symmetrical without lesions, discharge, or swelling. Pupils 2mm equal bilaterally. Chest: RRR, Normal S1, S2, distal pulses intact. Resp: Lungs clear to auscultation bilaterally, no wheezes, rales, or rhonchi. Abdomen: Soft, non-distended, Normoactive bowel sounds all 4 quads. Musculoskeletal: Normal gait, 5/5 strength to all four extremities. Skin: Capillary refill less than 2 sec. Neurologic: Cranial nerves II-XII intact. Alert and oriented x 3. Motor: No deficits noted. Sensory: Intact bilaterally all 4 extremities. Psych Appearance: well kempt Speech and Movement: pressured speech and other (Mumbling) Mood: labile mood Affect: labile affect, indifferent and blunted Attitude: cooperative Thought Process: flight of ideas and tangential Thought Content: compulsions Insight: limited Judgment: limited Course Vital Signs Vital signs: Vital Signs Temperature 36.8 C 01/05/23 08:26 Pulse 103 H 01/05/23 08:26 Blood Pressure 97/67 L 01/05/23 08:26 Pulse Oximetry 100 01/05/23 08:26 Temperature 36.8 C 01/05/23 08:26 Temperature Source Skin 01/05/23 08:26 Pulse 103 H 01/05/23 08:26 Blood Pressure 97/67 L 01/05/23 08:26 Blood Pressure Position Sitting 01/05/23 08:26 Pulse Oximetry 100 01/05/23 08:26 Oxygen Delivery Method Room Air 01/05/23 08:26 Oxygen Flow Rate 0 01/05/23 08:26 Pain Level 2 01/05/23 08:26 Comment foot 01/05/23 08:26
[2023-01-05] MEDS: Nicotine 21 MG/24 HR PATCH TD (08:59)
[2023-01-05] MEDS: Aspirin 81 MG CHEW CH (09:01)
[2023-01-05 09:23] LABS: Abs Immature Grans 0.01 10^3/uL (0.0-0.06); Absolute Basophil Count 0.03 10^3/uL (0.0-0.2); Absolute Lymphocyte Count 2.71 10^3/uL (1.2-3.4); Absolute Neutrophil Count 3.51 10^3/uL (1.2-6.7); Basophils % 0.4; Eosinophils % 1.5; HCT 40.6 % (40.0-50.0); HGB 14.1 g/dL (13.5-17.5); Immature Grans % 0.1; Lymphocytes % 39.5; MCH 30.1 pg (27.0-33.0); MCHC 34.7 % (32.0-36.0); MCV 87 fL (80-95); MPV 9.5 fL (8.0-11.0); Monocytes % 7.3; Neutrophils % 51.2; Platelet Count 191 10^3/uL (130-400); RBC 4.68 10^6/uL (4.36-5.78); RDW 14.3 % (11.8-14.1); RDW-SD 45.9 fL; WBC 6.86 10^3/uL (4.4-10.8)
[2023-01-05 09:43] LABS: ALT 45 U/L (16-63); AST 25 U/L (15-37); Albumin 3.5 g/dL (3.4-5.0); Alkaline Phosphatase 67 U/L (46-116); Anion Gap 9.8 mmol/L (3-11); BUN 21 mg/dL (7-18); Bilirubin, Total 0.7 mg/dL (0.2-1.0); CO2 26.2 mmol/L (21.0-32.0); CREATININE 1.1 mg/dL (0.70-1.30); Calcium 9.1 mg/dL (8.5-10.1); Chloride 103 mmol/L (98-107); ETHANOL BLOOD < 3.0 mg/dL (<10); Estimated GFR 83.84 (mL/min/1.73m2); Glucose 118 mg/dL (74-106); Sodium 139 mmol/L (136-145); TSH (W/Ref FT4) 1.74 uIU/mL (0.36-3.74); Total Protein 6.9 g/dL (6.4-8.2)
[2023-01-05 09:50] LABS: Salicylate < 2.8 mg/dL (<2.8)
[2023-01-05 09:52] LABS: Acetaminophen < 2 ug/mL (10-30)
== END 2023-01-05 09:42 | disposition left against medical advice (07) ==
PROVIDERS: Emergency Provider Registered Nurse Emergency
DX: Z76.5 Malingerer [conscious simulation]; F23 Brief psychotic disorder; Z53.29 Procedure and treatment not carried out because of patient's decision for other reasons; F25.9 Schizoaffective disorder, unspecified; F41.9 Anxiety disorder, unspecified; F32.9 Major depressive disorder, single episode, unspecified; F17.200 Nicotine dependence, unspecified, uncomplicated; F11.10 Opioid abuse, uncomplicated; Z79.899 Other long term (current) drug therapy; Z79.82 Long term (current) use of aspirin
CPT/HCPCS: 36415; 80053; 99285; 80320; 80329; 84443; 85025

== ENCOUNTER 2023-03-21 22:33 | Emergency (ER) | payer MEDICARE, MEDICAID, SELFPAY ==
--- NOTE | 2023-03-21 21:45 | DI.RAD_ITS ---
Exam(s) XR ANKLE RT COMPLETE EXAM: XR ANKLE RT COMPLETE CLINICAL HISTORY: pain to ankle and mcdaniel from walking. TECHNIQUE: 2D digital imaging was performed. COMPARISON: No exams were available for comparison FINDINGS: 3 views No evidence of fracture or widening of the ankle mortise. Talar dome unremarkable. Bone density nor mal. No osseous lesions. Small osteophytic density in the posterior aspect of the tibiotalar joint noted. Probable loose intra-articular body. IMPRESSION: There is a 4 x 4 mm calcific density in the posterior aspect of the tibiotalar joint. Probable loose intra-articular body. No other significant osseous findings. DATA REPOSITORY: RADIATION DOSE DELIVERED:
--- NOTE | 2023-03-21 21:45 | DI.RAD_ITS ---
Exam(s) XR TIB/FIB RT EXAM: XR TIB/FIB RT CLINICAL HISTORY: mcdaniel splints from walking. TECHNIQUE: 2D digital imaging was performed. COMPARISON: No exams were available for comparison FINDINGS: Two views. No evidence of fracture. No significant bone lesions. Benign bone island noted in the upper tibia. No radiopaque foreign body. IMPRESSION: No significant osseous findings. DATA REPOSITORY: RADIATION DOSE DELIVERED:
[2023-03-21 21:48] VITALS: BP 139/92; PULSE 83; RESP 16; TEMP 36.4; O2SAT 99
--- NOTE | 2023-03-21 21:58 | NUR.NOTE ---
Nursing Note: Nadeen Veliz [phone]
--- NOTE | 2023-03-21 22:01 | ED.GENADUL_ITS ---
Discharge Plan Disposition Patient Disposition: Home Condition: Improving Discharge Details Chief Complaint: Orthopedic Clinical Impression: Leg pain ED Provider: Sam Young Home Meds and New Rx's Prescriptions: No Action cyanocobalamin (vitamin B-12) 1,000 mcg capsule 1,000 mcg PO DAILY Patient Comments: not taking gabapentin 100 mg capsule 100 mg PO TID Patient Comments: not taking thiamine HCl (vitamin B1) 100 mg tablet 100 mg PO DAILY Patient Comments: does not take aspirin [Adult Aspirin Regimen] 81 mg tablet,delayed release (DR/EC) 81 mg PO DAILY Patient Comments: not taking multivitamin Tablet 1 tab PO DAILY Patient Comments: does not take vitamin E mixed 400 unit capsule PO Patient Comments: does not take epinephrine [EpiPen] 0.3 mg/0.3 mL auto-injector 0.3 mg IM Q4H PRN Abilify Maintena 300 mg suspension,extended rel recon 300 mg IM QMONTH lisdexamfetamine [Vyvanse] 50 mg capsule 50 mg PO DAILY lorazepam [Ativan] 0.5 mg tablet 0.5 mg PO BID PRN guaifenesin [Mucinex] 600 mg tablet extended release 12hr 600 mg PO Q12H PRNQty: 10 0RF Patient Comments: not taking Discharge Instructions Instructions: Leg Pain (ED) Additional Instructions: Please continue with ice elevation acetaminophen for pain. Medical Decision Making 47-year-old male [place] [address], undomiciled, endorses right pablo discomfort from walking, no definitive trauma, patient alert oriented hemodynamically stable limb appears atraumatic, full range of motion, sensate, D P pulse intact neurovascular exam intact, tenderness to palpation over anterior distal aspect of tibial prominence, likely shinsplints low suspicion for fracture dislocation no evidence of infection. Patient does have resources in his family, will attempt to call his mother as an option for a place for him to stay 23: 33 patient resting comfortably no acute distress x-rays unremarkable. HPI General Date/Time Provider Initiated Documentation: 03/21/23 22:54 . HPI Narrative: 47-year-old male brought in by EMS [place], patient has been walking for some time as he is undomiciled. Has the option to stay with his mother and other family members. Endorses right pablo discomfort Related Data Home Medications Medication Instructions Recorded Confirmed aspirin 81 mg tablet,delayed 81 mg PO DAILY 11/22/22 10/19/23 release (Adult Aspirin Regimen) cyanocobalamin (vitamin B-12) 1,000 mcg PO DAILY 04/24/22 03/21/23 1,000 mcg capsule gabapentin 100 mg capsule 100 mg PO TID 04/24/22 03/21/23 multivitamin 1 tab PO DAILY 04/24/22 03/21/23 thiamine HCl (vitamin B1) 100 mg 100 mg PO DAILY 04/24/22 03/21/23 tablet vitamin E mixed 400 unit capsule unit PO 04/24/22 guaifenesin 600 mg tablet, 600 mg PO Q12H PRN #10 tabs 05/20/22 03/21/23 extended release 12 hr (Mucinex) aripiprazole 300 mg intramuscular 300 mg IM QMONTH 12/20/22 03/21/23 suspension,extended release (Abilify Maintena) epinephrine 0.3 mg/0.3 mL 0.3 mg IM Q4H PRN 12/20/22 01/04/23 injection, auto-injector (EpiPen) lisdexamfetamine 50 mg capsule 50 mg PO DAILY 12/20/22 03/21/23 (Vyvanse) lorazepam 0.5 mg tablet (Ativan) 0.5 mg PO BID PRN 12/20/22 03/21/23 Previous Rx's Medication Instructions Recorded guaifenesin 600 mg tablet, 600 mg PO Q12H PRN #10 tabs 05/20/22 extended release 12 hr (Mucinex) Allergies Allergy/AdvReac Type Severity Reaction Status Date / Time sildenafil [From Viagra] Allergy Severe Verified 03/21/23 21:53 bee venom protein (honey bee) Allergy Verified 03/21/23 21:53 naproxen Allergy Verified 03/21/23 21:53 prednisone Allergy Verified 03/21/23 21:53 shrimp Allergy Verified 03/21/23 21:53 vicotin Allergy Uncoded 03/21/23 21:53 healy milk AdvReac Uncoded 03/21/23 21:53 General Stated Complaint: Orthopedic ARNAV: 4 Review of Systems Narrative: Review of Systems Constitutional: negative Eyes: negative ENT: negative Cardiovascular: negative Respiratory: negative Gastrointestinal: negative : negative Musculoskeletal: Pablo pain Skin: negative Neurologic: negative Psych: negative PFSH All Active Problems (Updated 03/21/23 @ 23:34 by Sam Young MD) Leg pain (Acute) Psychiatric diagnosis deferred (Acute) Medical History Anxiety and depression Back pain Bronchitis Contact with contaminated hypodermic needle Depression Family history of thyroid disease History of COPD History of hyperglycemia Marijuana use Opioid abuse Schizophrenia Tobacco abuse Surgical History H/O thumb surgery Social History Smoking/Tobacco Use Status: Current-Occasional Tobacco Type: cigarettes Smoking risk assessment performed?: Yes Alcohol Intake: current Alcohol type: hard liquor Drug use: Binges Substance use type: marijuana and prescription drug Details: 01/04/23 Housing: homeless Exam Narrative Exam Narrative: Physical Examination General: alert, awake, cooperative, resting comfortably, no acute distress HEENT: normocephalic, atraumatic Neck: supple, trachea midline; full ROM Chest: normal to inspection Respiratory: normal respiratory effort, speaking in full sentences Skin: no lesions, rashes or trauma appreciated Neuro: AAOx3, normal speech, moving all extremities Extremities: Moving all extremities full strength bilateral lower extremities, tenderness to palpation over distal anterior tibial prominence without ecchymosis induration erythema crepitus or deformity. DP pulse intact sensate Course Vital Signs Vital signs: Vital Signs Temperature 36.4 C L 03/21/23 21:48 Pulse 83 03/21/23 21:48 Respiratory Rate 16 03/21/23 21:48 Blood Pressure 139/92 H 03/21/23 21:48 Pulse Oximetry 99 03/21/23 21:48 Temperature 36.4 C L 03/21/23 21:48 Temperature Source Temporal Artery Scan 03/21/23 21:48 Pulse 83 03/21/23 21:48 Respiratory Rate 16 03/21/23 21:48 Respiratory Effort Normal 03/21/23 21:52 Blood Pressure 139/92 H 03/21/23 21:48 Blood Pressure Position Supine 03/21/23 21:48 Pulse Oximetry 99 03/21/23 21:48 Pain Level 10 03/21/23 21:56
[2023-03-21] MEDS: Acetaminophen 325 MG TAB 650 MG PO (22:26)
--- NOTE | 2023-03-21 23:20 | DI.VRAD_ITS ---
PROCEDURE INFORMATION: Exam: XR Right Ankle Exam date and time: 03/21/2023 10:38 PM Age: 47 years old Clinical indication: Other: Pain to ankle and mcdaniel from walking TECHNIQUE: Imaging protocol: Radiologic exam of the right ankle. Views: 3 or more views. COMPARISON: No relevant prior studies available. FINDINGS: Bones/joints: No acute fracture or subluxation. Posterior calcaneal spur. Soft tissues: Unremarkable. IMPRESSION: No acute bony pathology. Dictated and Authenticated by: Natali Edouard MD. Ordering:ALONA Vargas MD
--- NOTE | 2023-03-21 23:20 | DI.VRAD_ITS ---
PROCEDURE INFORMATION: Exam: XR Right Tibia and Fibula Exam date and time: 03/21/2023 10:37 PM Age: 47 years old Clinical indication: Other: Pain to ankle and mcdaniel from walking TECHNIQUE: Imaging protocol: Radiologic exam of the right tibia and fibula. Views: 2 views. COMPARISON: No relevant prior studies available. FINDINGS: Bones/joints: No acute fracture or subluxation. Soft tissues: Unremarkable. IMPRESSION: No acute bony pathology. Dictated and Authenticated by: Natali Edouard MD. Ordering:ALONA Vagras MD
== END 2023-03-21 23:42 | disposition home or self-care (01) ==
LOC: ER 23:39
PROVIDERS: Emergency Provider Emergency Medicine
DX: M79.661 Pain in right lower leg (principal); F17.210 Nicotine dependence, cigarettes, uncomplicated; Z79.82 Long term (current) use of aspirin
CPT/HCPCS: 99283; 73590; 73610; 99282

== ENCOUNTER 2023-03-22 09:15 | Emergency (ER) | payer MEDICARE, MEDICAID, SELFPAY ==
[2023-03-22 09:18] VITALS: BP 109/74; PULSE 62; O2SAT 100
--- NOTE | 2023-03-22 09:26 | ED.GENADUL_ITS ---
Discharge Plan Disposition Patient Disposition: Other Disposition Not Listed Other Facility: [facility] Condition: Stable Discharge Details Clinical Impression: Delusion Primary Care Provider: Unknown,Unknown ED Provider: Jayy Gilliam Home Meds and New Rx's Prescriptions: Continued cyanocobalamin (vitamin B-12) 1,000 mcg capsule 1,000 mcg PO DAILY Patient Comments: not taking gabapentin 100 mg capsule 100 mg PO TID Patient Comments: not taking thiamine HCl (vitamin B1) 100 mg tablet 100 mg PO DAILY Patient Comments: does not take aspirin [Adult Aspirin Regimen] 81 mg tablet,delayed release (DR/EC) 81 mg PO DAILY Patient Comments: not taking multivitamin Tablet 1 tab PO DAILY Patient Comments: does not take vitamin E mixed 400 unit capsule PO Patient Comments: does not take epinephrine [EpiPen] 0.3 mg/0.3 mL auto-injector 0.3 mg IM Q4H PRN Abilify Maintena 300 mg suspension,extended rel recon 300 mg IM QMONTH Patient Comments: Not taking dont need them lisdexamfetamine [Vyvanse] 50 mg capsule 50 mg PO DAILY lorazepam [Ativan] 0.5 mg tablet 0.5 mg PO BID PRN guaifenesin [Mucinex] 600 mg tablet extended release 12hr 600 mg PO Q12H PRNQty: 10 0RF Patient Comments: not taking Discharge Instructions Instructions: Anxiety (ED) Discharge Data Discharge Physician: Jayy Gilliam Medical Decision Making MDM: Summary: Patient presents emergency department complaining of not having a place to live) male. He was found in the ambulance walking naked downtown. Physical exam is unremarkable and has no complaints. He was fed and social service saw him and again refer him to a place that can help him find a place to live Data Review Analysis All the data on this patient was reviewed by me including laboratory and imaging studies as well as bedside studies performed by me Independent review of Studies Imaging Lab: Risk Stratification: Differential Diagnosis: 1. Homelessness 2. Delusional 3. Substance abuse 4. 5. Consultants: Shared disposition: Patient understands and will try reason to get to places or assisted for homeless people Impression: Medical Records Medical records reviewed: Yes I reviewed the patient's medical records. HPI General Date/Time Provider Initiated Documentation: 03/22/23 09:26 . HPI Narrative: Patient presents emergency department again stating that he is homeless and wanted a full physical but he has no symptoms and that he would like to stay here for a little while. Denies any trauma denies any other complaints Related Data Home Medications Medication Instructions Recorded Confirmed aspirin 81 mg tablet,delayed 81 mg PO DAILY 04/24/22 03/22/23 release (Adult Aspirin Regimen) cyanocobalamin (vitamin B-12) 1,000 mcg PO DAILY 04/24/22 03/22/23 1,000 mcg capsule gabapentin 100 mg capsule 100 mg PO TID 04/24/22 03/22/23 multivitamin 1 tab PO DAILY 04/24/22 03/22/23 thiamine HCl (vitamin B1) 100 mg 100 mg PO DAILY 04/24/22 03/22/23 tablet vitamin E mixed 400 unit capsule unit PO 04/24/22 guaifenesin 600 mg tablet, 600 mg PO Q12H PRN #10 tabs 05/20/22 03/22/23 extended release 12 hr (Mucinex) aripiprazole 300 mg intramuscular 300 mg IM QMONTH 12/20/22 03/22/23 suspension,extended release (Abilify Maintena) epinephrine 0.3 mg/0.3 mL 0.3 mg IM Q4H PRN 12/20/22 03/22/23 injection, auto-injector (EpiPen) lisdexamfetamine 50 mg capsule 50 mg PO DAILY 12/20/22 03/22/23 (Vyvanse) lorazepam 0.5 mg tablet (Ativan) 0.5 mg PO BID PRN 12/20/22 03/22/23 Previous Rx's Medication Instructions Recorded guaifenesin 600 mg tablet, 600 mg PO Q12H PRN #10 tabs 05/20/22 extended release 12 hr (Mucinex) Allergies Allergy/AdvReac Type Severity Reaction Status Date / Time sildenafil [From Viagra] Allergy Severe Verified 03/22/23 09:22 bee venom protein (honey bee) Allergy Verified 03/22/23 09:22 naproxen Allergy Verified 03/22/23 09:22 prednisone Allergy Verified 03/22/23 09:22 shrimp Allergy Verified 03/22/23 09:22 vicotin Allergy Uncoded 03/22/23 09:22 healy milk AdvReac Uncoded 03/22/23 09:22 General Stated Complaint: Orthopedic ARNAV: 4 Review of Systems Narrative: Review of Systems: Constitutional: No fevers, chills, sweats Eye: No recent visual problems ENT: No ear pain, nasal congestion, sore throat Respiratory: No shortness of breath, cough Cardiovascular: No Chest pain, palpitations, syncope Gastrointestinal: No nausea, vomiting, diarrhea Genitourinary: No hematuria Oswald/Lymph: Negative for bruising tendency, swollen lymph glands Endocrine: Negative for excessive thirst, excessive hunger Musculoskeletal: No back pain, neck pain, joint pain, muscle pain, decreased range of motion Integumentary: No rash, pruritus, abrasions Neurologic: Alert & oriented X 4 Psychiatric: No anxiety, depression PFSH All Active Problems (Updated 03/22/23 @ 11:01 by Jayy Gilliam MD) Delusion (Acute) Leg pain (Acute) Psychiatric diagnosis deferred (Acute) Medical History Opioid abuse History of COPD Tobacco abuse Marijuana use Anxiety and depression Back pain Bronchitis Contact with contaminated hypodermic needle History of hyperglycemia Family history of thyroid disease Depression Schizophrenia Surgical History H/O thumb surgery Social History Smoking/Tobacco Use Status: Current-Occasional Tobacco Type: cigarettes Smoking risk assessment performed?: Yes Alcohol Intake: current Alcohol type: hard liquor Drug use: Binges Substance use type: marijuana and prescription drug Details: 01/04/23 Housing: homeless Exam Narrative Exam Narrative: Exam; vitals signs as reported above normal Constitutional; In no acute distress, afebrile General: cooperative, healthy appearing, comfortable and no acute distress HEENT: Head: normal to inspection, no palpable skull fracture and normocephalic atraumatic Eyes: : appearance normal, both eyes and all related structures EOM intact bilaterally Pupils: PERRL : conjunctiva normal Direct ophthalmoscopy: normal light reflex, normal conjunctiva, normal visual acuity Ears: Normal TM, normal external canal Nose: normal no rhinorreha Neck no JVD, supple non tender Neck: normal visual inspection, full ROM and no lymphadenopathy Chest: normal inspection of the chest Respiratory : normal respiratory effort and able to speak in complete sentences no wheezing no rales Cardio Rate: regular rate, rhythm: regular rhythm normal heart sounds S1 and S2 no murmurs, gallops, or rubs GI : normal to inspection, normal bowel sounds, soft, non tender, non distended, no organomegaly Back/Spine/ no CVA tenderness Thoracic/Lumbar Spine: no tenderness or deformities Skin no rashes or lesions Neuro: patient alert oriented x 4 and no meningeal signs, Cranial Nerves: CN's II-XI intact bilaterally, Cognition: normal cognition, Speech: speech normal, Gait: normal gait, Depp tendon reflexes normal 2+ muscle strength 5/5 bilaterally Extremities, no edema, full range of motion, normal strength Psych patient to be delusional with grandiose ideas and dictating service Course Vital Signs Vital signs: Vital Signs Pulse 62 03/22/23 09:18 Blood Pressure 109/74 03/22/23 09:18 Pulse Oximetry 100 03/22/23 09:18 Pulse 62 03/22/23 09:18 Respiratory Effort Normal 03/22/23 09:19 Blood Pressure 109/74 03/22/23 09:18 Blood Pressure Position Supine 03/22/23 09:18 Pulse Oximetry 100 03/22/23 09:18 Oxygen Delivery Method Room Air 03/22/23 09:18 Oxygen Flow Rate 0 03/22/23 09:18 Pain Level 0 03/22/23 09:18
== END 2023-03-22 19:20 | disposition other institution (70) ==
LOC: ER 11:30
PROVIDERS: Emergency Provider Emergency Medicine Emergency Medical Services
DX: F22 Delusional disorders (principal); Z59.00 Homelessness unspecified; F19.90 Other psychoactive substance use, unspecified, uncomplicated
CPT/HCPCS: 99283; 99282

== ENCOUNTER 2023-04-05 03:34 | Emergency (ER) | payer MEDICARE, MEDICAID, SELFPAY ==
[2023-04-05 03:42] VITALS: BP 123/88; PULSE 103; RESP 18; TEMP 36.6; O2SAT 94
--- NOTE | 2023-04-05 03:52 | ED.GENADUL_ITS ---
Discharge Plan Discharge Details Chief Complaint: PsychEval Primary Care Provider: Unknown,Unknown ED Provider: Sam Young Home Meds and New Rx's Prescriptions: No Action cyanocobalamin (vitamin B-12) 1,000 mcg capsule 1,000 mcg PO DAILY Patient Comments: not taking gabapentin 100 mg capsule 100 mg PO TID Patient Comments: not taking thiamine HCl (vitamin B1) 100 mg tablet 100 mg PO DAILY Patient Comments: does not take aspirin [Adult Aspirin Regimen] 81 mg tablet,delayed release (DR/EC) 81 mg PO DAILY Patient Comments: not taking multivitamin Tablet 1 tab PO DAILY Patient Comments: does not take vitamin E mixed 400 unit capsule PO Patient Comments: does not take epinephrine [EpiPen] 0.3 mg/0.3 mL auto-injector 0.3 mg IM Q4H PRN Abilify Maintena 300 mg suspension,extended rel recon 300 mg IM QMONTH Patient Comments: Not taking dont need them lisdexamfetamine [Vyvanse] 50 mg capsule 50 mg PO DAILY lorazepam [Ativan] 0.5 mg tablet 0.5 mg PO BID PRN guaifenesin [Mucinex] 600 mg tablet extended release 12hr 600 mg PO Q12H PRNQty: 10 0RF Patient Comments: not taking Medical Decision Making 47-year-old male history of schizophrenia, presents requesting assistance with finding housing as he is undomiciled. No SI no HI no delusions patient is resting comfortably calm cooperative. No signs of trauma. No signs of intoxication. Will have care management team assessed patient in the morning to determine his if there are any resources that we can help him with. 7: 18 rest comfortably no events overnight. Awaiting care management evaluation given social needs. HPI General Date/Time Provider Initiated Documentation: 04/05/23 03:35 . HPI Narrative: 47-year-old male undomiciled presents requesting assistance with finding housing. Denies his SI or HI. Feels stable on his medications. Related Data Home Medications Medication Instructions Recorded Confirmed aspirin 81 mg tablet,delayed 81 mg PO DAILY 04/24/22 03/22/23 release (Adult Aspirin Regimen) cyanocobalamin (vitamin B-12) 1,000 mcg PO DAILY 04/24/22 03/22/23 1,000 mcg capsule gabapentin 100 mg capsule 100 mg PO TID 04/24/22 03/22/23 multivitamin 1 tab PO DAILY 04/24/22 03/22/23 thiamine HCl (vitamin B1) 100 mg 100 mg PO DAILY 04/24/22 03/22/23 tablet vitamin E mixed 400 unit capsule unit PO 04/24/22 guaifenesin 600 mg tablet, 600 mg PO Q12H PRN #10 tabs 05/20/22 03/22/23 extended release 12 hr (Mucinex) aripiprazole 300 mg intramuscular 300 mg IM QMONTH 12/20/22 03/22/23 suspension,extended release (Abilify Maintena) epinephrine 0.3 mg/0.3 mL 0.3 mg IM Q4H PRN 12/20/22 03/22/23 injection, auto-injector (EpiPen) lisdexamfetamine 50 mg capsule 50 mg PO DAILY 12/20/22 03/22/23 (Vyvanse) lorazepam 0.5 mg tablet (Ativan) 0.5 mg PO BID PRN 12/20/22 03/22/23 Previous Rx's Medication Instructions Recorded guaifenesin 600 mg tablet, 600 mg PO Q12H PRN #10 tabs 05/20/22 extended release 12 hr (Mucinex) Allergies Allergy/AdvReac Type Severity Reaction Status Date / Time sildenafil [From Viagra] Allergy Severe Verified 03/22/23 09:22 bee venom protein (honey bee) Allergy Verified 03/22/23 09:22 naproxen Allergy Verified 03/22/23 09:22 prednisone Allergy Verified 03/22/23 09:22 shrimp Allergy Verified 03/22/23 09:22 vicotin Allergy Uncoded 03/22/23 09:22 healy milk AdvReac Uncoded 03/22/23 09:22 General Stated Complaint: PsychEval ARNAV: 2 Review of Systems Narrative: Review of Systems Constitutional: negative Eyes: negative ENT: negative Cardiovascular: negative Respiratory: negative Gastrointestinal: negative : negative Musculoskeletal: negative Skin: negative Neurologic: negative Psych: negative PFSH All Active Problems (Updated 03/22/23 @ 11:01 by Jayy Gilliam MD) Delusion (Acute) Leg pain (Acute) Psychiatric diagnosis deferred (Acute) Medical History Opioid abuse History of COPD Tobacco abuse Marijuana use Anxiety and depression Back pain Bronchitis Contact with contaminated hypodermic needle History of hyperglycemia Family history of thyroid disease Depression Schizophrenia Surgical History H/O thumb surgery Social History Smoking/Tobacco Use Status: Current every day Tobacco Type: cigarettes Smoking risk assessment performed?: Yes Alcohol Intake: current Alcohol Intake frequency: holidays/special occasions only Alcohol type: hard liquor Drug use: Binges Substance use type: marijuana Details: 01/04/23 Housing: homeless Exam Narrative Exam Narrative: Physical Examination General: alert, awake, cooperative, resting comfortably, no acute distress HEENT: normocephalic, atraumatic; PERRL, EOM intact, conjunctiva normal; no nasal discharge; moist mucous membranes, oral and pharyngeal mucosa normal, tolerating secretions Neck: supple, trachea midline; full ROM Chest: normal to inspection Respiratory: normal respiratory effort, speaking in full sentences, clear to auscultation, no wheezing, rales or rhonchi Cardiac: regular rate, regular rhythm, S1S2 intact, no murmurs rubs or gallops GI: abdomen soft, non-tender, non-distended; no palpable mass or hepatosplenomegaly Skin: no lesions, rashes or trauma appreciated Neuro: AAOx3, normal speech, moving all extremities Psych: Appropriate mood and affect Course Vital Signs Vital signs: Vital Signs Temperature 36.6 C 04/05/23 03:42 Pulse 103 H 04/05/23 03:42 Respiratory Rate 18 04/05/23 03:42 Blood Pressure 123/88 04/05/23 03:42 Pulse Oximetry 94 04/05/23 03:42 Temperature 36.6 C 04/05/23 03:42 Temperature Source Oral 04/05/23 03:42 Pulse 103 H 04/05/23 03:42 Respiratory Rate 18 04/05/23 03:42 Respiratory Effort Normal 04/05/23 03:47 Blood Pressure 123/88 04/05/23 03:42 Pulse Oximetry 94 04/05/23 03:42 Oxygen Delivery Method Room Air 04/05/23 03:42 Oxygen Flow Rate 0 04/05/23 03:42
--- NOTE | 2023-04-05 03:54 | NUR.NOTE ---
ED MD was evaluating PT and he states that he doesn't want a mental health eval and would like to get housing resources. Nursing Note:
--- NOTE | 2023-04-05 10:40 | W.EDPROG ---
Date of service: 04/05/23 Time of Service: 10:50 Medical Decision Making 47-year-old gentleman with history of psychosis presented this morning requesting resources for placement. Patient was excepted in signout pending case management evaluation. regional service manager has evaluated the patient and provided him with appropriate necessary resources. At this time he is not suicidal, homicidal, he is delusional and slightly paranoid but there is no indication for acute psychiatric hospitalization and is discharged in good condition. Sign Out Sign Out Data: Sign Out Comment: Undomiciled history of schizophrenia no SI no HI, stable cooperative, undomiciled requesting help finding a place to live, awaiting care management evaluation Last updated by Sam Young MD at 04/05/23 07:19 Discharge Plan Disposition Patient Disposition: Home Condition: Good Discharge Details Clinical Impression: Psychiatric diagnosis deferred Primary Care Provider: Unknown,Unknown ED Provider: Wero Kaplan Home Meds and New Rx's Prescriptions: No Action cyanocobalamin (vitamin B-12) 1,000 mcg capsule 1,000 mcg PO DAILY Patient Comments: not taking gabapentin 100 mg capsule 100 mg PO TID Patient Comments: not taking thiamine HCl (vitamin B1) 100 mg tablet 100 mg PO DAILY Patient Comments: does not take aspirin [Adult Aspirin Regimen] 81 mg tablet,delayed release (DR/EC) 81 mg PO DAILY Patient Comments: not taking multivitamin Tablet 1 tab PO DAILY Patient Comments: does not take vitamin E mixed 400 unit capsule PO Patient Comments: does not take epinephrine [EpiPen] 0.3 mg/0.3 mL auto-injector 0.3 mg IM Q4H PRN Abilify Maintena 300 mg suspension,extended rel recon 300 mg IM QMONTH Patient Comments: Not taking dont need them lisdexamfetamine [Vyvanse] 50 mg capsule 50 mg PO DAILY lorazepam [Ativan] 0.5 mg tablet 0.5 mg PO BID PRN guaifenesin [Mucinex] 600 mg tablet extended release 12hr 600 mg PO Q12H PRNQty: 10 0RF Patient Comments: not taking Discharge Instructions Additional Instructions: utilize resources as provided
[2023-04-05 10:56] VITALS: BP 123/88; PULSE 88; RESP 18; TEMP 36.6; O2SAT 94
--- NOTE | 2023-04-05 16:33 | CMPROGNOTE_ITS ---
Date of service: 04/05/23 Time of Service: 16:33 Care Management Progress Note Progress Note Text Progress Note Text: CM was asked by ED provider to evaluate patient. Jose Alfredo is currently homeless and frequently presents to the ED seeking housing. He was seen in the ED last week after being found walking around naked. Jose Alfredo has a known mental health history and has been delusional. Last week he was referred to [facility] and was provided with food, clothing and shoes from [employer]. He was advised to either call [facility] or present to their office for assistance with housing. CM discussed the with Jose Alfredo again today and informed him that the only option for housing was through. [facility]. CM offered to provide transportation to [facility] and Jose Alfredo initially agreed. A short time later he decided to leave the ED before transport arrived. As he was being discharged anyway, it was not considered AMA.
== END 2023-04-05 11:03 | disposition home or self-care (01) ==
PROVIDERS: Emergency Provider Emergency Medicine
DX: F32.A Depression, unspecified (principal); F20.9 Schizophrenia, unspecified; F17.210 Nicotine dependence, cigarettes, uncomplicated; Z79.82 Long term (current) use of aspirin; Z59.02 Unsheltered homelessness
CPT/HCPCS: 123; 99284; 00123

== ENCOUNTER 2023-04-05 17:32 | Emergency (ER) | payer MEDICARE, MEDICAID, SELFPAY ==
[2023-04-05 17:36] VITALS: BP 116/80; PULSE 117; RESP 18; TEMP 36.6; O2SAT 96
[2023-04-05 17:42] VITALS: RESP 18
--- NOTE | 2023-04-05 17:44 | W.ED.GENAD ---
Discharge Plan Disposition Patient Disposition: Left Without Being Seen Discharge Details Chief Complaint: GenMedical Primary Care Provider: Unknown,Unknown ED Provider: Vernon Fisher Home Meds and New Rx's Prescriptions: No Action cyanocobalamin (vitamin B-12) 1,000 mcg capsule 1,000 mcg PO DAILY Patient Comments: not taking gabapentin 100 mg capsule 100 mg PO TID Patient Comments: not taking thiamine HCl (vitamin B1) 100 mg tablet 100 mg PO DAILY Patient Comments: does not take aspirin [Adult Aspirin Regimen] 81 mg tablet,delayed release (DR/EC) 81 mg PO DAILY Patient Comments: not taking multivitamin Tablet 1 tab PO DAILY Patient Comments: does not take vitamin E mixed 400 unit capsule PO Patient Comments: does not take epinephrine [EpiPen] 0.3 mg/0.3 mL auto-injector 0.3 mg IM Q4H PRN Abilify Maintena 300 mg suspension,extended rel recon 300 mg IM QMONTH Patient Comments: Not taking dont need them lisdexamfetamine [Vyvanse] 50 mg capsule 50 mg PO DAILY lorazepam [Ativan] 0.5 mg tablet 0.5 mg PO BID PRN guaifenesin [Mucinex] 600 mg tablet extended release 12hr 600 mg PO Q12H PRNQty: 10 0RF Patient Comments: not taking Medical Decision Making Patient was triaged by nursing staff, and was here for a total of 11 minutes. When I was going out to meet, see, and assess the patient he left the emergency department prior to me getting to his room and being seen. Security informed us of this. Uncertain as to why he left. He had no homicidal or suicidal ideations on triage. He did inform the triage nurse that he was homeless. He did not have specific complaints otherwise. Of note he had already been seen earlier today and had been sent to [facility], had received clothing and resources, had previously been given food earlier in the day, and had been seen and managed by case management with a robust outpatient plan. HPI General Date/Time Provider Initiated Documentation: 04/05/23 17:44. HPI Narrative: Patient was triaged by nursing staff, and was here for a total of 11 minutes. When I was going out to meet, see, and assess the patient he left the emergency department prior to me getting to his room and being seen. Security informed us of this. Uncertain as to why he left. He had no homicidal or suicidal ideations on triage. He did inform the triage nurse that he was homeless. He did not have specific complaints otherwise. Of note he had already been seen earlier today and had been sent to [facility], had received clothing and resources, had previously been given food earlier in the day, and had been seen and managed by case management with a robust outpatient plan. Related Data Home Medications Medication Instructions Recorded Confirmed aspirin 81 mg tablet,delayed 81 mg PO DAILY 04/24/22 03/22/23 release (Adult Aspirin Regimen) cyanocobalamin (vitamin B-12) 1,000 mcg PO DAILY 04/24/22 03/22/23 1,000 mcg capsule gabapentin 100 mg capsule 100 mg PO TID 04/24/22 03/22/23 multivitamin 1 tab PO DAILY 04/24/22 03/22/23 thiamine HCl (vitamin B1) 100 mg 100 mg PO DAILY 04/24/22 03/22/23 tablet vitamin E mixed 400 unit capsule unit PO 04/24/22 guaifenesin 600 mg tablet, 600 mg PO Q12H PRN #10 tabs 05/20/22 03/22/23 extended release 12 hr (Mucinex) aripiprazole 300 mg intramuscular 300 mg IM QMONTH 12/20/22 03/22/23 suspension,extended release (Abilify Maintena) epinephrine 0.3 mg/0.3 mL 0.3 mg IM Q4H PRN 12/20/22 03/22/23 injection, auto-injector (EpiPen) lisdexamfetamine 50 mg capsule 50 mg PO DAILY 12/20/22 03/22/23 (Vyvanse) lorazepam 0.5 mg tablet (Ativan) 0.5 mg PO BID PRN 12/20/22 03/22/23 Previous Rx's Medication Instructions Recorded guaifenesin 600 mg tablet, 600 mg PO Q12H PRN #10 tabs 05/20/22 extended release 12 hr (Mucinex) Allergies Allergy/AdvReac Type Severity Reaction Status Date / Time sildenafil [From Viagra] Allergy Severe Verified 04/05/23 17:39 bee venom protein (honey bee) Allergy Verified 04/05/23 17:39 naproxen Allergy Verified 04/05/23 17:39 prednisone Allergy Verified 04/05/23 17:39 shrimp Allergy Verified 04/05/23 17:39 vicotin Allergy Uncoded 04/05/23 17:39 healy milk AdvReac Uncoded 04/05/23 17:39 General Stated Complaint: GenMedical ARNAV: 4 PFSH All Active Problems (Updated 04/05/23 @ 10:48 by Wero Kaplan MD) Delusion (Acute) Leg pain (Acute) Psychiatric diagnosis deferred (Acute) Medical History Opioid abuse History of COPD Tobacco abuse Marijuana use Anxiety and depression Back pain Bronchitis Contact with contaminated hypodermic needle History of hyperglycemia Family history of thyroid disease Depression Schizophrenia Surgical History H/O thumb surgery Social History Smoking/Tobacco Use Status: Current every day Tobacco Type: cigarettes Smoking risk assessment performed?: Yes Alcohol Intake: current Alcohol Intake frequency: holidays/special occasions only Alcohol type: hard liquor Drug use: Binges Substance use type: marijuana Details: 01/04/23 Housing: homeless Course Vital Signs Vital signs: Vital Signs Temperature 36.6 C 04/05/23 17:36 Pulse 117 H 04/05/23 17:36 Respiratory Rate 18 04/05/23 17:36 Blood Pressure 116/80 04/05/23 17:36 Pulse Oximetry 96 04/05/23 17:36 Temperature 36.6 C 04/05/23 17:36 Temperature Source Temporal Artery Scan 04/05/23 17:36 Pulse 117 H 04/05/23 17:36 Respiratory Rate 18 04/05/23 17:42 Respiratory Effort Normal, Non-Labored 04/05/23 17:42 Respiratory Depth Normal 04/05/23 17:42 Respiratory Pattern Normal 04/05/23 17:42 Blood Pressure 116/80 04/05/23 17:36 Blood Pressure Position Sitting 04/05/23 17:36 Pulse Oximetry 96 04/05/23 17:36 Oxygen Delivery Method Room Air 04/05/23 17:36 Oxygen Flow Rate 0 04/05/23 17:36
== END 2023-04-05 17:53 | disposition left against medical advice (07) ==
LOC: ER 18:59
PROVIDERS: Emergency Provider Student in an Organized Health Care Education/Training Program
DX: Z53.21 Procedure and treatment not carried out due to patient leaving prior to being seen by health care provider (principal)

== ENCOUNTER 2023-04-07 11:13 | Emergency (ER) | payer MEDICARE, MEDICAID, SELFPAY ==
[2023-04-07 11:33] VITALS: BP 127/87; PULSE 97; RESP 14; TEMP 36.3; O2SAT 99
--- NOTE | 2023-04-07 13:11 | W.EVENT ---
Date of service: 04/07/23 Time of Service: 13:12 Event Note: I did not see patient in the emergency department, entered in error. Time Spent with Patient Time spent in critical care(minutes): 0 Time Spent Included: Other
--- NOTE | 2023-04-09 09:19 | W.ED.FU ---
Follow Up Plan: I did not evaluate this patient. Patient presented to the ER on 04/07/23. He was seen by nursing in triage. I went to see the patient shortly after triage and he had eloped. Nurse stated no concerns for life threatening illness based on triage.
== END 2023-04-07 11:54 ==
LOC: ER 11:39
PROVIDERS: Emergency Provider Student in an Organized Health Care Education/Training Program
DX: Z53.21 Procedure and treatment not carried out due to patient leaving prior to being seen by health care provider (principal)
CPT/HCPCS: 00123

== ENCOUNTER 2023-04-11 10:47 | Emergency (ER) | payer MEDICARE, MEDICAID, SELFPAY ==
[2023-04-11 10:51] VITALS: BP 112/71; PULSE 75; RESP 20; TEMP 37; O2SAT 100
--- NOTE | 2023-04-11 10:52 | ED.GENADUL_ITS ---
Discharge Plan Disposition Patient Disposition: Left Without Being Seen Discharge Details Primary Care Provider: Unknown,Unknown ED Provider: Shabana Guadalupe Discharge Data Discharge Date/Time-TO BE ENTERED AT DEPARTURE: 04/11/23 10:58 Discharge Physician: Shabana Guadalupe Medical Decision Making This is a 47-year-old male with a history of delusions who was dropped off by his mother who told the nursing staff that he needed to be admitted to the [facility]. The patient is denying any homicidal or suicidal ideation and eloped prior to any further testing. I have left a message on his mother's voicemail explaining that the patient has eloped Differential Diagnosis Differential Diagnosis: Delusions, unhoused, Medical Records Medical records reviewed: Yes I reviewed the patient's medical records. HPI General Date/Time Provider Initiated Documentation: 04/11/23 10:48 . Limitations to Documentation: other (The patient was refusing to give us any history.) . Information obtained by: patient . HPI Narrative: Time seen was 10:52 AM. The patient was seen initially in triage then in room 9. Apparently the patient was brought in by his mother, Elin [phone]. His mother left while the patient was in triage. I called and it went directly to voicemail. While leaving a voicemail message the patient left. He would not tell me why he was here but said he did not have any pain and did not feel like hurting himself or anyone else. He was reluctant to let me examine him. He spoke very few words but had normal phonation Related Data Home Medications Medication Instructions Recorded Confirmed aspirin 81 mg tablet,delayed 81 mg PO DAILY 04/24/22 03/22/23 release (Adult Aspirin Regimen) cyanocobalamin (vitamin B-12) 1,000 mcg PO DAILY 04/24/22 03/22/23 1,000 mcg capsule gabapentin 100 mg capsule 100 mg PO TID 04/24/22 03/22/23 multivitamin 1 tab PO DAILY 04/24/22 03/22/23 thiamine HCl (vitamin B1) 100 mg 100 mg PO DAILY 04/24/22 03/22/23 tablet vitamin E mixed 400 unit capsule unit PO 04/24/22 guaifenesin 600 mg tablet, 600 mg PO Q12H PRN #10 tabs 05/20/22 03/22/23 extended release 12 hr (Mucinex) aripiprazole 300 mg intramuscular 300 mg IM QMONTH 12/20/22 03/22/23 suspension,extended release (Abilify Maintena) epinephrine 0.3 mg/0.3 mL 0.3 mg IM Q4H PRN 12/20/22 03/22/23 injection, auto-injector (EpiPen) lisdexamfetamine 50 mg capsule 50 mg PO DAILY 12/20/22 03/22/23 (Vyvanse) lorazepam 0.5 mg tablet (Ativan) 0.5 mg PO BID PRN 12/20/22 03/22/23 Previous Rx's Medication Instructions Recorded guaifenesin 600 mg tablet, 600 mg PO Q12H PRN #10 tabs 05/20/22 extended release 12 hr (Mucinex) Allergies Allergy/AdvReac Type Severity Reaction Status Date / Time sildenafil [From Viagra] Allergy Severe Verified 04/11/23 14:05 bee venom protein (honey bee) Allergy Verified 04/11/23 14:05 naproxen Allergy Verified 04/11/23 14:05 prednisone Allergy Verified 04/11/23 14:05 shrimp Allergy Verified 04/11/23 14:05 vicotin Allergy Uncoded 04/11/23 14:05 healy milk AdvReac Uncoded 04/11/23 14:05 General ARNAV: 3 Review of Systems Narrative: Unobtainable because the patient refused to give us any history. Unobtainable due to mental condition and Unobtainable due to mental status PFSH All Active Problems (Updated 04/11/23 @ 11:05 by Shabana Guadalupe MD) Delusion (Acute) Leg pain (Acute) Psychiatric diagnosis deferred (Acute) Medical History Opioid abuse History of COPD Tobacco abuse Marijuana use Anxiety and depression Back pain Bronchitis Contact with contaminated hypodermic needle History of hyperglycemia Family history of thyroid disease Depression Schizophrenia Surgical History H/O thumb surgery Social History Smoking/Tobacco Use Status: Current every day Tobacco Type: cigarettes Smoking risk assessment performed?: Yes Alcohol Intake: current Alcohol Intake frequency: holidays/special occasions only Alcohol type: hard liquor Drug use: Binges Substance use type: marijuana Details: 01/04/23 Housing: homeless Exam Narrative Exam Narrative: The patient appears slightly disheveled. He was normotensive. He was not tachycardic tachypneic or febrile. His room air O2 sat was normal at 100%. He had normal phonation and a steady gait. He did not appear clinically intoxicated but was withdrawn and would not answer questions. His pupils were reactive to light and extraocular muscles were intact. He was nonicteric. His lungs are clear to auscultation without wheezing rales or rhonchi. No retractions. His heart had a regular rate and rhythm. I cannot appreciate a murmur rub or gallop. He was moving all of his extremities normally. There were no gross focal neurologic deficits but he did not agree to getting undressed and having me do a further exam. While leaving a voicemail for his mother to obtain further history the patient left without any further tests or a more detailed exam. Course After the patient left his mother called me and I spoke with her. I had called her for further history and she called me back. She tells me that he is on housed and she states that talking to him is like talking to wall. She understands that we cannot keep him here against his will if he is not a threat to himself or anyone else. I shared her concerns and advised her to bring him back for evaluation if needed.
== END 2023-04-11 10:58 | disposition left against medical advice (07) ==
LOC: ER 10:52
PROVIDERS: Emergency Provider Emergency Medicine Emergency Medical Services
DX: F22 Delusional disorders (principal); F17.210 Nicotine dependence, cigarettes, uncomplicated; Z53.21 Procedure and treatment not carried out due to patient leaving prior to being seen by health care provider

== ENCOUNTER 2023-04-11 13:59 | Emergency (ER) | payer MEDICARE, MEDICAID, SELFPAY ==
[2023-04-11 14:01] VITALS: BP 102/72; PULSE 89; RESP 20; TEMP 36.5; O2SAT 100
--- NOTE | 2023-04-11 14:17 | ED.GENADUL_ITS ---
Discharge Plan Disposition Patient Disposition: Left Without Being Seen Discharge Details Chief Complaint: GenMedical Primary Care Provider: Unknown,Unknown ED Provider: Mariajose Gabriel Home Meds and New Rx's Prescriptions: No Action cyanocobalamin (vitamin B-12) 1,000 mcg capsule 1,000 mcg PO DAILY Patient Comments: not taking gabapentin 100 mg capsule 100 mg PO TID Patient Comments: not taking thiamine HCl (vitamin B1) 100 mg tablet 100 mg PO DAILY Patient Comments: does not take aspirin [Adult Aspirin Regimen] 81 mg tablet,delayed release (DR/EC) 81 mg PO DAILY Patient Comments: not taking multivitamin Tablet 1 tab PO DAILY Patient Comments: does not take vitamin E mixed 400 unit capsule PO Patient Comments: does not take epinephrine [EpiPen] 0.3 mg/0.3 mL auto-injector 0.3 mg IM Q4H PRN Abilify Maintena 300 mg suspension,extended rel recon 300 mg IM QMONTH Patient Comments: Not taking dont need them lisdexamfetamine [Vyvanse] 50 mg capsule 50 mg PO DAILY lorazepam [Ativan] 0.5 mg tablet 0.5 mg PO BID PRN guaifenesin [Mucinex] 600 mg tablet extended release 12hr 600 mg PO Q12H PRNQty: 10 0RF Patient Comments: not taking Medical Decision Making I did not evaluate this patient. Presented to the ER on 04/11/23 at approximately 2pm. Triaged with cc of want to get warm. Per nursing staff, eloped directly from triage roughly 5 minutes after arrival. No acute concerns for severe medical illness identified by nursing on triage and no acute psychiatric concerns verbalized by patient during triage. HPI General Date/Time Provider Initiated Documentation: 04/11/23 14:11 . Related Data Home Medications Medication Instructions Recorded Confirmed aspirin 81 mg tablet,delayed 81 mg PO DAILY 04/24/22 03/22/23 release (Adult Aspirin Regimen) cyanocobalamin (vitamin B-12) 1,000 mcg PO DAILY 04/24/22 03/22/23 1,000 mcg capsule gabapentin 100 mg capsule 100 mg PO TID 04/24/22 03/22/23 multivitamin 1 tab PO DAILY 04/24/22 03/22/23 thiamine HCl (vitamin B1) 100 mg 100 mg PO DAILY 04/24/22 03/22/23 tablet vitamin E mixed 400 unit capsule unit PO 04/24/22 guaifenesin 600 mg tablet, 600 mg PO Q12H PRN #10 tabs 05/20/22 03/22/23 extended release 12 hr (Mucinex) aripiprazole 300 mg intramuscular 300 mg IM QMONTH 12/20/22 03/22/23 suspension,extended release (Abilify Maintena) epinephrine 0.3 mg/0.3 mL 0.3 mg IM Q4H PRN 12/20/22 03/22/23 injection, auto-injector (EpiPen) lisdexamfetamine 50 mg capsule 50 mg PO DAILY 12/20/22 03/22/23 (Vyvanse) lorazepam 0.5 mg tablet (Ativan) 0.5 mg PO BID PRN 12/20/22 03/22/23 Previous Rx's Medication Instructions Recorded guaifenesin 600 mg tablet, 600 mg PO Q12H PRN #10 tabs 05/20/22 extended release 12 hr (Mucinex) Allergies Allergy/AdvReac Type Severity Reaction Status Date / Time sildenafil [From Viagra] Allergy Severe Verified 04/11/23 14:05 bee venom protein (honey bee) Allergy Verified 04/11/23 14:05 naproxen Allergy Verified 04/11/23 14:05 prednisone Allergy Verified 04/11/23 14:05 shrimp Allergy Verified 04/11/23 14:05 vicotin Allergy Uncoded 04/11/23 14:05 healy milk AdvReac Uncoded 04/11/23 14:05 General Stated Complaint: GenMedical ARNAV: 4 PFSH All Active Problems (Updated 04/11/23 @ 11:05 by Shabana Guadalupe MD) Delusion (Acute) Leg pain (Acute) Psychiatric diagnosis deferred (Acute) Medical History Opioid abuse History of COPD Tobacco abuse Marijuana use Anxiety and depression Back pain Bronchitis Contact with contaminated hypodermic needle History of hyperglycemia Family history of thyroid disease Depression Schizophrenia Surgical History H/O thumb surgery Social History Smoking/Tobacco Use Status: Current every day Tobacco Type: cigarettes Smoking risk assessment performed?: Yes Alcohol Intake: current Alcohol Intake frequency: holidays/special occasions only Alcohol type: hard liquor Drug use: Binges Substance use type: marijuana Details: 01/04/23 Housing: homeless Course Vital Signs Vital signs: Vital Signs Temperature 36.5 C 04/11/23 14:01 Pulse 89 04/11/23 14:01 Respiratory Rate 20 04/11/23 14:01 Blood Pressure 102/72 04/11/23 14:01 Pulse Oximetry 100 04/11/23 14:01 Temperature 36.5 C 04/11/23 14:01 Temperature Source Skin 04/11/23 14:01 Pulse 89 04/11/23 14:01 Respiratory Rate 20 04/11/23 14:01 Blood Pressure 102/72 04/11/23 14:01 Blood Pressure Position Sitting 04/11/23 14:01 Pulse Oximetry 100 04/11/23 14:01 Oxygen Delivery Method Room Air 04/11/23 14:01 Oxygen Flow Rate 0 04/11/23 14:01 Pain Level 0 04/11/23 14:01
== END 2023-04-11 17:03 | disposition left against medical advice (07) ==
PROVIDERS: Emergency Provider Student in an Organized Health Care Education/Training Program
DX: Z53.21 Procedure and treatment not carried out due to patient leaving prior to being seen by health care provider (principal)

== ENCOUNTER 2023-04-11 16:38 | Emergency (ER) | payer MEDICARE, MEDICAID, SELFPAY ==
--- NOTE | 2023-04-11 16:46 | W.ED.GENAD ---
Discharge Plan Discharge Details Chief Complaint: PsychEval Primary Care Provider: Unknown,Unknown ED Provider: Mariajose Gabriel Home Meds and New Rx's Prescriptions: No Action cyanocobalamin (vitamin B-12) 1,000 mcg capsule 1,000 mcg PO DAILY Patient Comments: not taking gabapentin 100 mg capsule 100 mg PO TID Patient Comments: not taking thiamine HCl (vitamin B1) 100 mg tablet 100 mg PO DAILY Patient Comments: does not take aspirin [Adult Aspirin Regimen] 81 mg tablet,delayed release (DR/EC) 81 mg PO DAILY Patient Comments: not taking multivitamin Tablet 1 tab PO DAILY Patient Comments: does not take vitamin E mixed 400 unit capsule PO Patient Comments: does not take epinephrine [EpiPen] 0.3 mg/0.3 mL auto-injector 0.3 mg IM Q4H PRN Abilify Maintena 300 mg suspension,extended rel recon 300 mg IM QMONTH Patient Comments: Not taking dont need them lisdexamfetamine [Vyvanse] 50 mg capsule 50 mg PO DAILY lorazepam [Ativan] 0.5 mg tablet 0.5 mg PO BID PRN guaifenesin [Mucinex] 600 mg tablet extended release 12hr 600 mg PO Q12H PRNQty: 10 0RF Patient Comments: not taking Medical Decision Making 47yo M with schizophrenia, COPD, presenting for worsening disorganization. History from patient, mother, and mental health worker. Multiple presentations with elopement to this ED in the past 24 hours, most recently after being brought in by police. This time arrives in the company of his mother. She reports that he has been more disorganized, not sleeping, not taking his medications, walking out in the cold not dressed for the weather. Jessica Rick from had earlier contacted the ED to relay the following information: he has been more paranoid and disorganized lately, requests that he receive a mental health screening should he present to the ED. Vital signs and physical exam reassuring. He denies SI/HI/AH/VH, is calm though somewhat flat on exam, minimally participatory in history and exam. Evaluated by [facility] who recommended voluntary inpatient treatment; they do not feel he meets involuntary criteria should he choose to leave and I concur. Medically cleared, SMART tool completed. Has not been taking his home medications and declines here; will offer ativan prn. Boarding in the ED pending placement. Signed out to overnight physician. HPI General Mode of arrival: ambulatory. Date/Time Provider Initiated Documentation: 04/11/23 16:44. Limitations to Documentation: no limitations. Information obtained by: patient and family. HPI Narrative: 47yo M with schizophrenia, COPD, presenting for worsening disorganization. Multiple presentations with elopement to this ED in the past 24 hours, most recently after being brought in by police. This time arrives in the company of his mother. She reports that he has been more disorganized, not sleeping, not taking his medications, walking out in the cold not dressed for the weather. Jessica Rick from had earlier contacted the ED to relay the following information: he has been more paranoid and disorganized lately, requests that he receive a mental health screening should he present to the ED. He denies any SI or HI, mother has not heard him make any statements of such. Mr. Maldonado declines to share much information with me, does state he is willing to talk with someone from [facility]. Denies physical complaints. Related Data Home Medications Medication Instructions Recorded Confirmed aspirin 81 mg tablet,delayed 81 mg PO DAILY 04/24/22 03/22/23 release (Adult Aspirin Regimen) cyanocobalamin (vitamin B-12) 1,000 mcg PO DAILY 04/24/22 03/22/23 1,000 mcg capsule gabapentin 100 mg capsule 100 mg PO TID 04/24/22 03/22/23 multivitamin 1 tab PO DAILY 04/24/22 03/22/23 thiamine HCl (vitamin B1) 100 mg 100 mg PO DAILY 04/24/22 03/22/23 tablet vitamin E mixed 400 unit capsule unit PO 04/24/22 guaifenesin 600 mg tablet, 600 mg PO Q12H PRN #10 tabs 05/20/22 03/22/23 extended release 12 hr (Mucinex) aripiprazole 300 mg intramuscular 300 mg IM QMONTH 12/20/22 03/22/23 suspension,extended release (Abilify Maintena) epinephrine 0.3 mg/0.3 mL 0.3 mg IM Q4H PRN 12/20/22 03/22/23 injection, auto-injector (EpiPen) lisdexamfetamine 50 mg capsule 50 mg PO DAILY 12/20/22 03/22/23 (Vyvanse) lorazepam 0.5 mg tablet (Ativan) 0.5 mg PO BID PRN 12/20/22 03/22/23 Previous Rx's Medication Instructions Recorded guaifenesin 600 mg tablet, 600 mg PO Q12H PRN #10 tabs 05/20/22 extended release 12 hr (Mucinex) Allergies Allergy/AdvReac Type Severity Reaction Status Date / Time sildenafil [From Viagra] Allergy Severe Verified 04/11/23 14:05 bee venom protein (honey bee) Allergy Verified 04/11/23 14:05 naproxen Allergy Verified 04/11/23 14:05 prednisone Allergy Verified 04/11/23 14:05 shrimp Allergy Verified 04/11/23 14:05 vicotin Allergy Uncoded 04/11/23 14:05 healy milk AdvReac Uncoded 04/11/23 14:05 General ARNAV: 4 Review of Systems Narrative: see HPI PFSH All Active Problems (Updated 04/11/23 @ 11:05 by Shabana Guadalupe MD) Delusion (Acute) Leg pain (Acute) Psychiatric diagnosis deferred (Acute) Medical History Opioid abuse History of COPD Tobacco abuse Marijuana use Anxiety and depression Back pain Bronchitis Contact with contaminated hypodermic needle History of hyperglycemia Family history of thyroid disease Depression Schizophrenia Surgical History H/O thumb surgery Social History Smoking/Tobacco Use Status: Current every day Tobacco Type: cigarettes Smoking risk assessment performed?: Yes Alcohol Intake: current Alcohol Intake frequency: holidays/special occasions only Alcohol type: hard liquor Drug use: Binges Substance use type: marijuana Details: 01/04/23 Housing: homeless Exam Narrative Exam Narrative: General: Alert, well appearing, well nourished, in no acute distress. Head: Normocephalic, atraumatic Neck: Trachea midline, Neck supple. Cardiac: RRR, no murmurs appreciated Resp: No respiratory distress. CTAB. Abd: Soft, non-distended, nontender Extremities: No deformities. No peripheral edema. Abrasion to left foot. Neurologic: GCS 15. Moves all extremities freely against gravity Psych: Calm, minimally participatory with history and exam. Mood fine, affect flat. Speech with normal volume, rate, rythym and tone. Denies SI/HI/AH/VH. Does not appear to be responding to internal stimuli. No psychomotor slowing or agitation. Sign Out Sign Out Data: Sign Out Comment: 47y M, decompensated schizophrenia, disorganized. No behavioral issues. Not SI or HI. formerly [facility] inpatient treatment. Voluntary. Pending placement. Last updated by Mariajose Gabriel MD at 04/11/23 23:24
[2023-04-11 16:58] VITALS: BP 112/72; PULSE 70; RESP 18; O2SAT 98
--- NOTE | 2023-04-12 00:24 | ED.PROG_ITS ---
Date of service: 04/12/23 Time of Service: 00:24 Medical Decision Making I received signout on this 47-year-old male with history of delusions in the emergency department voluntarily awaiting placement. He has had no acute behavioral issues last shift. He has not been taking his home medications. He has an as needed lorazepam ordered. We will update documentation as clinically warranted and sign patient out to the oncoming daytime provider. I ordered a morning COVID test to be sent at this patient. 6:18 AM No active behavioral issues last shift. We will sign the patient out to the oncoming daytime provider pending COVID swab and behavioral health placement. Patient will also require a temperature when he wakes up. Sign Out Sign Out Data: Sign Out Comment: 47y M, decompensated schizophrenia, disorganized. No behavioral issues. Not SI or HI. [facility] reccs inpatient treatment. Voluntary. Pending placement. Last updated by Mariajose Gabriel MD at 04/11/23 23:24 Discharge Plan Discharge Details Chief Complaint: PsychEval Primary Care Provider: Unknown,Unknown ED Provider: Johny Martin [place] Meds and New Rx's Prescriptions: No Action cyanocobalamin (vitamin B-12) 1,000 mcg capsule 1,000 mcg PO DAILY Patient Comments: not taking gabapentin 100 mg capsule 100 mg PO TID Patient Comments: not taking thiamine HCl (vitamin B1) 100 mg tablet 100 mg PO DAILY Patient Comments: does not take aspirin [Adult Aspirin Regimen] 81 mg tablet,delayed release (DR/EC) 81 mg PO DAILY Patient Comments: not taking multivitamin Tablet 1 tab PO DAILY Patient Comments: does not take vitamin E mixed 400 unit capsule PO Patient Comments: does not take epinephrine [EpiPen] 0.3 mg/0.3 mL auto-injector 0.3 mg IM Q4H PRN Abilify Maintena 300 mg suspension,extended rel recon 300 mg IM QMONTH Patient Comments: Not taking dont need them lisdexamfetamine [Vyvanse] 50 mg capsule 50 mg PO DAILY lorazepam [Ativan] 0.5 mg tablet 0.5 mg PO BID PRN guaifenesin [Mucinex] 600 mg tablet extended release 12hr 600 mg PO Q12H PRNQty: 10 0RF Patient Comments: not taking
[2023-04-12] MEDS: Droperidol 5 MG/2 ML VIAL IM (09:52)
[2023-04-12 09:54] VITALS: BP 99/62; PULSE 63; RESP 14; O2SAT 97
--- NOTE | 2023-04-12 10:46 | ED.PROG_ITS ---
Date of service: 04/12/23 Time of Service: 10:46 Medical Decision Making Patient was signed out to me pending placement voluntarily. Patient has agreed to go to [facility]. He did take droperidol today voluntarily for agitation. Patient is otherwise stable at this time. He continues to refuse vital signs and COVID swab. Discussed the case with Dr. Steen at [facility], she accepts patient for transfer. I have extensively reviewed the treatment plan with the patient. I have addressed all patient concerns at this time. I have also discussed the plan with the admitting physician and they agree with the current assessment and plan and have agreed to assume responsibility for the patient. All parties demonstrate verbal understanding and agreement with our assessment and plan at this time. The documentation in this chart was dictated using [employer] dictation software. Please excuse any dictation errors. At time of transfer the patient was reassessed and continued to demonstrate No signs of acute respiratory distress requiring intubation, hemodynamic instability requiring pressor support, or rapidly declining mental status. Sign Out Sign Out Data: Sign Out Comment: 47y M, decompensated schizophrenia, disorganized. No behavioral issues. Not SI or HI. [facility]ly [facility], later [facility] inpatient treatment. Voluntary. Pending placement. Last updated by Mariajose Gabriel MD at 04/11/23 23:24 Sign Out Comment: Medically cleared decompensated schizophrenic. Not taking medications. As needed lorazepam ordered. Voluntary. Pending placement. Follow-up items: 1. Obtain temperature and 2. COVID swab for placement. Last updated by Johny Martin MD at 04/12/23 06:20 Discharge Plan Disposition Patient Disposition: Psychiatric Hospital/Unit Specific Psychiatric Facility: [facility] Discharge Details Chief Complaint: PsychEval Clinical Impression: Schizophrenia Primary Care Provider: Unknown,Unknown ED Provider: Vernon Fisher Home Meds and New Rx's Prescriptions: No Action cyanocobalamin (vitamin B-12) 1,000 mcg capsule 1,000 mcg PO DAILY Patient Comments: not taking gabapentin 100 mg capsule 100 mg PO TID Patient Comments: not taking thiamine HCl (vitamin B1) 100 mg tablet 100 mg PO DAILY Patient Comments: does not take aspirin [Adult Aspirin Regimen] 81 mg tablet,delayed release (DR/EC) 81 mg PO DAILY Patient Comments: not taking multivitamin Tablet 1 tab PO DAILY Patient Comments: does not take vitamin E mixed 400 unit capsule PO Patient Comments: does not take epinephrine [EpiPen] 0.3 mg/0.3 mL auto-injector 0.3 mg IM Q4H PRN Abilify Maintena 300 mg suspension,extended rel recon 300 mg IM QMONTH Patient Comments: Not taking dont need them lisdexamfetamine [Vyvanse] 50 mg capsule 50 mg PO DAILY lorazepam [Ativan] 0.5 mg tablet 0.5 mg PO BID PRN guaifenesin [Mucinex] 600 mg tablet extended release 12hr 600 mg PO Q12H PRNQty: 10 0RF Patient Comments: not taking
== END 2023-04-12 13:09 ==
PROVIDERS: Emergency Provider Student in an Organized Health Care Education/Training Program
DX: F20.1 Disorganized schizophrenia (principal); F17.210 Nicotine dependence, cigarettes, uncomplicated; Z91.148 Patient's other noncompliance with medication regimen for other reason; Z79.82 Long term (current) use of aspirin; Z79.899 Other long term (current) drug therapy
CPT/HCPCS: 00123; 87635; 96372; 99285; J1790

== ENCOUNTER 2023-06-11 19:12 | Emergency (ER) | payer MEDICARE, MEDICAID, SELFPAY ==
--- NOTE | 2023-06-11 19:14 | ED.GENADUL_ITS ---
HPI General ARNAV: 3 Date/Time Provider Initiated Documentation: 06/11/23 19:13. HPI Narrative: MDM Chronic conditions affecting the care of the patient: [] History obtained from an outside historian: [] External record review: [] [Diagnostic interpretations performed by me: Per my independent interpretation chest x-ray shows: Per my independent interpretation EKG shows: ]Medications: [] Social determinants of health affecting disposition: [] Management discussed with: [] Treatment/interventions considered: [] Response to therapies provided: [] HPI [ ] Exam General: Well-appearing in no acute distress speaking in complete sentences. Head: Normocephalic, atraumatic. Eye:[Pupils equal, round reactive to light.] Extraocular eye movements intact. No conjunctival injection. No scleral icterus. Ear, nose, mouth, throat: Grossly normal inspection. Normal voice, handling se cretions normally. Neck: Trachea midline. Cardiovascular: Well-perfused distal extremities. Respiratory: Nonlabored respiration. Gastrointestinal: Nondistended abdomen. Musculoskeletal: No edema. Moving all 4 extremities spontaneously. Skin: Normal for age and race, grossly normal temperature and turgor. No acute rash. Neurologic: Alert and appropriate, no apparent acute deficits. Psychiatric: Mood and manner are appropriate. Grooming and personal hygiene are appropriate. Related Data Home Medications Medication Instructions Recorded Confirmed aspirin 81 mg tablet,delayed 81 mg PO DAILY 04/24/22 03/22/23 release (Adult Aspirin Regimen) cyanocobalamin (vitamin B-12) 1,000 mcg PO DAILY 04/24/22 03/22/23 1,000 mcg capsule gabapentin 100 mg capsule 100 mg PO TID 04/24/22 03/22/23 multivitamin 1 tab PO DAILY 04/24/22 03/22/23 thiamine HCl (vitamin B1) 100 mg 100 mg PO DAILY 04/24/22 03/22/23 tablet vitamin E mixed 400 unit capsule unit PO 04/24/22 guaifenesin 600 mg tablet, 600 mg PO Q12H PRN #10 tabs 05/20/22 03/22/23 extended release 12 hr (Mucinex) aripiprazole 300 mg intramuscular 300 mg IM QMONTH 12/20/22 03/22/23 suspension,extended release (Abilify Maintena) epinephrine 0.3 mg/0.3 mL 0.3 mg IM Q4H PRN 12/20/22 03/22/23 injection, auto-injector (EpiPen) lisdexamfetamine 50 mg capsule 50 mg PO DAILY 12/20/22 03/22/23 (Vyvanse) lorazepam 0.5 mg tablet (Ativan) 0.5 mg PO BID PRN 12/20/22 03/22/23 Previous Rx's Medication Instructions Recorded guaifenesin 600 mg tablet, 600 mg PO Q12H PRN #10 tabs 05/20/22 extended release 12 hr (Mucinex) Allergies Allergy/AdvReac Type Severity Reaction Status Date / Time sildenafil [From Viagra] Allergy Severe Verified 04/11/23 14:05 bee venom protein (honey bee) Allergy Verified 04/11/23 14:05 naproxen Allergy Verified 04/11/23 14:05 prednisone Allergy Verified 04/11/23 14:05 shrimp Allergy Verified 04/11/23 14:05 vicotin Allergy Uncoded 04/11/23 14:05 healy milk AdvReac Uncoded 04/11/23 14:05 PFSH All Active Problems (Updated 05/13/23 @ 00:04 by JANELL ELDRIDGE) Psychiatric diagnosis deferred (Acute) Medical History Opioid abuse History of COPD Tobacco abuse Marijuana use Anxiety and depression Back pain Bronchitis Contact with contaminated hypodermic needle History of hyperglycemia Family history of thyroid disease Depression Schizophrenia Surgical History H/O thumb surgery Social History Smoking/Tobacco Use Status: Current every day Tobacco Type: cigarettes Smoking risk assessment performed?: Yes Alcohol Intake: current Alcohol Intake frequency: holidays/special occasions only Alcohol type: hard liquor Drug use: Occasionally Substance use type: marijuana Details: 01/04/23 Housing: homeless Do you feel safe at home: Yes Do you feel safe in your relationship?: Yes Medical Decision Making Quality:SDOH Health Related Social Needs: No Data to Display Discharge Plan Discharge Details Chief Complaint: GenMedical Primary Care Provider: Unknown,Unknown ED Provider: Johny Martin [place] Meds and New Rx's Prescriptions: No Action cyanocobalamin (vitamin B-12) 1,000 mcg capsule 1,000 mcg PO DAILY Patient Comments: not taking gabapentin 100 mg capsule 100 mg PO TID Patient Comments: not taking thiamine HCl (vitamin B1) 100 mg tablet 100 mg PO DAILY Patient Comments: does not take aspirin [Adult Aspirin Regimen] 81 mg tablet,delayed release (DR/EC) 81 mg PO DAILY Patient Comments: not taking multivitamin Tablet 1 tab PO DAILY Patient Comments: does not take vitamin E mixed 400 unit capsule PO Patient Comments: does not take epinephrine [EpiPen] 0.3 mg/0.3 mL auto-injector 0.3 mg IM Q4H PRN Abilify Maintena 300 mg suspension,extended rel recon 300 mg IM QMONTH Patient Comments: Not taking dont need them lisdexamfetamine [Vyvanse] 50 mg capsule 50 mg PO DAILY lorazepam [Ativan] 0.5 mg tablet 0.5 mg PO BID PRN guaifenesin [Mucinex] 600 mg tablet extended release 12hr 600 mg PO Q12H PRNQty: 10 0RF Patient Comments: not taking
[2023-06-11 19:20] VITALS: BP 126/90; PULSE 92; RESP 18; TEMP 37; O2SAT 99
[2023-06-11 19:23] VITALS: RESP 18
--- NOTE | 2023-06-11 19:42 | ED.PROG_ITS ---
Date of service: 06/11/23 Time of Service: 19:42 Medical Decision Making I had initially signed up to participate in this patient's care however he left the emergency department before I was able to see him. His vital signs were reassuring. Quality:SDOH Health Related Social Needs: No Data to Display Discharge Plan Discharge Details Chief Complaint: GenMedical Primary Care Provider: Unknown,Unknown ED Provider: Johny Martin [place] Meds and New Rx's Prescriptions: No Action cyanocobalamin (vitamin B-12) 1,000 mcg capsule 1,000 mcg PO DAILY Patient Comments: not taking gabapentin 100 mg capsule 100 mg PO TID Patient Comments: not taking thiamine HCl (vitamin B1) 100 mg tablet 100 mg PO DAILY Patient Comments: does not take aspirin [Adult Aspirin Regimen] 81 mg tablet,delayed release (DR/EC) 81 mg PO DAILY Patient Comments: not taking multivitamin Tablet 1 tab PO DAILY Patient Comments: does not take vitamin E mixed 400 unit capsule PO Patient Comments: does not take epinephrine [EpiPen] 0.3 mg/0.3 mL auto-injector 0.3 mg IM Q4H PRN Abilify Maintena 300 mg suspension,extended rel recon 300 mg IM QMONTH Patient Comments: Not taking dont need them lisdexamfetamine [Vyvanse] 50 mg capsule 50 mg PO DAILY lorazepam [Ativan] 0.5 mg tablet 0.5 mg PO BID PRN guaifenesin [Mucinex] 600 mg tablet extended release 12hr 600 mg PO Q12H PRNQty: 10 0RF Patient Comments: not taking
== END 2023-06-11 19:36 | disposition left against medical advice (07) ==
LOC: ER 19:16
PROVIDERS: Emergency Provider Emergency Medicine
DX: M79.676 Pain in unspecified toe(s) (principal); Z53.21 Procedure and treatment not carried out due to patient leaving prior to being seen by health care provider
CPT/HCPCS: 00123

== ENCOUNTER 2023-06-13 14:44 | Emergency (ER) | payer MEDICARE, MEDICAID, SELFPAY ==
[2023-06-13 14:50] VITALS: BP 126/84; PULSE 101; RESP 16; TEMP 36.4; O2SAT 99
--- NOTE | 2023-06-13 16:24 | ED.GENADUL_ITS ---
HPI General Stated Complaint: Orthopedic ARNAV: 5 Date/Time Provider Initiated Documentation: 06/13/23 15:04. Limitations to Documentation: no limitations. Information obtained by: patient. HPI Narrative: 47-year-old gentleman with past medical history of psychosis presents for evaluation of concern for his toes. Patient reports that he would like to see a aquarium tank attendant because his toes are gross. He denies any itching or wounds. He states that when he was recently admitted at [facility], they were shaving his feet and that this made his feet seem better. Related Data Home Medications Medication Instructions Recorded Confirmed aspirin 81 mg tablet,delayed 81 mg PO DAILY 04/24/22 06/13/23 release (Adult Aspirin Regimen) cyanocobalamin (vitamin B-12) 1,000 mcg PO DAILY 04/24/22 06/13/23 1,000 mcg capsule gabapentin 100 mg capsule 100 mg PO TID 04/24/22 06/13/23 multivitamin 1 tab PO DAILY 04/24/22 06/13/23 thiamine HCl (vitamin B1) 100 mg 100 mg PO DAILY 04/24/22 06/13/23 tablet vitamin E mixed 400 unit capsule unit PO 04/24/22 guaifenesin 600 mg tablet, 600 mg PO Q12H PRN #10 tabs 05/20/22 06/13/23 extended release 12 hr (Mucinex) aripiprazole 300 mg intramuscular 300 mg IM QMONTH 12/20/22 06/13/23 suspension,extended release (Abilify Maintena) epinephrine 0.3 mg/0.3 mL 0.3 mg IM Q4H PRN 12/20/22 06/13/23 injection, auto-injector (EpiPen) lisdexamfetamine 50 mg capsule 50 mg PO DAILY 12/20/22 06/13/23 (Vyvanse) lorazepam 0.5 mg tablet (Ativan) 0.5 mg PO BID PRN 12/20/22 06/13/23 Previous Rx's Medication Instructions Recorded guaifenesin 600 mg tablet, 600 mg PO Q12H PRN #10 tabs 05/20/22 extended release 12 hr (Mucinex) Allergies Allergy/AdvReac Type Severity Reaction Status Date / Time sildenafil [From Viagra] Allergy Severe Verified 06/13/23 14:49 bee venom protein (honey bee) Allergy Verified 06/13/23 14:49 naproxen Allergy Verified 06/13/23 14:49 prednisone Allergy Verified 06/13/23 14:49 shrimp Allergy Verified 06/13/23 14:49 vicotin Allergy Uncoded 06/13/23 14:49 healy milk AdvReac Uncoded 06/13/23 14:49 PFSH All Active Problems Hypertrophic toenail (Acute) Psychiatric diagnosis deferred (Acute) Medical History Opioid abuse History of COPD Tobacco abuse Marijuana use Anxiety and depression Back pain Bronchitis Contact with contaminated hypodermic needle History of hyperglycemia Family history of thyroid disease Depression Schizophrenia Surgical History H/O thumb surgery Social History Smoking/Tobacco Use Status: Current every day Tobacco Type: cigarettes Smoking risk assessment performed?: Yes Alcohol Intake: current Alcohol Intake frequency: holidays/special occasions only Alcohol type: hard liquor Drug use: Occasionally Substance use type: marijuana Details: 01/04/23 Housing: homeless Do you feel safe at home: Yes Do you feel safe in your relationship?: Yes Exam Narrative Exam Narrative: Review of Systems: All systems reviewed & are unremarkable except as noted in HPI and below Well-developed, no acute distress NACT PERRL, normal conjunctiva RRR Unlabored respiratory effort Nondistended abdomen Extremities w/o deformity, no cyanosis, no edema Bilateral feet with hypertrophic long toenails, no open wounds, no erythema or signs of cellulitis No rashes or lesions. no focal neurologic deficits Flat affect Course Vital Signs Vital signs: Vital Signs Temperature 36.4 C 06/13/23 14:50 Pulse 101 H 06/13/23 14:50 Respiratory Rate 16 06/13/23 14:50 Blood Pressure 126/84 06/13/23 14:50 Pulse Oximetry 99 06/13/23 14:50 Temperature 36.4 C 06/13/23 14:50 Temperature Source Skin 06/13/23 14:50 Pulse 101 H 06/13/23 14:50 Respiratory Rate 16 06/13/23 14:50 Respiratory Effort Normal, Non-Labored 06/13/23 14:53 Blood Pressure 126/84 06/13/23 14:50 Pulse Oximetry 99 06/13/23 14:50 Pain Level 0 06/13/23 14:50 Medical Decision Making Evaluation of toenail concerns. Patient has no evidence of acute fungal infection cellulitis or other skin disorder. He does have hypertrophic toenails. I have referred him to podiatry to help manage this. Otherwise the patient has no emergent issues that need to be addressed today. Medical Records Medical records reviewed: Yes I reviewed the patient's medical records. Quality:SDOH Health Related Social Needs: No Data to Display Discharge Plan Disposition Patient Disposition: Home Condition: Good Discharge Details Clinical Impression: Hypertrophic toenail Primary Care Provider: Unknown,Unknown ED Provider: Wero Kaplan Home Meds and New Rx's Prescriptions: No Action cyanocobalamin (vitamin B-12) 1,000 mcg capsule 1,000 mcg PO DAILY Patient Comments: not taking gabapentin 100 mg capsule 100 mg PO TID Patient Comments: not taking thiamine HCl (vitamin B1) 100 mg tablet 100 mg PO DAILY Patient Comments: does not take aspirin [Adult Aspirin Regimen] 81 mg tablet,delayed release (DR/EC) 81 mg PO DAILY Patient Comments: not taking multivitamin Tablet 1 tab PO DAILY Patient Comments: does not take vitamin E mixed 400 unit capsule PO Patient Comments: does not take epinephrine [EpiPen] 0.3 mg/0.3 mL auto-injector 0.3 mg IM Q4H PRN Abilify Maintena 300 mg suspension,extended rel recon 300 mg IM QMONTH Patient Comments: Not taking dont need them lisdexamfetamine [Vyvanse] 50 mg capsule 50 mg PO DAILY lorazepam [Ativan] 0.5 mg tablet 0.5 mg PO BID PRN guaifenesin [Mucinex] 600 mg tablet extended release 12hr 600 mg PO Q12H PRNQty: 10 0RF Patient Comments: not taking Discharge Instructions Additional Instructions: MAKE SURE YOUR SOCKS ARE CLEAN AND DRY PLEASE FOLLOW UP WITH PODIATRY Discharge Data Discharge Date/Time-TO BE ENTERED AT DEPARTURE: 06/13/23 16:38
[2023-06-13 16:33] VITALS: BP 126/84; PULSE 101; RESP 16; TEMP 36.4; O2SAT 99
== END 2023-06-13 16:38 | disposition home or self-care (01) ==
PROVIDERS: Emergency Provider Emergency Medicine
DX: Q84.5 Enlarged and hypertrophic nails (principal); F17.210 Nicotine dependence, cigarettes, uncomplicated; Z79.82 Long term (current) use of aspirin

== ENCOUNTER 2023-06-21 19:55 | Emergency (ER) | payer MEDICARE, MEDICAID, SELFPAY ==
[2023-06-21 19:57] VITALS: BP 120/70; PULSE 107; RESP 16; TEMP 37
--- NOTE | 2023-06-21 20:54 | W.ED.GENAD ---
HPI General Date/Time Provider Initiated Documentation: 06/21/23 20:09. HPI Narrative: This 47-year-old male presents to the emergency department with initial complaint of needing a care bed. Upon further discussion it sounds like patient is homeless and has been staying outside of the please department as he has no place to live. He presents secondary to anxiety secondary to homelessness and declines any acute suicidality or homicidality. States he smokes marijuana but denies any additional illicit drug use Related Data Home Medications Medication Instructions Recorded Confirmed aspirin 81 mg tablet,delayed 81 mg PO DAILY 04/24/22 06/13/23 release (Adult Aspirin Regimen) cyanocobalamin (vitamin B-12) 1,000 mcg PO DAILY 04/24/22 06/13/23 1,000 mcg capsule gabapentin 100 mg capsule 100 mg PO TID 04/24/22 06/13/23 multivitamin 1 tab PO DAILY 04/24/22 06/13/23 thiamine HCl (vitamin B1) 100 mg 100 mg PO DAILY 04/24/22 06/13/23 tablet vitamin E mixed 400 unit capsule unit PO 04/24/22 guaifenesin 600 mg tablet, 600 mg PO Q12H PRN #10 tabs 05/20/22 06/13/23 extended release 12 hr (Mucinex) aripiprazole 300 mg intramuscular 300 mg IM QMONTH 12/20/22 06/13/23 suspension,extended release (Abilify Maintena) epinephrine 0.3 mg/0.3 mL 0.3 mg IM Q4H PRN 12/20/22 06/13/23 injection, auto-injector (EpiPen) lisdexamfetamine 50 mg capsule 50 mg PO DAILY 12/20/22 06/13/23 (Vyvanse) lorazepam 0.5 mg tablet (Ativan) 0.5 mg PO BID PRN 12/20/22 06/13/23 Previous Rx's Medication Instructions Recorded guaifenesin 600 mg tablet, 600 mg PO Q12H PRN #10 tabs 05/20/22 extended release 12 hr (Mucinex) Allergies Allergy/AdvReac Type Severity Reaction Status Date / Time sildenafil [From Viagra] Allergy Severe Verified 06/13/23 14:49 bee venom protein (honey bee) Allergy Verified 06/13/23 14:49 naproxen Allergy Verified 06/13/23 14:49 prednisone Allergy Verified 06/13/23 14:49 shrimp Allergy Verified 06/13/23 14:49 vicotin Allergy Uncoded 06/13/23 14:49 healy milk AdvReac Uncoded 06/13/23 14:49 General Stated Complaint: PsychEval ARNAV: 2 Course Vital Signs Vital signs: Vital Signs Temperature 37.0 C 06/21/23 19:57 Pulse 107 H 06/21/23 19:57 Respiratory Rate 16 06/21/23 19:57 Blood Pressure 120/70 06/21/23 19:57 Temperature 37.0 C 06/21/23 19:57 Temperature Source Skin 06/21/23 19:57 Pulse 107 H 06/21/23 19:57 Respiratory Rate 16 06/21/23 19:57 Respiratory Effort Normal, Non-Labored 06/21/23 20:04 Blood Pressure 120/70 06/21/23 19:57 Blood Pressure Position Sitting 06/21/23 19:57 Oxygen Delivery Method Room Air 06/21/23 19:57 Oxygen Flow Rate 0 06/21/23 19:57 Pain Level 0 06/21/23 19:57 Medical Decision Making This 47-year-old male known to this facility presents alert, oriented, and at his baseline, initially presenting for psychiatric complaint, and further evaluation it seems like he has anxiety secondary to homelessness in the [place] temperatures this evening He states he simply does not think he can stay outside secondary to the cold weather [address] was called and there is no housing available in the state this evening, we specifically asked regarding the warming residential and they state that the wearing residential is full Patient is alert, oriented, calm, appropriate, he will stay in the emergency department overnight will be discharged in the morning, he is aware that should he escalate in terms of behavior he will be asked to leave Patient asked to be excused to go outside and smoke, he was told that if he left the emergency department here for check in again and he said I'll just freeze, picked up his belongings and walked out of ED . Quality:SDOH Health Related Social Needs: No Data to Display PFSH All Active Problems (Updated 06/21/23 @ 21:03 by MICHELLE Kitchen) Homeless (Acute) Schizophrenia (Chronic) Hypertrophic toenail (Acute) Psychiatric diagnosis deferred (Acute) Medical History Opioid abuse History of COPD Tobacco abuse Marijuana use Anxiety and depression Back pain Bronchitis Contact with contaminated hypodermic needle History of hyperglycemia Family history of thyroid disease Depression Schizophrenia Surgical History H/O thumb surgery Social History Smoking/Tobacco Use Status: Current every day Tobacco Type: cigarettes Smoking risk assessment performed?: Yes Alcohol Intake: current Alcohol Intake frequency: holidays/special occasions only Alcohol type: hard liquor Drug use: Occasionally Substance use type: marijuana Details: 01/04/23 Housing: homeless Do you feel safe at home: Yes Do you feel safe in your relationship?: Yes Additional Social history: states he got kicked out of his place Discharge Plan Disposition Patient Disposition: Eloped Discharge Details Clinical Impression: Schizophrenia, Homeless Primary Care Provider: Unknown,Unknown ED Provider: Almita Shelton [place] Meds and New Rx's Prescriptions: Continued cyanocobalamin (vitamin B-12) 1,000 mcg capsule 1,000 mcg PO DAILY Patient Comments: not taking gabapentin 100 mg capsule 100 mg PO TID Patient Comments: not taking thiamine HCl (vitamin B1) 100 mg tablet 100 mg PO DAILY Patient Comments: does not take aspirin [Adult Aspirin Regimen] 81 mg tablet,delayed release (DR/EC) 81 mg PO DAILY Patient Comments: not taking multivitamin Tablet 1 tab PO DAILY Patient Comments: does not take vitamin E mixed 400 unit capsule PO Patient Comments: does not take epinephrine [EpiPen] 0.3 mg/0.3 mL auto-injector 0.3 mg IM Q4H PRN Abilify Maintena 300 mg suspension,extended rel recon 300 mg IM QMONTH Patient Comments: Not taking dont need them lisdexamfetamine [Vyvanse] 50 mg capsule 50 mg PO DAILY lorazepam [Ativan] 0.5 mg tablet 0.5 mg PO BID PRN guaifenesin [Mucinex] 600 mg tablet extended release 12hr 600 mg PO Q12H PRNQty: 10 0RF Patient Comments: not taking Discharge Instructions Additional Instructions: please continue to call 211 to establish housing return earlier with new or worsening complaints
== END 2023-06-21 21:29 | disposition left against medical advice (07) ==
PROVIDERS: Emergency Provider Physician Assistant
DX: F20.9 Schizophrenia, unspecified (principal); Z59.00 Homelessness unspecified
CPT/HCPCS: 99283

== ENCOUNTER 2023-06-23 19:09 | Emergency (ER) | payer MEDICARE, MEDICAID, SELFPAY ==
[2023-06-23 19:10] VITALS: BP 128/86; PULSE 110; RESP 16; TEMP 37.5; O2SAT 95
--- NOTE | 2023-06-23 19:27 | ED.GENADUL_ITS ---
HPI General Mode of arrival: EMS . Date/Time Provider Initiated Documentation: 06/23/23 19:09 . Limitations to Documentation: other (not cooperative) . Information obtained by: EMS . HPI Narrative: presents by EMS requesting a mental health evaluation. when asked why he was here he replied a sandwich and a mental health evaluation when asked if suicidal or homicidal replied no. He denies any recent medical illness or c/o. He declines a medical evaluation. He is awake and responding appropriately. No evidence of impairment. Appears to have capacity. Related Data Home Medications Medication Instructions Recorded Confirmed aspirin 81 mg tablet,delayed 81 mg PO DAILY 04/24/22 06/23/23 release (Adult Aspirin Regimen) cyanocobalamin (vitamin B-12) 1,000 mcg PO DAILY 04/24/22 06/23/23 1,000 mcg capsule gabapentin 100 mg capsule 100 mg PO TID 04/24/22 06/23/23 multivitamin 1 tab PO DAILY 04/24/22 06/23/23 thiamine HCl (vitamin B1) 100 mg 100 mg PO DAILY 04/24/22 06/23/23 tablet vitamin E mixed 400 unit capsule 1 unit PO DAILY 04/24/22 06/23/23 guaifenesin 600 mg tablet, 600 mg PO Q12H PRN #10 tabs 05/20/22 06/23/23 extended release 12 hr (Mucinex) aripiprazole 300 mg intramuscular 300 mg IM QMONTH 12/20/22 06/23/23 suspension,extended release (Abilify Maintena) epinephrine 0.3 mg/0.3 mL 0.3 mg IM Q4H PRN 12/20/22 06/23/23 injection, auto-injector (EpiPen) lisdexamfetamine 50 mg capsule 50 mg PO DAILY 12/20/22 06/23/23 (Vyvanse) lorazepam 0.5 mg tablet (Ativan) 0.5 mg PO BID PRN 12/20/22 06/23/23 Previous Rx's Medication Instructions Recorded guaifenesin 600 mg tablet, 600 mg PO Q12H PRN #10 tabs 05/20/22 extended release 12 hr (Mucinex) Allergies Allergy/AdvReac Type Severity Reaction Status Date / Time sildenafil [From Viagra] Allergy Severe Verified 06/23/23 19:22 bee venom protein (honey bee) Allergy Verified 06/23/23 19:22 naproxen Allergy Verified 06/23/23 19:22 prednisone Allergy Verified 06/23/23 19:22 shrimp Allergy Verified 06/23/23 19:22 vicotin Allergy Uncoded 06/23/23 19:22 healy milk AdvReac Uncoded 06/23/23 19:22 General Stated Complaint: PsychEval ARNAV: 2 Review of Systems All systems reviewed & are unremarkable except as noted in HPI and below Exam Narrative Exam Narrative: Well-appearing male of stated age in no acute distress. Head is atraumatic facial appearance normal. Eyes are nonicteric noninjected. He tracks me through the room. He responds appropriately to questions but is speaking in a whisper. His neck is supple with full range of motion no meningeal signs. His respirations are even and unlabored his skin is pink warm dry well-perfused Skin visualized with no rashes lesions or evidence of trauma. He is moving all his extremities. Course Vital Signs Vital signs: Vital Signs Temperature 37.5 C 06/23/23 19:10 Pulse 110 H 06/23/23 19:10 Respiratory Rate 16 06/23/23 19:10 Blood Pressure 128/86 06/23/23 19:10 Pulse Oximetry 95 06/23/23 19:10 Temperature 37.5 C 06/23/23 19:10 Temperature Source Temporal Artery Scan 06/23/23 19:10 Pulse 110 H 06/23/23 19:10 Respiratory Rate 16 06/23/23 19:10 Blood Pressure 128/86 06/23/23 19:10 Blood Pressure Position Supine 06/23/23 19:10 Pulse Oximetry 95 06/23/23 19:10 Oxygen Delivery Method Room Air 06/23/23 19:10 Oxygen Flow Rate 0 06/23/23 19:10 Medical Decision Making Patient presents via EMS requesting a sandwich and a mental health evaluation. He denies any physical complaints declines any medical evaluation. He does not appear to lack capacity. He is awake oriented and does not appear impaired. He is cleared for mental health evaluation. Zoom camera brought into his room which he pushes away and declines to speak to the mental health provider. Again he denies suicidal or homicidal ideation. There is no medical reason to keep patient hospitalized. He is safe for discharge to home. He did refuse to leave the department. Security was called to assist which she declined to leave again. [facility] police called and patient clearly demonstrating capacity and understanding as he is telling the officers that he will rudy them for removing him. He leaves the department under police escort in stable condition Medical Records Medical records reviewed: Yes I reviewed the patient's medical records. Quality:[facility] Health Related Social Needs: No Data to Display PFSH All Active Problems (Updated 06/23/23 @ 20:01 by Ronit Patel NP) Schizophrenia (Chronic) Homeless (Acute) Schizophrenia (Chronic) Hypertrophic toenail (Acute) Psychiatric diagnosis deferred (Acute) Medical History Opioid abuse History of COPD Tobacco abuse Marijuana use Anxiety and depression Back pain Bronchitis Contact with contaminated hypodermic needle History of hyperglycemia Family history of thyroid disease Depression Schizophrenia Surgical History H/O thumb surgery Social History Smoking/Tobacco Use Status: Current every day Tobacco Type: cigarettes Smoking risk assessment performed?: Yes Alcohol Intake: current Alcohol Intake frequency: holidays/special occasions only Alcohol type: hard liquor Drug use: Occasionally Substance use type: marijuana Housing: homeless Do you feel safe at home: Yes Do you feel safe in your relationship?: Yes Additional Social history: states he got kicked out of his place Discharge Plan Disposition Patient Disposition: Home Condition: Stable Discharge Details Clinical Impression: Schizophrenia Primary Care Provider: Unknown,Unknown ED Provider: Ronit Patel Meds and New Rx's Prescriptions: No Action cyanocobalamin (vitamin B-12) 1,000 mcg capsule 1,000 mcg PO DAILY Patient Comments: not taking gabapentin 100 mg capsule 100 mg PO TID Patient Comments: not taking thiamine HCl (vitamin B1) 100 mg tablet 100 mg PO DAILY Patient Comments: does not take aspirin [Adult Aspirin Regimen] 81 mg tablet,delayed release (DR/EC) 81 mg PO DAILY Patient Comments: not taking multivitamin Tablet 1 tab PO DAILY Patient Comments: does not take vitamin E mixed 400 unit capsule 1 unit PO DAILY Patient Comments: does not take epinephrine [EpiPen] 0.3 mg/0.3 mL auto-injector 0.3 mg IM Q4H PRN Abilify Maintena 300 mg suspension,extended rel recon 300 mg IM QMONTH Patient Comments: Not taking dont need them lisdexamfetamine [Vyvanse] 50 mg capsule 50 mg PO DAILY lorazepam [Ativan] 0.5 mg tablet 0.5 mg PO BID PRN guaifenesin [Mucinex] 600 mg tablet extended release 12hr 600 mg PO Q12H PRNQty: 10 0RF Patient Comments: not taking Discharge Instructions Instructions: Schizophrenia (ED) Additional Instructions: you decline medical evaluation and deny any recent medical illness. you initially requested a mental health evaluation but declined to speak to the mental health worker you deny suicidal or homicidal ideation and are safe for discharge please follow up with your outpatient mental health team Referrals: Unknown,Unknown [Primary Care Provider] - (follow up outpatient with mental health)
--- NOTE | 2023-06-23 20:24 | NUR.NOTE ---
Pt advised he is not SI or HI, he stated he wanted to talk to Mental Health, pt refused Mental Health Consult, Pt was discharged by provider, pt refused to sign discharge and is refusing to leave, security has been notified, we are waiting for security to assist with removal of pt, SIMONE
--- NOTE | 2023-06-23 21:04 | NUR.NOTE ---
Security arrived and pt refused to speak to or comply with security, security requested VSP, VSP removed pt from the property, [facility]
== END 2023-06-23 21:06 | disposition home or self-care (01) ==
PROVIDERS: Emergency Provider Nurse Practitioner Acute Care
DX: F20.9 Schizophrenia, unspecified (principal); F17.210 Nicotine dependence, cigarettes, uncomplicated; Z79.82 Long term (current) use of aspirin; Z59.00 Homelessness unspecified
CPT/HCPCS: 99282

== ENCOUNTER 2023-06-24 01:12 | Emergency (ER) | payer MEDICARE, MEDICAID, SELFPAY ==
--- NOTE | 2023-06-24 01:36 | ED.GENADUL_ITS ---
HPI General Date/Time Provider Initiated Documentation: 06/24/23 01:30 . Information obtained by: patient, police and old records reviewed . HPI Narrative: 47yo M arrives via PD with warrant for emergency examination. History from patient, police, warrant documentation, and [facility] recorded. Patient denies SI, HI, AH, VH currently. Otherwise non-participatory in history. States he is willing to stay and receive psychiatric treatment. Related Data Home Medications Medication Instructions Recorded Confirmed aspirin 81 mg tablet,delayed 81 mg PO DAILY 04/24/22 06/23/23 release (Adult Aspirin Regimen) cyanocobalamin (vitamin B-12) 1,000 mcg PO DAILY 04/24/22 06/23/23 1,000 mcg capsule gabapentin 100 mg capsule 100 mg PO TID 04/24/22 06/23/23 multivitamin 1 tab PO DAILY 04/24/22 06/23/23 thiamine HCl (vitamin B1) 100 mg 100 mg PO DAILY 04/24/22 06/23/23 tablet vitamin E mixed 400 unit capsule 1 unit PO DAILY 04/24/22 06/23/23 guaifenesin 600 mg tablet, 600 mg PO Q12H PRN #10 tabs 05/20/22 06/23/23 extended release 12 hr (Mucinex) aripiprazole 300 mg intramuscular 300 mg IM QMONTH 12/20/22 06/23/23 suspension,extended release (Abilify Maintena) epinephrine 0.3 mg/0.3 mL 0.3 mg IM Q4H PRN 12/20/22 06/23/23 injection, auto-injector (EpiPen) lisdexamfetamine 50 mg capsule 50 mg PO DAILY 12/20/22 06/23/23 (Vyvanse) lorazepam 0.5 mg tablet (Ativan) 0.5 mg PO BID PRN 12/20/22 06/23/23 Previous Rx's Medication Instructions Recorded guaifenesin 600 mg tablet, 600 mg PO Q12H PRN #10 tabs 05/20/22 extended release 12 hr (Mucinex) Allergies Allergy/AdvReac Type Severity Reaction Status Date / Time sildenafil [From Viagra] Allergy Severe Verified 06/23/23 19:22 bee venom protein (honey bee) Allergy Verified 06/23/23 19:22 naproxen Allergy Verified 06/23/23 19:22 prednisone Allergy Verified 06/23/23 19:22 shrimp Allergy Verified 06/23/23 19:22 vicotin Allergy Uncoded 06/23/23 19:22 healy milk AdvReac Uncoded 06/23/23 19:22 General ARNAV: 2 Review of Systems Narrative: see HPI Exam Narrative Exam Narrative: General: Alert, in no acute distress. Head: Normocephalic, atraumatic Neck: Trachea midline, Neck supple. Cardiac: RRR, no murmurs appreciated Resp: No respiratory distress. CTAB. Abd: Soft, non-distended, nontender Extremities: No deformities. No peripheral edema. Neurologic: GCS 15. Moves all extremities freely against gravity Psych: Calm, minimally participatory with history and exam. Mood okay, affect flat. Speech with soft with normal rate, rythym and tone. Denies SI/HI/AH/VH. Does not appear to be responding to internal stimuli. No psychomotor agitation. Medical Decision Making 47yo M arrives via PD with warrant for emergency examination. History from patient, police, warrant documentation, and [facility] records. Patient arrives under warrant for emergency examination, evaluated by [facility] prior to arrival. Documentation reviewed. Statements from multiple ESC and multiple troopers included indicated that he has made threatening statements directed and law enforcement officers and made delusional statements including refusing to leave unless escorted by the FBI, that the officers could not force him to someone. Patient denies SI, HI, AH, VH currently. Otherwise non-participatory in history. States he is willing to stay and receive psychiatric treatment. Vital signs reassuring. Calm overnight with no behavioral issues. Signed out to oncoming physician; currently pending voluntary psychiatric placement. Should he no longer be agreeable to placement he would need re-eval as he may meet EE criteria. Medical Records Medical records reviewed: Yes I reviewed the patient's medical records. Quality:[facility] Health Related Social Needs: No Data to Display PFSH All Active Problems (Updated 06/23/23 @ 20:01 by Ronit Patel NP) Schizophrenia (Chronic) Homeless (Acute) Schizophrenia (Chronic) Hypertrophic toenail (Acute) Psychiatric diagnosis deferred (Acute) Medical History Opioid abuse History of COPD Tobacco abuse Marijuana use Anxiety and depression Back pain Bronchitis Contact with contaminated hypodermic needle History of hyperglycemia Family history of thyroid disease Depression Schizophrenia Surgical History H/O thumb surgery Social History Smoking/Tobacco Use Status: Current every day Tobacco Type: cigarettes Smoking risk assessment performed?: Yes Alcohol Intake: current Alcohol Intake frequency: holidays/special occasions only Alcohol type: hard liquor Drug use: Occasionally Substance use type: marijuana Housing: homeless Do you feel safe at home: Yes Do you feel safe in your relationship?: Yes Additional Social history: states he got kicked out of his place Discharge Plan Discharge Details Chief Complaint: PsychEval Primary Care Provider: Unknown,Unknown ED Provider: Mariajose Gabriel Home Meds and New Rx's Prescriptions: No Action cyanocobalamin (vitamin B-12) 1,000 mcg capsule 1,000 mcg PO DAILY Patient Comments: not taking gabapentin 100 mg capsule 100 mg PO TID Patient Comments: not taking thiamine HCl (vitamin B1) 100 mg tablet 100 mg PO DAILY Patient Comments: does not take aspirin [Adult Aspirin Regimen] 81 mg tablet,delayed release (DR/EC) 81 mg PO DAILY Patient Comments: not taking multivitamin Tablet 1 tab PO DAILY Patient Comments: does not take vitamin E mixed 400 unit capsule 1 unit PO DAILY Patient Comments: does not take epinephrine [EpiPen] 0.3 mg/0.3 mL auto-injector 0.3 mg IM Q4H PRN Abilify Maintena 300 mg suspension,extended rel recon 300 mg IM QMONTH Patient Comments: Not taking dont need them lisdexamfetamine [Vyvanse] 50 mg capsule 50 mg PO DAILY lorazepam [Ativan] 0.5 mg tablet 0.5 mg PO BID PRN guaifenesin [Mucinex] 600 mg tablet extended release 12hr 600 mg PO Q12H PRNQty: 10 0RF Patient Comments: not taking
[2023-06-24 01:37] VITALS: BP 115/71; PULSE 78; RESP 18; TEMP 36.6; O2SAT 100
--- NOTE | 2023-06-24 01:46 | NUR.NOTE ---
PT is not cooperative and is not answering questions. Nursing Note:
--- NOTE | 2023-06-24 10:46 | NUR.NOTE ---
Nursing Note: Spoke to patients Prescriber Yoselin Platt, RAMON @ [facility] to verify medication compliance and IM injection last given. Pt received Invega 154mg IM end of May. and plan was to up his dose to the 234mg dose next week. Pt has remained non-compliant with all medications, but does recommend restarting Depakote 1000mg ER once daily as patient is less impulsive on this medication.
--- NOTE | 2023-06-24 12:46 | CMSP_ITS ---
Date of service: 06/24/23 Time of Service: 12:46 Care Management Safety Plan Status Status: Involuntary Reason for Wait Reason for Wait: Inpatient Admission Safety Plan Safety Plan: INVOLUNTARY FOR INPATIENT PSYCHIATRIC STABILIZATION.? Patient is appropriate in all interactions since arriving at [facility]; Pt has demonstrated appropriate coping and communication skills, has articulated his needs and concerns and is fully engaged during staff interactions. Safety plan has been established with patient, and care team, to adhere to patient goals, identify restrictions based on behavioral status, address nutrition, and determine allowed personal belongings, tools for hygiene and personal care. Determine level of activity including ambulation, level of supervision, visitors, and determine privileges based on behaviors and level of engagement by pt. SAFETY PLAN: 1. Will remain on suicide precautions, in paper clothes 2. Will remain in Zone B under direct supervision of one-on-one staff at all times provided by [employer]; LAZ, ECHOCARDIOGRAPHER community health advisor. 3. May have paper cups, plates, finger foods as well as a cardboard spoon with which to eat meals. 4. Follow [facility] Management of the Admitted Behavioral Health Patient policy. 5. Shower available in Zone B without restriction. 6. Personal belongings-soft items permitted at RN discretion. 7. Visitors-none at this time. 8. Activities: soft cart items approved per RN discretion. 9.? Bathroom available in Zone B without restriction. 10. Phone: limited to [facility] cordless phone at RN discretion. Due to INVOLUNTARY status, patient is being held at [facility] by the Department of Mental Health ([facility]) until 2nd certification by [facility] Psychiatrist can be performed (within 24 hours). Staff will provide de-escalation support (CPI) as needed. If patient wishes to leave [facility], staff will contact [facility] Crisis Screener ([phone]) and Financial Retirement Plan Specialist ([phone]) as soon as possible. In the event of elopement, notify [place] [employer] ([phone]). Patient is currently involuntarily at [facility]. [facility] Frontline Mh Teacher will continue seeking placement. Please contact the Financial Retirement Plan Specialist for any needed changes to Safety Plan. Safety plan has been provided to interdepartmental care team. Patient will be transported by [facility] at time of discharge.
--- NOTE | 2023-06-24 12:46 | PDOC.CMSAFE ---
Date of service: 06/24/23 Time of Service: 12:46 Care Management Safety Plan Status Status: Involuntary Reason for Wait Reason for Wait: Inpatient Admission Safety Plan Safety Plan: INVOLUNTARY FOR INPATIENT PSYCHIATRIC STABILIZATION.? Patient is appropriate in all interactions since arriving at [facility]; Pt has demonstrated appropriate coping and communication skills, has articulated his needs and concerns and is fully engaged during staff interactions. Safety plan has been established with patient, and care team, to adhere to patient goals, identify restrictions based on behavioral status, address nutrition, and determine allowed personal belongings, tools for hygiene and personal care. Determine level of activity including ambulation, level of supervision, visitors, and determine privileges based on behaviors and level of engagement by pt. SAFETY PLAN: 1. Will remain on suicide precautions, in paper clothes 2. Will remain in Zone B under direct supervision of one-on-one staff at all times provided by [employer]; LAZ, MELANGEUR OPERATOR composing machine operator. 3. May have paper cups, plates, finger foods as well as a cardboard spoon with which to eat meals. 4. Follow [facility] Management of the Admitted Behavioral Health Patient policy. 5. Shower available in Zone B without restriction. 6. Personal belongings-soft items permitted at RN discretion. 7. Visitors-none at this time. 8. Activities: soft cart items approved per RN discretion. 9.? Bathroom available in Zone B without restriction. 10. Phone: limited to [facility] cordless phone at RN discretion. Due to INVOLUNTARY status, patient is being held at [facility] by the Department of Mental Health ([facility]) until 2nd certification by [facility] Psychiatrist can be performed (within 24 hours). Staff will provide de-escalation support (CPI) as needed. If patient wishes to leave [facility], staff will contact [facility] Crisis Screener ([phone]) and [employer] ([phone]) as soon as possible. In the event of elopement, notify [place] [employer] ([phone]). Patient is currently involuntarily at [facility]. [facility] Frontline Flight Director will continue seeking placement. Please contact the [employer] for any needed changes to Safety Plan. Safety plan has been provided to interdepartmental care team. Patient will be transported by [facility] at time of discharge.
--- NOTE | 2023-06-24 12:48 | W.EDPROG ---
Date of service: 06/24/23 Time of Service: 12:49 Medical Decision Making Given level of disorganized speech and behavior, noted by staff as well as [facility] human services providers, patient be placed on EE. Awaiting placement. Currently resting comfortably no acute distress not requiring any mechanical or physical sedation 06/25 13: 12 patient resting comfortably no acute distress. Medically cleared. Has been accepted at [facility] provider to provider signout given to Isabella Wallace. Quality:[facility] Health Related Social Needs: No Data to Display Sign Out Sign Out Data: Sign Out Comment: 47y M schizophrenia, presented on warrant for EE, delusional/paranoid statements and making homicidal threats to PD. Overnight states willing to seek voluntary psych treatment. [facility] to reval in the morning, pending placement. No home meds. Potentially meets EE criteria should he no longer want to be voluntary. Last updated by Mariajose Gabriel MD at 06/24/23 07:17 Sign Out Comment: EE, awaiting second cert and placement Last updated by Sam Young MD at 06/24/23 17:37 Sign Out Comment: patient here on EE status pending second cert for homicidal ideation and disorganized thoughts Last updated by Mian Villanueva MD at 06/24/23 19:20 Sign Out Comment: 65yo M, EE, pending 2nd cert. Disorganized schizophrenia, homicidal statements towards police. No acute behavioral events overnight. Last updated by Mariajose Gabriel MD at 06/25/23 05:28 Discharge Plan Disposition Patient Disposition: Psychiatric Hospital/Unit Specific Psychiatric Facility: [facility] Condition: Stable Discharge Details Chief Complaint: PsychEval Clinical Impression: Psychosis Primary Care Provider: Unknown,Unknown ED Provider: Sam Young Home Meds and New Rx's Prescriptions: No Action cyanocobalamin (vitamin B-12) 1,000 mcg capsule 1,000 mcg PO DAILY Patient Comments: not taking gabapentin 100 mg capsule 100 mg PO TID Patient Comments: not taking thiamine HCl (vitamin B1) 100 mg tablet 100 mg PO DAILY Patient Comments: does not take aspirin [Adult Aspirin Regimen] 81 mg tablet,delayed release (DR/EC) 81 mg PO DAILY Patient Comments: not taking multivitamin Tablet 1 tab PO DAILY Patient Comments: does not take vitamin E mixed 400 unit capsule 1 unit PO DAILY Patient Comments: does not take epinephrine [EpiPen] 0.3 mg/0.3 mL auto-injector 0.3 mg IM Q4H PRN lisdexamfetamine [Vyvanse] 50 mg capsule 50 mg PO DAILY lorazepam [Ativan] 0.5 mg tablet 0.5 mg PO BID PRN Invega Sustenna 156 mg/mL syringe 156 mg IM .monthly Patient Comments: Spoke w/Prescriber Yoselin Platt- next dose will be 234mg
--- NOTE | 2023-06-24 19:13 | W.EDPROG ---
Date of service: 06/24/23 Time of Service: 19:13 Medical Decision Making pt awaiting second cert for homicidal ideation towards PD and has disorganized thoughts, no new acute complaints, calm currently, will continue to observe Quality:[facility] Health Related Social Needs: No Data to Display Sign Out Sign Out Data: Sign Out Comment: 47y M schizophrenia, presented on warrant for EE, delusional/paranoid statements and making homicidal threats to PD. Overnight states willing to seek voluntary psych treatment. [facility] to reval in the morning, pending placement. No home meds. Potentially meets EE criteria should he no longer want to be voluntary. Last updated by Mariajose Gabriel MD at 06/24/23 07:17 Sign Out Comment: EE, awaiting second cert and placement Last updated by Sam Young MD at 06/24/23 17:37 Discharge Plan Discharge Details Chief Complaint: PsychEval Primary Care Provider: Unknown,Unknown ED Provider: Mian Villanueva Home Meds and New Rx's Prescriptions: No Action cyanocobalamin (vitamin B-12) 1,000 mcg capsule 1,000 mcg PO DAILY Patient Comments: not taking gabapentin 100 mg capsule 100 mg PO TID Patient Comments: not taking thiamine HCl (vitamin B1) 100 mg tablet 100 mg PO DAILY Patient Comments: does not take aspirin [Adult Aspirin Regimen] 81 mg tablet,delayed release (DR/EC) 81 mg PO DAILY Patient Comments: not taking multivitamin Tablet 1 tab PO DAILY Patient Comments: does not take vitamin E mixed 400 unit capsule 1 unit PO DAILY Patient Comments: does not take epinephrine [EpiPen] 0.3 mg/0.3 mL auto-injector 0.3 mg IM Q4H PRN lisdexamfetamine [Vyvanse] 50 mg capsule 50 mg PO DAILY lorazepam [Ativan] 0.5 mg tablet 0.5 mg PO BID PRN Invega Sustenna 156 mg/mL syringe 156 mg IM .monthly Patient Comments: Spoke w/Prescriber Yoselin Platt- next dose will be 234mg
--- NOTE | 2023-06-24 19:24 | PDOC.MHCN_ITS ---
Date of service: 06/24/23 Time of Service: 19:24 Mental Health Emergency Note Release [facility] release signed:: Yes Reason for Visit Mr. Maldonado, a client known to [facility] and who receives services through [employer], came into ER last night; ER staff said client often comes in when it's cold out (meeting needs that are not psychiatric). He initially stated that he was seeking a MH screening however, when the opportunity arose, he declined a MH screening. ER staff reports client is typically pleasant but last night escalated when being discharged. [facility] reported client verbalizing fears that they are not safe here; they're ([facility]) trying to rape him. and that client expressed wanting to go across the road but unknown as to why. This is his 1st assessment and since he has now turned into an EE he will need another assessment. This assessment was completed with LUCIE Armas face to face in Zone B. 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 (Due to delusional thoughts and statements. ) Intent: no, has no intent. Plan: no.does not have a plan. History of suicide attempt: No history of suicide attempt reported Risk: Does risk to harm exist?: yes. Access to means: No. Risk: High Risk Duty to warn indicated: No Asssessment/Mental Status Appearance: Disheveled Attitude: Hostile and Other (uncooperative) Behavior: Psychomotor retardation, Agitated and Other (client left room when they felt agitated and paced) Speech: Soft and Slow Affect: Blunted Mood: Stressed, Depressed, Anxious and Irritable Thought process: Racing, Loose associations, Tangential and Poverty of content Hallucinations: yes, (The client is observed responding to internal stimuli unsure if auditory or other. ) Other (Unclear at this time. ) Delusions: yes, Persectory/Paranoid Attention: Wandering, Inattention and Poor concentration Perception: Derealization Orientation: Disoriented in Situation Memory: Intact Insight: Poor Judgement: Poor Neurovegetative Symptoms Sleep: Decrease (The client is transient and has not slept well since cold weather.) Appetitie: Increase Substance Use: Do you use nicotine?: Yes Have you used substances in the last 7 days?: yes, client responded enough; was asked to elaborate but refused Additional Issues: Assaultive/Threatening Behavior: No Medical Concerns: No Client engaged in active self harm w/weapon: No Threatening to run away: No Child reported abuse/neglect: No Voluntarily presenting for services: No Domestic violence is a concern: No Extreme Psychosis or extreme behavior is present: Yes Impression Client seemed fearful and guarded when the topic of inpatient hospitalization was mentioned; during assessment, client left room twice, and appeared to be responding to internal stimuli both during assessment and when he left being more agitated and responding after leaving his room into the common area of the unit. Client spoke about people in hospitals, including [facility] and [facility] hurting him, raping him and injecting him with medications. Client verbally expressed feeling very hungry multiple times during the assessment; client said they would not answer any questions until they got something to eat. Client was more cooperative with answering questions while eating a snack that was provided in response to client saying they were hungry. Client repeatedly said I'm not signing anything. during the assessment. [facility] staff assured client that they were not being asked to sign anything, we just had some questions to ask to see how they were feeling today. Assessment ended when client became mildly agitated, left the room and stopped responding to any questions, including being asked if they would like to be done with the assessment. The client was unable to engage with any screening tools due to his lack of decision making skills. He requested the CARE Bed however, was informed that the CARE Bed was not available and this seemed to be when the assessment became more difficult and him untrusting of this clinician as Suki told me I was. The client's identifying preferences were recognized as a , non- male who identifies as heterosexual with no scientology affiliation. Plan/Disposition Recommended Disposition: Hospitalization (The client denied. Referrals sent out. ) No. Plan: Erica will remain at [facility] pending acceptance to a psychiatric facility. Based on Erica?s poor judgment, decision-making skills and lack of insight, as well as, his inability to provide daily living skills and care, there is a significant risk to himself. The possibility of Erica being harmed due to his lack of insight is high, especially when he is inconsistent with his treatment and medications as well as, his statements of threats to harm others. Additionally, he is not willing to accept treatment at this time other than the CARE Bed however, it is believed his needs exceed what the CARE Bed can provide at this time. Due to the above self-reported information the client possess a continued risk of harm to himself. Given these factors, it is the clinician's professional opinion that the client requires short-term, immediate, and intensive treatment in a secured environment. Such treatment can manage his symptoms and ensure the safety of himself, until he can safely return to the community. Hospitalization is necessary, as adequate treatment cannot be provided in the community due to the severity of his condition and potential risks. He will be re-assessed twice daily by [facility] until he is accepted or unless his EE is not accepted or he clears enough to not need in patient treatment. Person reported agreement to plan: No Reports/communication Outcome discussed with: ED/Personnel
--- NOTE | 2023-06-24 19:51 | PDOC.MHPN2 ---
Date of service: 06/24/23 Time of Service: 19:23 Mental Health Emergency Note Release [facility] release signed:: No Reason for Visit Client is currently waiting involuntarily at [facility] and will most likely have 2nd certification completed tomorrow (06/25/2023). In the last 2 weeks has the pt presented for ES prior to today?: Yes, presented at [facility] ED Client Information Client is: E [employer] Well Housed: No,status: Homeless Non Suicidal Self Injury Current: No Safety Risk/Harm to Self or Others Current Ideation to Harm Self or Others: No Asssessment/Mental Status Appearance: Disheveled Attitude: Cooperative Behavior: Unremarkable Speech: Normal Affect: Flat Mood: Other Thought process: Unremarkable Hallucinations: No evidence Delusions: yes, (Client did not report any current delusions. ) Other Attention: Unremarkable Perception: Not impaired Orientation: Fully orientated Memory: Impaired in: (Client does not remember parts of the day. ) Recent Insight: Fair Judgement: Fair Neurovegetative Symptoms Libido: Not applicable Additional Issues: Voluntarily presenting for services: No Impression Client is currently waiting involuntarily at [facility] and will most likely have 2nd certification completed tomorrow (06/25/2023). Client stated that he has slept a lot today. Client denied SI and HI. Client stated that he ate today and does not remember what he has eaten. Client stated that he does not know how much he has slept today. Client stated that he does not remember speaking to anyone from [facility] today. Observed client looking disheveled. Observed client having a TV playing in the background and denied watching it. Observed client not wanting to talk much. Observed client with eyes closed and laying in bed covered in a blanket. Plan/Disposition Recommended Disposition: Hospitalization No. Plan: Client will continue to be reassessed twice daily and will meet with [facility] psychiatrist most likely tomorrow. This worker will fax this updated assessment to [facility]. Facilities contacted if Applicable [facility] Not accepted, No bed available [facility] Not accepted, No bed available [facility] Not accepted, No bed available, [facility] Not accepted, No bed available [facility] Not accepted, No bed available Reports/communication Outcome discussed with: ED/Personnel
--- NOTE | 2023-06-24 23:18 | W.EDPROG ---
Date of service: 06/24/23 Time of Service: 23:18 Medical Decision Making This patient was signed out to me. Please see previous notes for H&P and initial eval. In brief, 47yo M presented under warrant for EE eval for delusions and homicidal statemetns towards police. Initially willing to stay/voluntary psych treatment, during the day less so and was officially EEd. Medically cleared, awaiting 2nd cert and placement. No acute events overnight, appeared to be sleeping comfortably. Did not wake for assessment. Signed out to oncoming physician; plan remains 2nd cert and placement. Quality:SDOH Health Related Social Needs: No Data to Display Sign Out Sign Out Data: Sign Out Comment: 47y M schizophrenia, presented on warrant for EE, delusional/paranoid statements and making homicidal threats to PD. Overnight states willing to seek voluntary psych treatment. [facility] to reval in the morning, pending placement. No home meds. Potentially meets EE criteria should he no longer want to be voluntary. Last updated by Mariajose Gabriel MD at 06/24/23 07:17 Sign Out Comment: EE, awaiting second cert and placement Last updated by Sam Young MD at 06/24/23 17:37 Sign Out Comment: patient here on EE status pending second cert for homicidal ideation and disorganized thoughts Last updated by Mian Villanueva MD at 06/24/23 19:20 Sign Out Comment: 65yo M, EE, pending 2nd cert. Disorganized schizophrenia, homicidal statements towards police. No acute behavioral events overnight. Last updated by Mariajose Gabriel MD at 06/25/23 05:28 Discharge Plan Discharge Details Chief Complaint: PsychEval Primary Care Provider: Unknown,Unknown ED Provider: Mariajose Gabriel Home Meds and New Rx's Prescriptions: No Action cyanocobalamin (vitamin B-12) 1,000 mcg capsule 1,000 mcg PO DAILY Patient Comments: not taking gabapentin 100 mg capsule 100 mg PO TID Patient Comments: not taking thiamine HCl (vitamin B1) 100 mg tablet 100 mg PO DAILY Patient Comments: does not take aspirin [Adult Aspirin Regimen] 81 mg tablet,delayed release (DR/EC) 81 mg PO DAILY Patient Comments: not taking multivitamin Tablet 1 tab PO DAILY Patient Comments: does not take vitamin E mixed 400 unit capsule 1 unit PO DAILY Patient Comments: does not take epinephrine [EpiPen] 0.3 mg/0.3 mL auto-injector 0.3 mg IM Q4H PRN lisdexamfetamine [Vyvanse] 50 mg capsule 50 mg PO DAILY lorazepam [Ativan] 0.5 mg tablet 0.5 mg PO BID PRN Invega Sustenna 156 mg/mL syringe 156 mg IM .monthly Patient Comments: Spoke w/Prescriber Yoselin Platt- next dose will be 234mg
--- NOTE | 2023-06-25 08:30 | RT.EKG_ITS ---
APPROVED REPORT Exam: Resting ECG Reason for Exam: for psych admission Patient Location: E HR:75 bpm ECG Measurements Heart Rate 75 AXIS MD 159 P 46 QRSd 128 QRS 34 QT 389 T 9 QTc 434 Conclusion Sinus rhythm...normal P axis, V-rate 60- 99 Right bundle branch block...QRSd>120, terminal axis(90,270) sinus rhythm, normal axis, rbbb unchanged
[2023-06-25 11:01] LABS: *AMPHETAMINES SCREEN URINE Negative (Negative); *BARBITURATES SCREEN URINE Negative (Negative); *BENZODIAZEPINES SCREEN URINE Negative (Negative); Cannabinoids THC Negative (Negative); Cocaine Screen,Urine Negative (Negative); METHADONE URINE SCREEN Negative (Negative); OPIATES URINE SCREEN Negative (Negative)
[2023-06-25 11:03] LABS: Tricyclic Antidepressants Negative (Negative)
--- NOTE | 2023-06-25 16:07 | MHPN_ITS ---
Date of service: 06/25/23 Time of Service: 16:08 Mental Health Emergency Note Release [facility] release signed:: Yes Reason for Visit Mr. Maldonado, a client known to [facility] and who receives services through [employer], came into ER last night; ER staff said client often comes in when it's cold out (meeting needs that are not psychiatric). He initially stated that he was seeking a MH screening however, when the opportunity arose, he declined a MH screening. ER staff reports client is typically pleasant but last night escalated when being discharged. [facility] reported client verbalizing fears that they are not safe here; they're ([facility]) trying to rape him. and that client expressed wanting to go across the road but unknown as to why. This is his 1st assessment and since he has now turned into an EE he will need another assessment. This assessment was completed with LUCIE Armas face to face in Zone B. In the last 2 weeks has the pt presented for ES prior to today?: Unknown Additional Issues: Extreme Psychosis or extreme behavior is present: Yes Dudley Maldonado inquired about the CARE Bed when we first arrived and was informed that the CARE Bed was not available (due to his acuity) and he then asked where he was going and we shared that we were still looking for hospital level of care. He did not seem agitated today as he was on 06.24.23. The client's identifying preferences were recognized as a , non- male who identifies as heterosexual with no uatsdin affiliation. Today, the client presented more subdue and relaxed as he did not leave his bed during the assessment. He made good eye contact and presented as fearful about his experiences that are delusional in nature i.e. killing the invisible man, people trying to rape or drug him. Plan/Disposition Recommended Disposition: Hospitalization facilities contacted. Plan: The client was accepted to [facility] and will be transported once transportation is found. Hospital notification is completed. Reports/communication Outcome discussed with: ED/Personnel
--- NOTE | 2023-06-27 15:17 | W.EDPROG ---
Date of service: 06/25/23 Time of Service: 02:00 Medical Decision Making Patient accepted to [facility]. Provider to provider signout has been provided. No acute distress resting comfortably. Safe for transfer. Quality:SDOH Health Related Social Needs: No Data to Display Sign Out Sign Out Data: Sign Out Comment: 47y M schizophrenia, presented on warrant for EE, delusional/paranoid statements and making homicidal threats to PD. Overnight states willing to seek voluntary psych treatment. [facility] to reval in the morning, pending placement. No home meds. Potentially meets EE criteria should he no longer want to be voluntary. Last updated by Mariajose Gabriel MD at 06/24/23 07:17 Sign Out Comment: EE, awaiting second cert and placement Last updated by Sam Young MD at 06/24/23 17:37 Sign Out Comment: patient here on EE status pending second cert for homicidal ideation and disorganized thoughts Last updated by Mian Villanueva MD at 06/24/23 19:20 Sign Out Comment: 65yo M, EE, pending 2nd cert. Disorganized schizophrenia, homicidal statements towards police. No acute behavioral events overnight. Last updated by Mariajose Gabriel MD at 06/25/23 05:28 Discharge Plan Disposition Patient Disposition: Psychiatric Hospital/Unit Specific Psychiatric Facility: [facility] Condition: Stable Discharge Details Clinical Impression: Psychosis Primary Care Provider: Unknown,Unknown ED Provider: Sam Young Home Meds and New Rx's Prescriptions: No Action cyanocobalamin (vitamin B-12) 1,000 mcg capsule 1,000 mcg PO DAILY Patient Comments: not taking gabapentin 100 mg capsule 100 mg PO TID Patient Comments: not taking thiamine HCl (vitamin B1) 100 mg tablet 100 mg PO DAILY Patient Comments: does not take aspirin [Adult Aspirin Regimen] 81 mg tablet,delayed release (DR/EC) 81 mg PO DAILY Patient Comments: not taking multivitamin Tablet 1 tab PO DAILY Patient Comments: does not take vitamin E mixed 400 unit capsule 1 unit PO DAILY Patient Comments: does not take epinephrine [EpiPen] 0.3 mg/0.3 mL auto-injector 0.3 mg IM Q4H PRN lisdexamfetamine [Vyvanse] 50 mg capsule 50 mg PO DAILY lorazepam [Ativan] 0.5 mg tablet 0.5 mg PO BID PRN Invega Sustenna 156 mg/mL syringe 156 mg IM .monthly Patient Comments: Spoke w/Prescriber Yoselin Platt- next dose will be 234mg Discharge Data Discharge Date/Time-TO BE ENTERED AT DEPARTURE: 06/25/23 19:44
== END 2023-06-25 19:44 ==
PROVIDERS: Emergency Provider Emergency Medicine
DX: R45.850 Homicidal ideations (principal); F20.9 Schizophrenia, unspecified; F17.210 Nicotine dependence, cigarettes, uncomplicated; Z59.00 Homelessness unspecified; Z79.899 Other long term (current) drug therapy
CPT/HCPCS: 00123; 80307; 93005; 99285; 93010

== ENCOUNTER 2023-08-02 16:33 | Emergency (ER) | payer MEDICARE, MEDICAID, SELFPAY ==
[2023-08-02 16:35] VITALS: BP 125/84; PULSE 111; RESP 15; TEMP 36.5; O2SAT 98
--- NOTE | 2023-08-02 16:39 | W.ED.GENAD ---
Discharge Plan Discharge Details Chief Complaint: PsychEval Clinical Impression: Delusions Primary Care Provider: Unknown,Unknown ED Provider: Johny Martin Home Meds and New Rx's Prescriptions: No Action cyanocobalamin (vitamin B-12) 1,000 mcg capsule 1,000 mcg PO DAILY Patient Comments: not taking thiamine HCl (vitamin B1) 100 mg tablet 100 mg PO DAILY Patient Comments: does not take aspirin [Adult Aspirin Regimen] 81 mg tablet,delayed release (DR/EC) 81 mg PO DAILY Patient Comments: not taking multivitamin Tablet 1 tab PO DAILY Patient Comments: does not take vitamin E mixed 400 unit capsule 1 unit PO DAILY Patient Comments: does not take epinephrine [EpiPen] 0.3 mg/0.3 mL auto-injector 0.3 mg IM Q4H PRN Invega Sustenna 156 mg/mL syringe 234 mg IM .monthly Patient Comments: Next Due 08/16/23 324mg HPI General Date/Time Provider Initiated Documentation: 08/02/23 16:39. HPI Narrative: MDM Patient arrives with signed warrant for involuntary hold. Paperwork has been completed by Kendal Larkin as patient has reportedly been threatening staff at the care bed.Will attempt to have med list from the [facility].Given the patient has made threatening statements will hold involuntarily. Will order as needed lorazepam. Patient mildly tachycardic. Will repeat heart rate. I have ordered a regular diet on a safety tray and clinical safety patient observer. Will engage with mental health in an attempt to find involuntary placement. Nicotine gum and as needed lorazepam ordered. No reported fevers to suggest meningitis. No history of trauma to suggest increased risk for intracranial hemorrhage. No pain out of proportion to suggest necrotizing soft tissue infection. Will attempt to get recent tomorrow from [facility]. No repeated recent ethanol use and patient's vital signs are not consistent with withdrawal. No significant tachycardia nor hypertension to suggest sympathomimetic toxidrome. Patient is not hypothermic nor flushed to suggest anticholinergic toxidrome. No respiratory depression to suggest sympathomimetic toxidrome. No obvious rigidity to suggest neuroleptic malignancy syndrome. Not comatose to suggest serotonin syndrome. 6:09 PM I spoke to Kendal Larkin. She reported increased delusions and aggression slamming and breaking phone at car bed. Patient received two injections prior to leaving the [facility]. Repeat heart rate 92. 8pm I completed EE paperwork on this patient patient and asked health coordinator to Kirill to fax the paperwork to the [facility] services. Patient reportedly is next due for his Invega on August 15 as he received it on July 19. He is not taking haloperidol according to the retreat. 10:15 PM Patient had no behavioral issues on my shift. Will sign patient out to the oncoming overnight provider. SMART medical clearance (if all five of the following are answered ``no?? then the patient is considered medically cleared and no testing is indicated): Suspect new onset psychiatric condition or features? [No] Medical conditions that require screening? [No] Diabetes (FSBS less than 60 or greater the 250) Possibility of (age 12 - 50) Other complaints that require screening Abnormal: [No] Vital signs? Temp: greater than 38.0 degrees C (100.4 degrees F) HR: less than 50 or greater than 110 BP: less than 100 systolic or greater than 180/110 (2 consecutive readings 10 min apart) RR: less than 8 or greater than 22 O2 sat: less than 95 % on room air Mental status? Cannot answer name, month/year and location (minimum A/Ox 3) If clinically intoxicated, HII score 4 or more? Physical Exam (unclothed)? Risky presentation? [No] Age less than 12 or greater than 55 Possibility of ingestion (screen all suicidal patients) Eating disorders Potential for alcohol withdrawal (daily use > or equal to 2 weeks) Ill appearing, significant injury, prolonged struggle or ``found down?? Therapeutic levels needed? [No] Phenytoin, Valproic Acid, [place], Digoxin, Warfarin, Carbamazepine Chronic conditions affecting the care of the patient: N/A History obtained from an outside historian: Mental health External record review: N/A Medications: Lorazepam Social determinants of health affecting disposition: Homelessness Management discussed with: Mental health & ED oncoming provider Treatment/interventions considered: N/A Response to therapies provided: Remained calm following lorazepam HPI Patient was reportedly threatening staff at the care bed. He reportedly said that he could choke one of the staff members if he did not get his cigarettes. He reports that he feels that he with the FBI. Denies homicidal and suicidal ideation. Reportedly eloped from the care bed multiple times. No fevers chills chest pain or shortness of breath. Unable to complete additional history secondary to the patient's noncompliance. Exam General: Disheveled-appearing in no acute distress speaking in complete sentences. Shuffling around room mumbling. Head: Normocephalic, atraumatic. Eye: Extraocular eye movements intact. No conjunctival injection. No scleral icterus. Ear, nose, mouth, throat: Grossly normal inspection. Normal voice, handling secretions normally. Neck: Trachea midline. Cardiovascular: Well-perfused distal extremities. Respiratory: Nonlabored respiration. Gastrointestinal: Nondistended abdomen. Musculoskeletal: No edema. Moving all 4 extremities spontaneously. Skin: Normal for age and race, grossly normal temperature and turgor. No acute rash. Neurologic: Alert and appropriate, no apparent acute deficits. Psychiatric: Nonsensical. Poor insight. Reported homicidal ideation at care bed. No pressured speech. No visual nor auditory hallucinations. Patient does have flight of ideas. Related Data Home Medications Medication Instructions Recorded Confirmed aspirin 81 mg tablet,delayed 81 mg PO DAILY 04/24/22 08/02/23 release (Adult Aspirin Regimen) cyanocobalamin (vitamin B-12) 1,000 mcg PO DAILY 04/24/22 08/02/23 1,000 mcg capsule multivitamin 1 tab PO DAILY 04/24/22 08/02/23 thiamine HCl (vitamin B1) 100 mg 100 mg PO DAILY 04/24/22 08/02/23 tablet vitamin E mixed 400 unit capsule 1 unit PO DAILY 04/24/22 08/02/23 epinephrine 0.3 mg/0.3 mL 0.3 mg IM Q4H PRN 12/20/22 08/02/23 injection, auto-injector (EpiPen) paliperidone palmitate 156 mg/mL 234 mg IM .monthly 06/24/23 08/02/23 intramuscular syringe (Invega Sustenna) Allergies Allergy/AdvReac Type Severity Reaction Status Date / Time bee venom protein (honey bee) Allergy Unknown Other (See Verified 08/02/23 16:42 Comment) naproxen Allergy Unknown Other (See Verified 08/02/23 16:42 Comment) prednisone Allergy Unknown Other (See Verified 08/02/23 16:42 Comment) shrimp Allergy Unknown Other (See Verified 08/02/23 16:42 Comment) sildenafil [From Viagra] Allergy Unknown Other (See Verified 08/02/23 16:42 Comment) vicotin Allergy Unknown Other (See Uncoded 08/02/23 16:42 Comment) healy milk AdvReac Unknown Other (See Uncoded 08/02/23 16:42 Comment) General ARNAV: 2 Medical Decision Making Quality:SDOH Health Related Social Needs: Health related social needs risk of homeless, transpo insecurity, personal safety PFSH All Active Problems (Updated 08/02/23 @ 22:15 by Johny Martin MD) Delusions (Acute) Psychiatric diagnosis deferred (Acute) Medical History Opioid abuse History of COPD Tobacco abuse Marijuana use Anxiety and depression Back pain Bronchitis Contact with contaminated hypodermic needle History of hyperglycemia Family history of thyroid disease Depression Schizophrenia Surgical History H/O thumb surgery Social History Smoking/Tobacco Use Status: Current every day Tobacco Type: cigarettes Smoking risk assessment performed?: Yes Alcohol Intake: current Alcohol Intake frequency: holidays/special occasions only Alcohol type: hard liquor Drug use: Occasionally Substance use type: marijuana Housing: homeless Do you feel safe at home: Yes Do you feel safe in your relationship?: Yes Additional Social history: states he got kicked out of his place
[2023-08-02] MEDS: LORazepam 0.5 MG TAB PO (17:21)
[2023-08-02 18:37] VITALS: PULSE 92
[2023-08-03 03:15] VITALS: BP 133/84; PULSE 85; RESP 16; TEMP 36.2; O2SAT 96
[2023-08-03] MEDS: LORazepam 0.5 MG TAB PO ×2 (03:33→11:19)
[2023-08-03] MEDS: Acetaminophen 500 MG TAB 1000 MG PO (04:15)
[2023-08-03 10:08] LABS: *AMPHETAMINES SCREEN URINE Negative (Negative); *BARBITURATES SCREEN URINE Negative (Negative); *BENZODIAZEPINES SCREEN URINE Negative (Negative); Cannabinoids THC Negative (Negative); Cocaine Screen,Urine Negative (Negative); METHADONE URINE SCREEN Negative (Negative); OPIATES URINE SCREEN Negative (Negative)
[2023-08-03 10:10] LABS: Tricyclic Antidepressants Negative (Negative)
[2023-08-03 11:46] VITALS: BP 117/78; PULSE 57; TEMP 36.7; O2SAT 96
[2023-08-03] MEDS: Acetaminophen 325 MG TAB 650 MG PO (13:05)
[2023-08-03] MEDS: Nicotine 2 MG GUM 4 MG CH (15:32)
--- NOTE | 2023-08-03 15:41 | CMSP_ITS ---
Date of service: 08/03/23 Time of Service: 15:42 Care Management Safety Plan Status Status: Involuntary Reason for Wait Reason for Wait: Inpatient Admission Safety Plan Safety Plan: INVOLUNTARY FOR INPATIENT PSYCHIATRIC STABILIZATION.? Patient is appropriate in all interactions since arriving at [facility]; Pt has demonstrated appropriate coping and communication skills, has articulated his or her needs and concerns and is fully engaged during staff interactions. Safety plan has been established with patient, and care team, to adhere to patient goals, identify restrictions based on behavioral status, address nutrition, and determine allowed personal belongings, tools for hygiene and personal care. Determine level of activity including ambulation, level of supervision, visitors, and determine privileges based on behaviors and level of engagement by pt. SAFETY PLAN: 1. Will remain on suicide precautions, in paper clothes 2. Will remain in Zone B under direct supervision of one-on-one staff at all times provided by [employer]; LAZ, RECRUITING MANAGER transplant coordinator. 3. May have paper cups, plates, finger foods as well as a cardboard spoon with which to eat meals. 4. Follow [facility] Management of the Admitted Behavioral Health Patient policy. 5. Shower available in Zone B without restriction. 6. Personal belongings-soft items permitted at RN discretion. 7. Visitors-none at this time. 8. Activities: soft cart items approved per RN discretion. 9.? Bathroom available in Zone B without restriction. 10. Phone: limited to [facility] cordless phone at RN discretion. Due to INVOLUNTARY status, patient is being held at [facility] by the Department of Mental Health ([facility]) until 2nd certification by [facility] Psychiatrist can be performed (within 24 hours). Staff will provide de-escalation support (CPI) as needed. If patient wishes to leave [facility], staff will contact [facility] Crisis Screener ([phone]) and Repair Weaver ([phone]) as soon as possible. In the event of elopement, notify [place] [employer] Police ([phone]). Patient is currently involuntarily at [facility]. [facility] Frontline Law Enforcement Instructor will continue seeking placement. Please contact the Repair Weaver for any needed changes to Safety Plan. Safety plan has been provided to interdepartmental care team. Patient will be transported by [facility] [facility] at time of discharge.
--- NOTE | 2023-08-03 15:41 | PDOC.CMSAFE ---
Date of service: 08/03/23 Time of Service: 15:42 Care Management Safety Plan Status Status: Involuntary Reason for Wait Reason for Wait: Inpatient Admission Safety Plan Safety Plan: INVOLUNTARY FOR INPATIENT PSYCHIATRIC STABILIZATION.? Patient is appropriate in all interactions since arriving at [facility]; Pt has demonstrated appropriate coping and communication skills, has articulated his or her needs and concerns and is fully engaged during staff interactions. Safety plan has been established with patient, and care team, to adhere to patient goals, identify restrictions based on behavioral status, address nutrition, and determine allowed personal belongings, tools for hygiene and personal care. Determine level of activity including ambulation, level of supervision, visitors, and determine privileges based on behaviors and level of engagement by pt. SAFETY PLAN: 1. Will remain on suicide precautions, in paper clothes 2. Will remain in Zone B under direct supervision of one-on-one staff at all times provided by [employer]; LAZ, CUT OFF SAW TENDER METAL junior financial analyst. 3. May have paper cups, plates, finger foods as well as a cardboard spoon with which to eat meals. 4. Follow [facility] Management of the Admitted Behavioral Health Patient policy. 5. Shower available in Zone B without restriction. 6. Personal belongings-soft items permitted at RN discretion. 7. Visitors-none at this time. 8. Activities: soft cart items approved per RN discretion. 9.? Bathroom available in Zone B without restriction. 10. Phone: limited to [facility] cordless phone at RN discretion. Due to INVOLUNTARY status, patient is being held at [facility] by the Department of Mental Health ([facility]) until 2nd certification by [facility] Psychiatrist can be performed (within 24 hours). Staff will provide de-escalation support (CPI) as needed. If patient wishes to leave [facility], staff will contact [facility] Crisis Screener ([phone]) and Mirror Finishing Machine Operator ([phone]) as soon as possible. In the event of elopement, notify [place] [employer] Police ([phone]). Patient is currently involuntarily at [facility]. [facility] Frontline Motorcycle Service Technician will continue seeking placement. Please contact the Mirror Finishing Machine Operator for any needed changes to Safety Plan. Safety plan has been provided to interdepartmental care team. Patient will be transported by [employer] at time of discharge.
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
[2023-08-04] MEDS: LORazepam 0.5 MG TAB PO ×3 (00:19→08:39)
[2023-08-04] MEDS: Nicotine 2 MG GUM 4 MG CH (05:12)
--- NOTE | 2023-08-04 07:10 | NUR.NOTE ---
Bob received. all patients sleeping. Milieu quiet.
[2023-08-04 07:56] VITALS: BP 125/82; PULSE 79; RESP 16; TEMP 36.8; O2SAT 99
[2023-08-04 09:39] VITALS: BP 87/50; PULSE 84; RESP 16; TEMP 37; O2SAT 98
--- NOTE | 2023-08-04 13:15 | CMSP_ITS ---
Date of service: 08/04/23 Time of Service: 13:15 Care Management Safety Plan Status Status: Involuntary Reason for Wait Reason for Wait: Inpatient Admission Safety Plan Safety Plan: INVOLUNTARY FOR INPATIENT PSYCHIATRIC STABILIZATION.? Patient is appropriate in all interactions since arriving at [facility]; Pt has demonstrated appropriate coping and communication skills, has articulated his or her needs and concerns and is fully engaged during staff interactions. Safety plan has been established with patient, and care team, to adhere to patient goals, identify restrictions based on behavioral status, address nutrition, and determine allowed personal belongings, tools for hygiene and personal care. Determine level of activity including ambulation, level of supervision, visitors, and determine privileges based on behaviors and level of engagement by pt. SAFETY PLAN: 1. Will remain on suicide precautions, in paper clothes 2. Will remain in Zone B under direct supervision of one-on-one staff at all times provided by [employer]; LAZ, HAND COPER revenue collector. 3. May have paper cups, plates, finger foods as well as a cardboard spoon with which to eat meals. 4. Follow [facility] Management of the Admitted Behavioral Health Patient policy. 5. Shower available in Zone B without restriction. 6. Personal belongings-soft items permitted at RN discretion. 7. Visitors-none at this time. 8. Activities: soft cart items approved per RN discretion. 9.? Bathroom available in Zone B without restriction. 10. Phone: limited to [facility] cordless phone at RN discretion. Due to INVOLUNTARY status, patient is being held at [facility] by the Department of Mental Health ([facility]) until 2nd certification by [facility] Psychiatrist can be performed (within 24 hours). Staff will provide de-escalation support (CPI) as needed. If patient wishes to leave [facility], staff will contact [facility] Crisis Screener ([phone]) and Stonecutter Apprentice Hand ([phone]) as soon as possible. In the event of elopement, notify [place] [employer] Police ([phone]). Patient is currently involuntarily at [facility]. [facility] Frontline Cloth Winding Supervisor will continue seeking placement. Please contact the Stonecutter Apprentice Hand for any needed changes to Safety Plan. Safety plan has been provided to interdepartmental care team. Patient will be transported by [employer] at time of discharge.
--- NOTE | 2023-08-04 13:15 | PDOC.CMSAFE ---
Date of service: 08/04/23 Time of Service: 13:15 Care Management Safety Plan Status Status: Involuntary Reason for Wait Reason for Wait: Inpatient Admission Safety Plan Safety Plan: INVOLUNTARY FOR INPATIENT PSYCHIATRIC STABILIZATION.? Patient is appropriate in all interactions since arriving at [facility]; Pt has demonstrated appropriate coping and communication skills, has articulated his or her needs and concerns and is fully engaged during staff interactions. Safety plan has been established with patient, and care team, to adhere to patient goals, identify restrictions based on behavioral status, address nutrition, and determine allowed personal belongings, tools for hygiene and personal care. Determine level of activity including ambulation, level of supervision, visitors, and determine privileges based on behaviors and level of engagement by pt. SAFETY PLAN: 1. Will remain on suicide precautions, in paper clothes 2. Will remain in Zone B under direct supervision of one-on-one staff at all times provided by [employer]; LAZ, HIGH VOLTAGE ELECTRICIAN floral merchandiser. 3. May have paper cups, plates, finger foods as well as a cardboard spoon with which to eat meals. 4. Follow [facility] Management of the Admitted Behavioral Health Patient policy. 5. Shower available in Zone B without restriction. 6. Personal belongings-soft items permitted at RN discretion. 7. Visitors-none at this time. 8. Activities: soft cart items approved per RN discretion. 9.? Bathroom available in Zone B without restriction. 10. Phone: limited to [facility] cordless phone at RN discretion. Due to INVOLUNTARY status, patient is being held at [facility] by the Department of Mental Health ([facility]) until 2nd certification by [facility] Psychiatrist can be performed (within 24 hours). Staff will provide de-escalation support (CPI) as needed. If patient wishes to leave [facility], staff will contact [facility] Crisis Screener ([phone]) and Skoog Operator ([phone]) as soon as possible. In the event of elopement, notify [place] [employer] ([phone]). Patient is currently involuntarily at [facility]. [facility] Frontline [facility] will continue seeking placement. Please contact the Skoog Operator for any needed changes to Safety Plan. Safety plan has been provided to interdepartmental care team. Patient will be transported by [facility] at time of discharge.
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
[2023-08-04] MEDS: Acetaminophen 325 MG TAB 650 MG PO (17:18)
--- NOTE | 2023-08-04 18:34 | MHPN_ITS ---
Date of service: 08/03/23 Time of Service: 10:38 Mental Health Emergency Note Release [facility] release signed:: Yes Reason for Visit The client is a 47 y/o single male that is currently homeless. The client is a well established [employer] client at [facility]. The client was recently discharged from [facility] on Saturday 07/29 and was at [facility] bed in [place], [place]. Yesterday the client was presenting with significant delusions and threatening and dangerous behavior so a mental health warrant was pursued. This ticket writer meets with the client in person this morning for his first daily [facility] assessment. In the last 2 weeks has the pt presented for ES prior to today?: No Client Information Client is: [employer] Well Housed: No,status: Homeless Stable housing Current Treatment Team if applicable First care maintenance team member: Name: Radha Heino Role: [employer] Label TackerStage Setting Painter Apprentice Info: [phone] Non Suicidal Self Injury Current: No History: No Safety Risk/Harm to Self or Others Current Ideation to Harm Self or Others: No Risk: Does risk to harm exist?: yes. Risk: High Risk Asssessment/Mental Status Appearance: Disheveled Attitude: Guarded Behavior: Poor impulse control Speech: Soft and Slow Affect: Expansive Mood: Expansive Thought process: Loose associations Hallucinations: No Delusions: yes, Yarsanism, Persectory/Paranoid and Bizarre Attention: Poor concentration Perception: Not impaired Orientation: Fully orientated Memory: Intact Insight: Poor Judgement: Poor Neurovegetative Symptoms Sleep: No change Appetitie: No change Interests: No change Energy: No change Libido: Not applicable Substance Use: Do you use nicotine?: Yes Have you used substances in the last 7 days?: No Additional Issues: Assaultive/Threatening Behavior: No Medical Concerns: No Client engaged in active self harm w/weapon: No Threatening to run away: Yes Child reported abuse/neglect: No Voluntarily presenting for services: No Domestic violence is a concern: No Extreme Psychosis or extreme behavior is present: No Impression The client is a single 47 y/o male that is currently homeless. The client presented to [facility] ED via [place] [employer] after being picked up on a criminal warrant for failure to appear and eloping from the care bed. The client was assessed by [facility] yesterday morning and due to his threatening behavior and delusions a MH warrant was pursued. This ticket writer meets with the client in person for his first daily QM assessment. The client told [facility] staff that he did not wish to engage with mental health. This ticket writer enters the clients room where he is asleep in the hospital bed dressed in proper paper hospital attire. The client reports that he is doing ok. When asked if he is currently endorsing suicidal or homicidal ideations he states: no thank you. When this ticket writer asks the client about his appetite he states: blood infusion that what they took out of me at [facility]. The client then states: there is cock roaches in my body. The client reports to nursing staff at [facility] that he has been drinking coffee to kill the cock roaches. As it appears the client is still presenting with significant delusions. The client then walks out of the room and reports that he is done speaking with this ticket writer. Plan/Disposition Recommended Disposition: Hospitalization No. Plan: The client will remain at [facility] ED on EE status pending 2nd certification by state psychiatrist this afternoon. Referrals have been faxed to all hospitals, [facility] reports that they are reviewing the referral after the clients 2nd certification is completed. The client will be re-assessed by [facility] daily until placement is secured. Person reported agreement to plan: No Facilities contacted if Applicable [facility] Not accepted, (pending review after 2nd certification is completed) No bed available [facility] Not accepted, Only accepting in house referrals [facility] Not accepted, Only accepting in house referrals, [facility] Not accepted, Acuity Reports/communication Outcome discussed with: ED/Personnel (Verbal passover given to ED provider Dr. Villagomez) Final Disposition/Discharge Transportation Checklist completed and faxed: No
--- NOTE | 2023-08-04 18:34 | PDOC.MHPN2 ---
Date of service: 08/03/23 Time of Service: 10:38 Mental Health Emergency Note Release [facility] release signed:: Yes Reason for Visit The client is a 47 y/o single male that is currently homeless. 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 The client was recently discharged from [facility] on Saturday 07/29 and was at [facility] bed in [place], [place]. Yesterday the client was presenting with significant delusions and threatening and dangerous behavior so a mental health warrant was pursued. This board writer meets with the client in person this morning for his first daily [facility] assessment. 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 Risk: High Risk Asssessment/Mental Status Appearance: Disheveled Attitude: Guarded Behavior: Poor impulse control Speech: Soft and Slow Affect: Expansive Mood: Expansive Thought process: Loose associations Hallucinations: No Delusions: yes, Scientologist, Persectory/Paranoid and Bizarre Attention: Poor concentration Perception: Not impaired Orientation: Fully orientated Memory: Intact Insight: Poor Judgement: Poor Neurovegetative Symptoms Sleep: No change Appetitie: No change Interests: No change Energy: No change Libido: Not applicable Substance Use: Do you use nicotine?: Yes Have you used substances in the last 7 days?: No Additional Issues: Assaultive/Threatening Behavior: No Medical Concerns: No Client engaged in active self harm w/weapon: No Threatening to run away: Yes Child reported abuse/neglect: No Voluntarily presenting for services: No Domestic violence is a concern: No Extreme Psychosis or extreme behavior is present: No Impression The client is a single 47 y/o male that is currently homeless. The client presented to [facility] ED via [place] [employer] after being picked up on a criminal warrant for failure to appear and eloping from the care bed. The client was assessed by [facility] yesterday morning and due to his threatening behavior and delusions a MH warrant was pursued. This board writer meets with the client in person for his first daily QM assessment. The client told [facility] staff that he did not wish to engage with mental health. This board writer enters the clients room where he is asleep in the hospital bed dressed in proper paper hospital attire. The client reports that he is doing ok. When asked if he is currently endorsing suicidal or homicidal ideations he states: no thank you. When this board writer asks the client about his appetite he states: blood infusion that what they took out of me at [employer]. The client then states: there is cock roaches in my body. The client reports to nursing staff at [facility] that he has been drinking coffee to kill the cock roaches. As it appears the client is still presenting with significant delusions. The client then walks out of the room and reports that he is done speaking with this board writer. Plan/Disposition Recommended Disposition: Hospitalization No. Plan: The client will remain at [facility] ED on EE status pending 2nd certification by state psychiatrist this afternoon. Referrals have been faxed to all hospitals, [facility] reports that they are reviewing the referral after the clients 2nd certification is completed. The client will be re-assessed by [facility] daily until placement is secured. Person reported agreement to plan: No Facilities contacted if Applicable [facility] Not accepted, (pending review after 2nd certification is completed) No bed available [facility] Not accepted, Only accepting in house referrals [facility] Not accepted, Only accepting in house referrals, [facility] Not accepted, Acuity Reports/communication Outcome discussed with: ED/Personnel (Verbal passover given to ED provider Dr. Villagomez) Final Disposition/Discharge Transportation Checklist completed and faxed: No
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
[2023-08-05 07:15] VITALS: BP 125/81; PULSE 89; TEMP 36.9; O2SAT 97
[2023-08-05] MEDS: Nicotine 2 MG GUM 4 MG CH ×3 (09:20→18:24)
[2023-08-05] MEDS: LORazepam 0.5 MG TAB PO (11:02)
--- NOTE | 2023-08-05 11:02 | NUR.NOTE ---
Nursing Note: patient appeared anxious and cont. to wander unit this RN and ENVIRONMENTAL MONITORING TECHNICIAN talked with pateint, offered snacks and activities. PT agreed to take PRN lorazepam given as ordered.
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
--- NOTE | 2023-08-05 19:45 | W.EDPROG ---
Date of service: 08/05/23 Time of Service: 23:02 Medical Decision Making Patient is quite calm and quiet down in the psych unit. He tells me that he feels better. Would like some coffee. He also asked for some Tylenol for his teeth. Right before this he told me that he was knocking his teeth out or had tried to knock his teeth out and I told him that that would be quite painful and he should not do this. Medical Records Medical records reviewed: Yes I reviewed the patient's medical records. Quality:SDOH Health Related Social Needs: Health related social needs risk of homeless, transpo insecurity, personal safety Sign Out Sign Out Data: Sign Out Comment: History of recent discharge from [facility] now currently on EE pending second certification in the setting of delusions and acute behavioral disturbances at the care bed. No active behavioral issues last shift. As needed lorazepam ordered. Patient is on a clinical safety monitor. Patient also has a regular diet on a safety tray. Last updated by Johny Martin MD at 08/02/23 22:16 Sign Out Comment: EE completed, patient stable throughout the night. No interventions needed. Awaiting second CERT. Last updated by Vernon Fisher DO at 08/03/23 06:21 Sign Out Comment: EE complete, second cert eval in progress Last updated by Sam Young MD at 08/03/23 16:02 Sign Out Comment: This psychotic 47-year-old with a history of substance abuse, anxiety, depression, and schizophrenia presents after threatening violence at the home that he lives in, breaking things, and threatening to kill the police. He is currently EE'd. He was supposed to talk to the psychiatrist today by [employer]. I had to go in to try to help with this and held the iPAD while encouraging the pt. to speak with psychiatry. I told him that helping his psych issues might also help his medical issues (which he was talking about). He refused to answer the psychiatrists questions. He refused to tell him where he lived or talk to him when he tried to explain his civil rights. The patient asked me to remove the iPad as he thought the psychiatrist was crazier than he was. He then began to talk about eating cockroaches. He said they did not taste very good. Psychiatry told me that he thought he had seen enough and would send a report to crisis. The patient is awaiting placement. Last updated by Sheeba Mehta MD at 08/03/23 23:28 Sign Out Comment: Patient stable throughout the night. Awaiting placement. No interventions needed. Second CERT completed. Last updated by Vernon Fisher DO at 08/04/23 05:08 Sign Out Comment: EE second cert complete Last updated by Sam Young MD at 08/04/23 17:03 Sign Out Comment: This psychotic 47-year-old with a history of substance abuse, anxiety, depression, and schizophrenia is being currently held on any status after threatening violence where he lives, breaking things, and making homicidal threats to the police. He has seen both crisis and psychiatry. He actually refused to talk to the psychiatrist yesterday and asked me to remove his iPad. The patient is awaiting placement. He has been cooperative over in the psych unit. Last updated by Sheeba Mehta MD at 08/04/23 22:25 Sign Out Comment: 47-year-old psychotic male with EEG in place and second certification upheld awaiting placement. No active behavioral issues last shift. Last updated by Johny Martin MD at 08/05/23 06:01 Discharge Plan Disposition Patient Disposition: Psychiatric Hospital/Unit Specific Psychiatric Facility: [facility] Discharge Details Clinical Impression: Delusions Primary Care Provider: Unknown,Unknown ED Provider: Sheeba Mehta Home Meds and New Rx's Prescriptions: No Action cyanocobalamin (vitamin B-12) 1,000 mcg capsule 1,000 mcg PO DAILY Patient Comments: not taking thiamine HCl (vitamin B1) 100 mg tablet 100 mg PO DAILY Patient Comments: does not take aspirin [Adult Aspirin Regimen] 81 mg tablet,delayed release (DR/EC) 81 mg PO DAILY Patient Comments: not taking multivitamin Tablet 1 tab PO DAILY Patient Comments: does not take vitamin E mixed 400 unit capsule 1 unit PO DAILY Patient Comments: does not take epinephrine [EpiPen] 0.3 mg/0.3 mL auto-injector 0.3 mg IM Q4H PRN Invega Sustenna 156 mg/mL syringe 234 mg IM .monthly Patient Comments: Next Due 08/16/23 324mg Discharge Data Discharge Date/Time-TO BE ENTERED AT DEPARTURE: 08/05/23 20:00
[2023-08-05] MEDS: Acetaminophen 325 MG TAB 650 MG PO (19:53)
--- NOTE | 2023-08-05 20:01 | NUR.NOTE ---
Patient left department with [facility] personnel. He was alert, cooperative and in nil distress.
== END 2023-08-05 20:00 ==
PROVIDERS: Emergency Medicine; Emergency Provider Emergency Medicine
DX: F22 Delusional disorders (principal); Z86.59 Personal history of other mental and behavioral disorders; F19.10 Other psychoactive substance abuse, uncomplicated; F12.90 Cannabis use, unspecified, uncomplicated
CPT/HCPCS: 00123; 80307; 99285